=== PATIENT | male | born 1980 | race Caucasian/White ===

== ENCOUNTER 2017-11-06 06:40 | Emergency (ER) | payer BC, OTHER ==
[2017-11-06 06:50] VITALS: BP 168/101; PULSE 83; RESP 17; TEMP 97.5
[2017-11-06] MEDS ORDERED: IBUPROFEN 400 MG TAB PO STA (07:38)
[2017-11-06] MEDS ORDERED: traMADol 50 MG TAB PO STA (07:38)
--- NOTE | 2017-11-06 08:31 | ED ---
General Adult HPI - General Chief complaint: Back Pain/Injury Stated complaint: BACK PAIN Time Seen by Provider: 11/06/17 08:15 Source: patient, RN notes reviewed Mode of arrival: ambulatory Limitations: no limitations - History of Present Illness Initial comments: 37-year-old male who presents emergency room today with chief complaint of pain to the left side of his neck. He states that he has had some pain for last 3 weeks started when he woke up 3 weeks ago. He went to a chiropractor which did help some. He states he was working yesterday has had more increased irritation was unable to sleep last night. Patient states is worse with movements of the left shoulder he does have some radiation going down left arm into proximal forearm area. States pain worse with rotation of the head and neck to the left and right. He denies any other injuries or traumas. Denies any other complaints associated symptoms. Patient denies any recent fever, chills, shortness of breath, chest pain, back pain, abdominal pain, nausea or vomiting, dysuria or hematuria, constipation or diarrhea, headaches or visual changes, or any other complaints. - Related Data Home Medications Medication Instructions Recorded Confirmed Acetaminophen Tab [Tylenol Tab] 650 mg PO Q6H PRN 11/06/17 11/06/17 Ibuprofen [Motrin] 200 - 400 mg PO Q6HR PRN 11/06/17 11/06/17 Ranitidine HCl [Zantac] 150 mg PO BID 11/06/17 11/06/17 Previous Rx's Medication Instructions Recorded Cyclobenzaprine [Flexeril] 10 mg PO TID #20 tab 11/06/17 Dexamethasone 0.75 mg PO DIRECTED #12 tablet 11/06/17 Hydrocodone/Acetaminophen [Hammond 1 each PO Q6HR PRN #12 tab 11/06/17 5-325] Ibuprofen [Motrin] 800 mg PO Q6HR #30 tab 11/06/17 Allergies Allergy/AdvReac Type Severity Reaction Status Date / Time No Known Allergies Allergy Verified 11/06/17 07:56 Review of Systems ROS Statement: Those systems with pertinent positive or pertinent negative responses have been documented in the HPI. ROS Other: All systems not noted in ROS Statement are negative. Past Medical History Past Medical History: No Reported History History of Any Multi-Drug Resistant Organisms: None Reported Past Surgical History: Cholecystectomy, Orthopedic Surgery Additional Past Surgical History / Comment(s): sinus Past Psychological History: No Psychological Hx Reported Smoking Status: Never smoker Past Alcohol Use History: None Reported Past Drug Use History: None Reported General Exam - General Exam Comments Initial Comments: General: The patient is awake and alert, in no distress, and does not appear acutely ill. Eye: Pupils are equal, round and reactive to light, extra-ocular movements are intact. No nystagmus. There is normal conjunctiva bilaterally. No signs of icterus. Ears, nose, mouth and throat: There are moist mucous membranes and no oral lesions. Neck: The neck is supple, there is no tenderness or JVD. Cardiovascular: There is a regular rate and rhythm. No murmur, rub or gallop is appreciated. Respiratory: Lungs are clear to auscultation, respirations are non-labored, breath sounds are equal. No wheezes, stridor, rales, or rhonchi. Musculoskeletal: Normal appearance of cervical, thoracic, lumbar spine with no step-offs forms. No tenderness midline. Patient does have tenderness in the trapezius area on the left. Pain reproduced with certain movements and on palpation. Strength 5/5. Sensation intact. Pulses equal bilaterally 2+. Neurological: A&O x 3. CN II-XII intact, There are no obvious motor or sensory deficits. Coordination appears grossly intact. Speech is normal. Skin: Skin is warm and dry and no rashes or lesions are noted. Psychiatric: Cooperative, appropriate mood & affect, normal judgment. Limitations: no limitations Course Vital Signs 11/06/17 06:45 Temperature 97.5 F L Pulse Rate 83 Respiratory 17 Rate Blood Pressure 168/101 O2 Sat by Pulse 96 Oximetry Medical Decision Making - Medical Decision Making Patient will be treated with pain medication, anti-inflammatories, musculoskeletal and steroids. He is advised follow family doctor or orthopedics in the next 2 days to have further evaluation possible MRI. Patient must return to the emergency room symptoms increase worsen or for any other concerns. He states understanding and is in agreement. Disposition Clinical Impression: Cervical radiculopathy Disposition: HOME SELF-CARE Condition: Good Instructions: Cervical Radiculopathy (ED) Additional Instructions: Please use medication as discussed. Please follow-up with orthopedic/family doctor in the next 2 days of symptoms have not improved. Please return to emergency room if the symptoms increase or worsen or for any other concerns. Prescriptions: Cyclobenzaprine [Flexeril] 10 mg PO TID #20 tab Dexamethasone 0.75 mg PO DIRECTED #12 tablet Hydrocodone/Acetaminophen [Hammond 5-325] 1 each PO Q6HR PRN #12 tab PRN Reason: Pain Ibuprofen [Motrin] 800 mg PO Q6HR #30 tab Referrals: Camacho Brown MD [Primary Care Provider] - 1-2 days Yara Crump DO [Doctor of Osteopathic Medicine] - 1-2 days Time of Disposition: 08:28
[2017-11-06] MEDS ORDERED: CYCLOBENZAPRINE 10MG STARTER 3 TAB BTL PO STA (08:39)
== END 2017-11-06 08:45 | disposition home or self-care (01) ==
LOC: EC 06:40
DX: M54.12 Radiculopathy, cervical region (principal); Z79.899 Other long term (current) drug therapy
CPT/HCPCS: 99283

== ENCOUNTER 2019-09-18 09:03 | Emergency (ER) | payer OTHER ==
[2019-09-18 09:26] VITALS: RESP 16
--- NOTE | 2019-09-18 09:28 | ED ---
General Adult HPI - General Chief complaint: Recheck/Abnormal Lab/Rx Stated complaint: abn EKG Time Seen by Provider: 09/18/19 09:08 Source: patient Mode of arrival: ambulatory Limitations: no limitations - History of Present Illness Initial comments: Dictation was produced using [employer] dictation software. please excuse any grammatical, word or spelling errors. Chief Complaint: 39-year-old male sent in from urgent care for abnormal EKG. History of Present Illness:-year-old male U was seen at the urgent care earlier today. He was seen at the clinic for chest pain and shortness of breath. Patient has been having URI type symptoms with cough productive of green sputum. Patient also has been having runny nose. Patient was evaluated at the urgent care and EKG was performed showing abnormality. Patient was then referred to come to the emergency department for further care. Patient states he has some mild chest pain that is sharp and worse with coughing.. No radiation. No associated diaphoresis or nausea. Patient has a history of blood clots. Denies any lower extremity symptoms. The ROS documented in this emergency department record has been reviewed and confirmed by me. Those systems with pertinent positive or negative responses have been documented in the HPI. All other systems are other negative and/or noncontributory. PHYSICAL EXAM: General Impression: Alert and oriented x3, not in acute distress HEENT: Normocephalic atraumatic, extra-ocular movements intact, pupils equal and reactive to light bilaterally, mucous membranes moist. Cardiovascular: Heart regular rate and rhythm, S1&S2 audible, no murmurs, rubs or gallops Chest: Lungs clear to auscultation bilaterally, no rhonchi, no wheeze, no rales Abdomen: Bowel sounds present, abdomen soft, non-tender, non-distended, no organomegaly Musculoskeletal: Pulses present and equal in all extremities, no peripheral edema Motor: no focal deficits noted Neurological: CN II-XII grossly intact, no focal motor or sensory deficits noted Skin: Intact with no visualized rashes Psych: Normal affect and mood ED course: 39 old male presents with abnormal EKG. He reports URI symptoms. Upon arrival are within acceptable limits. EKG from clinic was reviewed showing incomplete. On a branch block with a QRS of 107. There appears to be some ST depressions in the lateral precordial leads. EKG performed at our facility showing redemonstration of incomplete right bundle branch block without any signs of ischemia or infarction. Laboratory evaluation obtained found to be unremarkable. D-dimer is negative. Troponins negative. for pulmonary embolus. patient's pain is atypical. ekg appears benign. patient told to follow up with primary care physician upon discharge. is given prescriptions for zithromax pack. Return parameters discussed. All questions answered. Patient clear for discharge. EKG interpretation: Ventricular rate 94, normal sinus rhythm, and complete right bundle branch block, VT interval 140, care is 102, QTc 455. No VT prolongation, no QTC prolongation, no ST or T-wave changes noted. No old EKG for comparison. Overall, this EKG is unremarkable - Related Data Home Medications Medication Instructions Recorded Confirmed Acetaminophen Tab [Tylenol Tab] 1,000 mg PO Q6HR PRN 09/18/19 09/18/19 Fluticasone/Vilanterol [Breo 1 puff INHALATION RT-DAILY 09/18/19 09/18/19 Ellipta 100-25 Mcg Inhaler] Ibuprofen [Motrin Ib] 800 mg PO Q6H PRN 09/18/19 09/18/19 Previous Rx's Medication Instructions Recorded Azithromycin [Zithromax Z-pack] 0 mg PO DIRECTED #6 tab 09/18/19 Allergies Allergy/AdvReac Type Severity Reaction Status Date / Time No Known Allergies Allergy Verified 09/18/19 10:14 Review of Systems ROS Statement: Those systems with pertinent positive or pertinent negative responses have been documented in the HPI. ROS Other: All systems not noted in ROS Statement are negative. Past Medical History Past Medical History: No Reported History History of Any Multi-Drug Resistant Organisms: None Reported Past Surgical History: Cholecystectomy, Orthopedic Surgery Additional Past Surgical History / Comment(s): sinus Past Psychological History: No Psychological Hx Reported Smoking Status: Never smoker Past Alcohol Use History: None Reported Past Drug Use History: None Reported General Exam Limitations: no limitations Course Vital Signs 09/18/19 09/18/19 09:04 09:25 Temperature 98.3 F Pulse Rate 90 84 Respiratory 18 16 Rate Blood Pressure 146/89 O2 Sat by Pulse 99 99 Oximetry Medical Decision Making - Lab Data Result diagrams: 09/18/19 09:22 09/18/19 09:22 Lab Results 09/18/19 09/18/19 09/18/19 Range/Units 09:22 09:22 09:22 WBC 10.2 (3.8-10.6) k/uL RBC 4.59 (4.30-5.90) m/uL Hgb 14.8 (13.0-17.5) gm/dL Hct 42.2 (39.0-53.0) % MCV 91.8 (80.0-100.0) fL MCH 32.2 (25.0-35.0) pg MCHC 35.1 (31.0-37.0) g/dL RDW 12.6 (11.5-15.5) % Plt Count 277 (150-450) k/uL Neutrophils % 72 % Lymphocytes % 19 % Monocytes % 5 % Eosinophils % 1 % Basophils % 1 % Neutrophils # 7.4 (1.3-7.7) k/uL Lymphocytes # 1.9 (1.0-4.8) k/uL Monocytes # 0.5 (0-1.0) k/uL Eosinophils # 0.1 (0-0.7) k/uL Basophils # 0.1 (0-0.2) k/uL PT 10.0 (9.0-12.0) sec INR 0.9 (<1.2) APTT 25.8 (22.0-30.0) sec D-Dimer <0.17 (<0.60) mg/L FEU Sodium 142 (137-145) mmol/L Potassium 4.1 (3.5-5.1) mmol/L Chloride 105 (98-107) mmol/L Carbon Dioxide 26 (22-30) mmol/L Anion Gap 11 mmol/L BUN 23 H (9-20) mg/dL Creatinine 0.84 (0.66-1.25) mg/dL Est GFR (CKD-EPI)AfAm >90 (>60 ml/min/1.73 sqM) Est GFR (CKD-EPI)NonAf >90 (>60 ml/min/1.73 sqM) Glucose 119 H (74-99) mg/dL Calcium 10.7 H (8.4-10.2) mg/dL Magnesium 2.0 (1.6-2.3) mg/dL Troponin I (0.000-0.034) ng/mL 09/18/19 Range/Units 09:22 WBC (3.8-10.6) k/uL RBC (4.30-5.90) m/uL Hgb (13.0-17.5) gm/dL Hct (39.0-53.0) % MCV (80.0-100.0) fL MCH (25.0-35.0) pg MCHC (31.0-37.0) g/dL RDW (11.5-15.5) % Plt Count (150-450) k/uL Neutrophils % % Lymphocytes % % Monocytes % % Eosinophils % % Basophils % % Neutrophils # (1.3-7.7) k/uL Lymphocytes # (1.0-4.8) k/uL Monocytes # (0-1.0) k/uL Eosinophils # (0-0.7) k/uL Basophils # (0-0.2) k/uL PT (9.0-12.0) sec INR (<1.2) APTT (22.0-30.0) sec D-Dimer (<0.60) mg/L FEU Sodium (137-145) mmol/L Potassium (3.5-5.1) mmol/L Chloride (98-107) mmol/L Carbon Dioxide (22-30) mmol/L Anion Gap mmol/L BUN (9-20) mg/dL Creatinine (0.66-1.25) mg/dL Est GFR (CKD-EPI)AfAm (>60 ml/min/1.73 sqM) Est GFR (CKD-EPI)NonAf (>60 ml/min/1.73 sqM) Glucose (74-99) mg/dL Calcium (8.4-10.2) mg/dL Magnesium (1.6-2.3) mg/dL Troponin I <0.012 (0.000-0.034) ng/mL Disposition Clinical Impression: Chest wall muscle strain Disposition: HOME SELF-CARE Condition: Good Instructions (If sedation given, give patient instructions): Chest Pain (ED) Prescriptions: Azithromycin [Zithromax Z-pack] 0 mg PO DIRECTED #6 tab Is patient prescribed a controlled substance at d/c from ED?: No Referrals: Papa Kitchen MD [Primary Care Provider] - 1-2 days Time of Disposition: 11:01
[2019-09-18 09:40] LABS: Basophils # (A) 0.1 k/uL (0-0.2); Basophils % (A) 1 %; Eosinophils # (A) 0.1 k/uL (0-0.7); Eosinophils % (A) 1 %; HCT 42.2 % (39.0-53.0); HGB 14.8 gm/dL (13.0-17.5); Lymphocytes # (A) 1.9 k/uL (1.0-4.8); Lymphocytes % (A) 19 %; MCH 32.2 pg (25.0-35.0); MCHC 35.1 g/dL (31.0-37.0); MCV 91.8 fL (80.0-100.0); Mean Platelet Volume 6.4; Monocytes # (A) 0.5 k/uL (0-1.0); Monocytes % (A) 5 %; Neutrophils # (A) 7.4 k/uL (1.3-7.7); Neutrophils % (A) 72 %; Platelet Count 277 k/uL (150-450); RBC 4.59 m/uL (4.30-5.90); RDW 12.6 % (11.5-15.5); WBC 10.2 k/uL (3.8-10.6)
[2019-09-18 09:45] LABS: African American GFR (CKD) >90 (>60 ml/min/1.73 sqM); Anion Gap 11 mmol/L; Blood Urea Nitrogen 23 mg/dL (9-20); Calcium 10.7 mg/dL (8.4-10.2); Carbon Dioxide 26 mmol/L (22-30); Chloride 105 mmol/L (98-107); Glucose 119 mg/dL (74-99); Non-African American GFR(CKD) >90 (>60 ml/min/1.73 sqM); Potassium 4.1 mmol/L (3.5-5.1); Sodium 142 mmol/L (137-145)
--- NOTE | 2019-09-18 09:49 | XR ---
EXAMINATION TYPE: XR chest 2V DATE OF EXAM: 09/18/2019 COMPARISON: None INDICATION: Abnormal EKG TECHNIQUE: Frontal and lateral views of the chest are obtained. FINDINGS: The heart size is normal. The pulmonary vasculature is normal. The lungs are clear. IMPRESSION: 1. No acute pulmonary process.
[2019-09-18 09:56] LABS: INR 0.9 (<1.2); Partial Thromboplastin Time 25.8 sec (22.0-30.0)
[2019-09-18 10:07] LABS: D-Dimer <0.17 mg/L FEU (<0.60)
[2019-09-18 11:14] VITALS: BP 151/97; PULSE 86; TEMP 98
== END 2019-09-18 11:13 | disposition home or self-care (01) ==
LOC: EC 09:03
DX: S29.011A Strain of muscle and tendon of front wall of thorax, initial encounter (principal); I45.10 Unspecified right bundle-branch block; Z79.51 Long term (current) use of inhaled steroids
CPT/HCPCS: 36415; 71046; 80048; 83735; 84484; 85025; 85379; 85610; 85730; 93005; 99285

== ENCOUNTER → 2021-03-24 | Outpatient (CLI) | payer OTHER ==
[2021-03-24 15:13] LABS: Basophils # (A) 0.09 X 10*3/uL (0.00-0.10); Basophils % (A) 0.7 %; Eosinophils # (A) 0.08 X 10*3/uL (0.04-0.35); Eosinophils % (A) 0.6 %; HCT 46.8 % (39.6-50.0); Lymphocytes # (A) 3.48 X 10*3/uL (0.90-5.00); Lymphocytes % (A) 27.2 %; MCH 30.5 pg (27.0-32.0); MCHC 32.1 g/dL (32.0-37.0); MCV 95.1 fL (80.0-97.0); Mean Platelet Volume 10.4 fL (9.5-12.2); Monocytes # (A) 0.84 X 10*3/uL (0.20-1.00); Monocytes % (A) 6.6 %; Neutrophils # (A) 7.97 X 10*3/uL (1.80-7.70); Neutrophils % (A) 62.2 %; Platelet Count 267 X 10*3/uL (140-440); RBC 4.92 X 10*6/uL (4.40-5.60); RDW 13.2 % (11.5-14.5)
[2021-03-24 18:21] LABS: Hemoglobin A1C 5.5 % (4.0-6.0)
[2021-03-24 19:21] LABS: Gliadin AB IgA, Deaminated NEGATIVE (NEGATIVE); Gliadin AB IgA, Unit <0.2 U/mL; Gliadin AB IgG, Deaminated NEGATIVE (NEGATIVE)
[2021-03-25 01:51] LABS: Chol/HDL Ratio 3.69; LDL Cholesterol,Calculated 108.2 mg/dL (0.0-131.0); VLDL Calculation 23.8 mg/dL (5.00-40.00)
[2021-03-25 01:52] LABS: African American GFR (CKD) 107.9 (60.0-200.0); Albumin 4.7 g/dL (3.80-4.90); Albumin/Globulin Ratio 1.88 (1.60-3.17); Globulin 2.5 g/dL (1.6-3.3); Non-African American GFR(CKD) 93.1 (60.0-200.0); Potassium 4.5 mmol/L (3.5-5.5); Prostate Specific Antigen 0.6 ng/mL (0.0-2.5); Total Bilirubin 0.8 mg/dL (0.3-1.2); Total Protein 7.2 g/dL (6.2-8.2)
[2021-03-25 15:33] LABS: Immunoglobulin E 3.61 IU/mL (0.00-114.00)
[2021-03-26 18:20] LABS: Cow's Milk IgG 52.1 mcg/mL (< 2.0)
== END | disposition home or self-care (01) ==
LOC: LABWHC1 08:07
PROVIDERS: ATTEND Family Medicine
DX: Z00.00 Encounter for general adult medical examination without abnormal findings (principal); E23.0 Hypopituitarism; T78.1XXA Other adverse food reactions, not elsewhere classified, initial encounter
CPT/HCPCS: 36415; 80053; 80061; 82672; 82785; 83036; 83516; 84153; 84402; 84403; 84443; 85025; 86001

== ENCOUNTER 2021-04-05 13:24 | Emergency (ER) | payer OTHER ==
[2021-04-05 13:44] VITALS: BP 143/96; PULSE 88; RESP 20; TEMP 97.9
[2021-04-05] MEDS ORDERED: KETOROLAC 15 MG/ML 1 ML VIAL IM STA (13:57)
[2021-04-05] MEDS ORDERED: CYCLOBENZAPRINE 10 MG TAB PO STA (13:57)
[2021-04-05] MEDS ORDERED: LIDOCAINE 5% PATCH TOPICAL STA (13:57)
--- NOTE | 2021-04-05 13:57 | ED ---
Back Pain HPI - General Chief Complaint: Back Pain/Injury Stated Complaint: back pain Time Seen by Provider: 04/05/21 13:55 Source: patient, EMS Limitations: no limitations - History of Present Illness Initial Comments: 40-year-old male presents to the emergency department with a chief complaint of back pain. He has history of chronic back pain that comes and goes. States thi s most recent bout started approximately 2 weeks ago with gradual increase in severity. States it is located on the left paraspinal lumbar region with radiation to the left lower extremity. He states he is not able to ambulate. Pain exacerbated with any weightbearing or twisting motion on his back. He denies any direct injuries to the back. Denies saddle anesthesia, urinary retention with overflow or bowel incontinence. - Related Data Home Medications Medication Instructions Recorded Confirmed Cyclobenzaprine [Flexeril] 10 mg PO Q8H PRN 04/05/21 04/05/21 Ibuprofen [Motrin] 800 mg PO Q8H PRN 04/05/21 04/05/21 Omeprazole 20 mg PO DAILY 04/05/21 04/05/21 Allergies Allergy/AdvReac Type Severity Reaction Status Date / Time No Known Allergies Allergy Verified 04/05/21 13:57 Review of Systems ROS Statement: Those systems with pertinent positive or pertinent negative responses have been documented in the HPI. ROS Other: All systems not noted in ROS Statement are negative. Past Medical History Past Medical History: No Reported History History of Any Multi-Drug Resistant Organisms: None Reported Past Surgical History: Cholecystectomy, Orthopedic Surgery Additional Past Surgical History / Comment(s): sinus Past Psychological History: No Psychological Hx Reported Past Alcohol Use History: None Reported Past Drug Use History: None Reported General Exam Limitations: no limitations General appearance: alert, in no apparent distress, obese Head exam: Present: atraumatic, normocephalic, normal inspection Eye exam: Present: normal appearance, PERRL, EOMI Pupils: Present: normal accommodation ENT exam: Present: normal exam, normal oropharynx, mucous membranes moist Neck exam: Present: normal inspection, full ROM. Absent: tenderness, lymphadenopathy Respiratory exam: Present: normal lung sounds bilaterally. Absent: respiratory distress Cardiovascular Exam: Present: regular rate, normal rhythm, normal heart sounds. Absent: systolic murmur GI/Abdominal exam: Present: soft. Absent: distended, tenderness, guarding, rigid Extremities exam: Present: normal inspection, full ROM, normal capillary refill. Absent: tenderness Back exam: Present: normal inspection, full ROM, tenderness, paraspinal tenderness (left paraspinal tenderness), other (Positive leg raise test) Neurological exam: Present: alert, oriented X3 Psychiatric exam: Present: normal affect, normal mood Skin exam: Present: warm, dry, intact, normal color Course Vital Signs 04/05/21 13:36 Temperature 97.9 F Pulse Rate 88 Respiratory 20 Rate Blood Pressure 143/96 O2 Sat by Pulse 95 Oximetry Disposition Clinical Impression: Mechanical back pain, Lumbar radiculopathy Disposition: HOME SELF-CARE Condition: Stable Instructions (If sedation given, give patient instructions): Acute Low Back Pain (ED) Additional Instructions: Please return to the Emergency Department if symptoms worsen or any other concerns. Follow-up with technical maintenance specialist. Take prescribed medication as directed. Is patient prescribed a controlled substance at d/c from ED?: No Referrals: Papa Kitchen MD [Primary Care Provider] - 1-2 days Mukesh Choi DO [Doctor of Osteopathic Medicine] - 1-2 days Time of Disposition: 15:11
--- NOTE | 2021-04-05 14:45 | XR ---
EXAMINATION TYPE: XR lumbar spine 2 or 3V DATE OF EXAM: 04/05/2021 COMPARISON: NONE HISTORY: Low back pain TECHNIQUE: 3 views lumbar spine FINDINGS: There are 4 nonrib-bearing lumbar-type vertebral bodies. Vertebral body heights are preserved. Multil evel endplate sclerosis and osteophytosis is noted predominantly at the thoracolumbar junction. IMPRESSION: 1. 4 nonrib-bearing lumbar type vertebral bodies. 2. Multilevel disc disease.
== END 2021-04-05 15:19 | disposition home or self-care (01) ==
LOC: EC 13:24
DX: M54.16 Radiculopathy, lumbar region (principal)
CPT/HCPCS: 72100; 99283; 96372; J1885

== ENCOUNTER → 2021-04-19 | Outpatient (CLI) | payer OTHER ==
--- NOTE | 2021-04-20 04:04 | MR ---
EXAMINATION TYPE: MR lumbar spine wo con DATE OF EXAM: 04/19/2021 COMPARISON: None HISTORY: LBP, LLE radiculopathy. Multiplanar multiecho imaging of the lumbar spine was performed without contrast. The vertebra have normal alignment. There is some decreased signal in the L5-S1 disc. Disc spaces ove rall are fairly normal. There is no compression fracture. There is no paraspinal mass. Sacroiliac otoniel nts are intact. The posterior elements are intact. There is a small posterior disc bulge at L5-S1. IMPRESSION: Small posterior disc bulging at L5-S1. No fracture. There is developmentally small spinal canal and t his patient is at higher risk for acquired spinal stenosis.
== END | disposition home or self-care (01) ==
LOC: RADMRIMAIN 21:57
PROVIDERS: ATTEND Family Medicine
DX: M51.17 Intervertebral disc disorders with radiculopathy, lumbosacral region (principal)
CPT/HCPCS: 72148

== ENCOUNTER 2022-06-21 06:27 | Emergency (ER) | payer OTHER ==
[2022-06-21] MEDS ORDERED: KETOROLAC 15 MG/ML 1 ML VIAL IVP STA (06:35)
[2022-06-21] MEDS ORDERED: SODIUM CHLORIDE 0.9% 1,000 ML IV STA (06:35)
[2022-06-21] MEDS ORDERED: HYDROmorphone 0.5 MG/0.5 ML SYRINGE IVP STA (06:35)
[2022-06-21] MEDS ORDERED: SODIUM CHLORIDE 0.9% 500 ML 500 ML IV STA (06:35)
--- NOTE | 2022-06-21 06:50 | ED ---
General Adult HPI - General Stated complaint: Abdominal Pain Time Seen by Provider: 06/21/22 06:35 Source: patient, EMS Mode of arrival: EMS Limitations: no limitations - History of Present Illness Initial comments: 41-year-old male presents emergency department via EMS with chief complaint of abdominal pain. Patient states that pain started yesterday worsened throughout the night. Patient states started in his upper abdomen states is not located in her lower abdomen bilaterally and rates his back. Patient states severe pain is did receive fentanyl by EMS which minimally helped. Patient has no dysuria no hematuria. Patient states that he has had a prior cholecystomy, appendectomy. Patient denies any fevers or chills slight nausea was given Zofran. No chest pain or shortness breath at this time. - Related Data Home Medications Medication Instructions Recorded Confirmed Cyclobenzaprine [Flexeril] 10 mg PO Q8H PRN 04/05/21 04/05/21 Ibuprofen [Motrin] 800 mg PO Q8H PRN 04/05/21 04/05/21 Omeprazole 20 mg PO DAILY 04/05/21 04/05/21 Previous Rx's Medication Instructions Recorded Amoxic-Pot Clav 875-125Mg 1 tab PO Q12HR #20 tab 06/21/22 [Augmentin 875-125] Ondansetron Odt [Zofran Odt] 4 mg PO Q8HR PRN #10 tab 06/21/22 Allergies Allergy/AdvReac Type Severity Reaction Status Date / Time No Known Allergies Allergy Verified 04/05/21 13:57 Review of Systems ROS Statement: Those systems with pertinent positive or pertinent negative responses have been documented in the HPI. ROS Other: All systems not noted in ROS Statement are negative. Past Medical History Past Medical History: No Reported History History of Any Multi-Drug Resistant Organisms: None Reported Past Surgical History: Cholecystectomy, Orthopedic Surgery Additional Past Surgical History / Comment(s): sinus Past Psychological History: No Psychological Hx Reported Past Alcohol Use History: None Reported Past Drug Use History: None Reported General Exam General appearance: alert, in no apparent distress Head exam: Present: atraumatic, normocephalic, normal inspection Eye exam: Present: normal appearance, PERRL, EOMI. Absent: scleral icterus, conjunctival injection, periorbital swelling ENT exam: Present: normal exam, normal oropharynx, mucous membranes moist Neck exam: Present: normal inspection, full ROM. Absent: tenderness, meningismus, lymphadenopathy Respiratory exam: Present: normal lung sounds bilaterally. Absent: respiratory distress, wheezes, rales, rhonchi, stridor Cardiovascular Exam: Present: regular rate, normal rhythm, normal heart sounds. Absent: systolic murmur, diastolic murmur, rubs, gallop, clicks GI/Abdominal exam: Present: soft, tenderness, normal bowel sounds. Absent: distended, guarding, rebound, rigid Neurological exam: Present: alert, oriented X3, CN II-XII intact Skin exam: Present: warm, dry, intact, normal color. Absent: rash Course Vital Signs 06/21/22 07:01 Temperature 99.1 F Pulse Rate 107 H Respiratory 20 Rate Blood Pressure 108/77 O2 Sat by Pulse 94 L Oximetry Medical Decision Making - Medical Decision Making 41-year-old male present emergency department with complaints of lower abdominal pain, CAT scan shows evidence of acute diverticulitis patient has mild leukocytosis. There is no abscess or perforation noted. Patient will be discharged on clear liquid diet, oral antibiotics, pain control return parameters were discussed. - Lab Data Result diagrams: 06/21/22 07:18 Lab Results 06/21/22 Range/Units 07:18 WBC 18.2 H (3.8-10.6) k/uL RBC 5.11 (4.30-5.90) m/uL Hgb 16.0 (13.0-17.5) gm/dL Hct 48.4 (39.0-53.0) % MCV 94.7 (80.0-100.0) fL MCH 31.2 (25.0-35.0) pg MCHC 33.0 (31.0-37.0) g/dL RDW 13.2 (11.5-15.5) % Plt Count 229 (150-450) k/uL MPV 9.5 Neutrophils % 90 % Lymphocytes % 5 % Monocytes % 3 % Eosinophils % 2 % Basophils % 0 % Neutrophils # 16.4 H (1.3-7.7) k/uL Lymphocytes # 1.0 (1.0-4.8) k/uL Monocytes # 0.5 (0-1.0) k/uL Eosinophils # 0.3 (0-0.7) k/uL Basophils # 0.0 (0-0.2) k/uL Disposition Clinical Impression: Diverticulitis Disposition: HOME SELF-CARE Condition: Stable Instructions (If sedation given, give patient instructions): Diverticulitis (ED), Diverticulitis Diet (ED) Additional Instructions: Please return to the Emergency Department if symptoms worsen or any other concerns. Prescriptions: Amoxic-Pot Clav 875-125Mg [Augmentin 875-125] 1 tab PO Q12HR #20 tab Ondansetron Odt [Zofran Odt] 4 mg PO Q8HR PRN #10 tab PRN Reason: Nausea Is patient prescribed a controlled substance at d/c from ED?: No Referrals: Papa Kitchen MD [Primary Care Provider] - 1-2 days Time of Disposition: 08:54
[2022-06-21] MEDS ORDERED: ONDANSETRON 4 MG/2 ML VIAL IVP STA (07:52)
[2022-06-21 08:00] LABS: Basophils % (A) 0 %; Eosinophils # (A) 0.3 k/uL (0-0.7); Eosinophils % (A) 2 %; HCT 48.4 % (39.0-53.0); Lymphocytes % (A) 5 %; MCH 31.2 pg (25.0-35.0); MCV 94.7 fL (80.0-100.0); Mean Platelet Volume 9.5; Monocytes # (A) 0.5 k/uL (0-1.0); Monocytes % (A) 3 %; Neutrophils # (A) 16.4 k/uL (1.3-7.7); Neutrophils % (A) 90 %; Platelet Count 229 k/uL (150-450); RBC 5.11 m/uL (4.30-5.90); RDW 13.2 % (11.5-15.5); WBC 18.2 k/uL (3.8-10.6)
--- NOTE | 2022-06-21 08:49 | CT ---
EXAMINATION TYPE: CT abdomen pelvis w con CT DLP: 2696.4 mGycm, Automated exposure control for dose reduction was used. DATE OF EXAM: 06/21/2022 8:34 AM COMPARISON: None CLINICAL INDICATION:Male, 41 years old with history of abdominal pain; Abdominal pain TECHNIQUE: Axial CT of the abdomen and pelvis. Sagittal and coronal reformats were created on a [employer] workstation. Contrast used:100 mL of Isovue 300 with IV Contrast, Oral contrast used: without Oral Contrast FINDINGS: LOWER CHEST: Unremarkable ABDOMEN LIVER: Diffusely hypoattenuating parenchyma. GALLBLADDER AND BILE DUCTS: The gallbladder is surgically absent. PANCREAS: Unremarkable. SPLEEN: Unremarkable. ADRENAL GLANDS: Unremarkable. KIDNEYS AND URETERS: No evidence of hydronephrosis or renal calculus. The ureters are unremarkable. Right renal cyst. PELVIS BLADDER: Unremarkable REPRODUCTIVE: Unremarkable. ABDOMEN & PELVIS STOMACH AND BOWEL: There are colonic diverticula present, one of which has adjacent fat stranding marc nges. No organizing fluid collection or evidence of pneumoperitoneum. No evidence of bowel obstructio n. PERITONEUM: No evidence of pneumoperitoneum or free fluid. VASCULATURE: No evidence of aortic aneurysm. MUSCULOSKELETAL: No acute osseous abnormalities LYMPH NODES: No gross evidence for lymphadenopathy. SOFT TISSUE/ABDOMINAL WALL: Bilateral fat filled inguinal hernias. Small fat-containing umbilical her haydee. IMPRESSION: 1. Acute uncomplicated sigmoid colon diverticulitis.
[2022-06-21] MEDS ORDERED: ACET/COD 300 MG/30 MG STARTER PACK 6 TAB BTL PO STA (08:55)
[2022-06-21 09:21] VITALS: BP 108/71; PULSE 98; RESP 18; TEMP 98.9
== END 2022-06-21 10:09 | disposition home or self-care (01) ==
LOC: EC 06:27
DX: K57.32 Diverticulitis of large intestine without perforation or abscess without bleeding (principal)
CPT/HCPCS: 99284 ×2; 96374 ×2; 96375 ×2; 36415; 85025; 74177; 96361; J2405; J1885; J1170; Q9967

== ENCOUNTER 2022-06-22 14:28 | Inpatient (IN) | payer OTHER ==
[2022-06-22] MEDS ORDERED: HYDROmorphone 0.5 MG/0.5 ML SYRINGE IVP STA (14:33)
[2022-06-22] MEDS ORDERED: SODIUM CHLORIDE 0.9% 2,000 ML IV STA (14:33)
--- NOTE | 2022-06-22 14:38 | ED ---
Abdominal Pain HPI - General Chief Complaint: Abdominal Pain Stated Complaint: abd pain Time Seen by Provider: 06/22/22 14:30 Source: patient, EMS, RN notes reviewed Mode of arrival: EMS Limitations: no limitations - History of Present Illness Initial Comments: 41-year-old male presents emergency department via EMS chief complaint abdominal pain. Patient states started about 3 days ago seen here yesterday had full workup including labs, CT patient found to have acute diverticulitis. Patient has taken 3 doses of Augmentin states that the pain is intensified, unable tolerate pain, oral intake at home. Patient had episodes of vomiting. States his upper and lower abdominal pain. She had some loose stools report hot and cold flashes no reported fever. No chest pain or shortness of breath - Related Data Home Medications Medication Instructions Recorded Confirmed Omeprazole 20 mg PO DAILY 04/05/21 06/21/22 Testosterone Cypionate 200 mg IM Q14D 06/21/22 06/21/22 [Depo-Testosterone] Previous Rx's Medication Instructions Recorded Amoxic-Pot Clav 875-125Mg 1 tab PO Q12HR #20 tab 06/21/22 [Augmentin 875-125] Ondansetron Odt [Zofran Odt] 4 mg PO Q8HR PRN #10 tab 06/21/22 Allergies Allergy/AdvReac Type Severity Reaction Status Date / Time No Known Allergies Allergy Verified 06/22/22 14:33 Review of Systems ROS Statement: Those systems with pertinent positive or pertinent negative responses have been documented in the HPI. ROS Other: All systems not noted in ROS Statement are negative. Past Medical History Past Medical History: No Reported History History of Any Multi-Drug Resistant Organisms: None Reported Past Surgical History: Cholecystectomy, Orthopedic Surgery Additional Past Surgical History / Comment(s): sinus Past Psychological History: No Psychological Hx Reported Smoking Status: Never smoker Past Alcohol Use History: None Reported Past Drug Use History: None Reported General Exam Limitations: no limitations General appearance: alert, in no apparent distress Head exam: Present: atraumatic, normocephalic, normal inspection Eye exam: Present: normal appearance, PERRL, EOMI. Absent: scleral icterus, c onjunctival injection, periorbital swelling ENT exam: Present: normal exam, normal oropharynx, mucous membranes moist Neck exam: Present: normal inspection, full ROM. Absent: tenderness, meningismus, lymphadenopathy Respiratory exam: Present: normal lung sounds bilaterally. Absent: respiratory distress, wheezes, rales, rhonchi, stridor Cardiovascular Exam: Present: regular rate, normal rhythm, normal heart sounds. Absent: systolic murmur, diastolic murmur, rubs, gallop, clicks GI/Abdominal exam: Present: soft, tenderness, normal bowel sounds. Absent: distended, guarding, rebound, rigid Back exam: Absent: CVA tenderness (R), CVA tenderness (L) Skin exam: Present: warm, dry, intact, normal color. Absent: rash Course Vital Signs 06/22/22 14:31 Temperature 100.4 F H Pulse Rate 96 Respiratory 18 Rate Blood Pressure 127/79 O2 Sat by Pulse 96 Oximetry Medical Decision Making - Medical Decision Making 41-year-old male presented for recheck of abdominal pain, diverticulitis. Patient had prior CT which showed diverticulitis without perforation or abscess. Patient's white count is elevated 18,000, increasing pain on control pain at home having multiple episodes of vomiting will be admitted for IV antibiotics, pain control. - Lab Data Result diagrams: 06/22/22 14:43 06/22/22 14:43 Lab Results 06/22/22 06/22/22 06/22/22 Range/Units 14:43 14:43 14:43 WBC 19.1 H (3.8-10.6) k/uL RBC 4.84 (4.30-5.90) m/uL Hgb 14.6 (13.0-17.5) gm/dL Hct 45.7 (39.0-53.0) % MCV 94.5 (80.0-100.0) fL MCH 30.2 (25.0-35.0) pg MCHC 31.9 (31.0-37.0) g/dL RDW 12.8 (11.5-15.5) % Plt Count 205 (150-450) k/uL MPV 8.2 Neutrophils % 89 % Lymphocytes % 5 % Monocytes % 3 % Eosinophils % 1 % Basophils % 0 % Neutrophils # 17.1 H (1.3-7.7) k/uL Lymphocytes # 0.9 L (1.0-4.8) k/uL Monocytes # 0.7 (0-1.0) k/uL Eosinophils # 0.3 (0-0.7) k/uL Basophils # 0.1 (0-0.2) k/uL Sodium 134 L (137-145) mmol/L Potassium 3.7 (3.5-5.1) mmol/L Chloride 99 (98-107) mmol/L Carbon Dioxide 22 (22-30) mmol/L Anion Gap 13 mmol/L BUN 14 (9-20) mg/dL Creatinine 0.85 (0.66-1.25) mg/dL Est GFR (CKD-EPI)AfAm >90 (>60 ml/min/1.73 sqM) Est GFR (CKD-EPI)NonAf >90 (>60 ml/min/1.73 sqM) Glucose 108 H (74-99) mg/dL Plasma Lactic Acid Balbir 1.1 (0.7-2.0) mmol/L Calcium 8.5 (8.4-10.2) mg/dL Total Bilirubin 2.6 H (0.2-1.3) mg/dL AST 79 H (17-59) U/L ALT 118 H (4-49) U/L Alkaline Phosphatase 85 (38-126) U/L Total Protein 6.8 (6.3-8.2) g/dL Albumin 4.0 (3.5-5.0) g/dL Disposition Clinical Impression: Acute diverticulitis, Failure of outpatient treatment, Abdominal pain Disposition: ADMITTED IP TO THIS HOSP Condition: Fair Referrals: Papa Kitchen MD [Primary Care Provider] - 1-2 days Time of Disposition: 15:42
[2022-06-22 14:53] LABS: Basophils # (A) 0.1 k/uL (0-0.2); Basophils % (A) 0 %; Eosinophils # (A) 0.3 k/uL (0-0.7); Eosinophils % (A) 1 %; HCT 45.7 % (39.0-53.0); HGB 14.6 gm/dL (13.0-17.5); Lymphocytes # (A) 0.9 k/uL (1.0-4.8); Lymphocytes % (A) 5 %; MCH 30.2 pg (25.0-35.0); MCHC 31.9 g/dL (31.0-37.0); MCV 94.5 fL (80.0-100.0); Mean Platelet Volume 8.2; Monocytes # (A) 0.7 k/uL (0-1.0); Monocytes % (A) 3 %; Neutrophils # (A) 17.1 k/uL (1.3-7.7); Neutrophils % (A) 89 %; Platelet Count 205 k/uL (150-450); RBC 4.84 m/uL (4.30-5.90); RDW 12.8 % (11.5-15.5); WBC 19.1 k/uL (3.8-10.6)
[2022-06-22 15:02] LABS: ALT 118 U/L (4-49); AST 79 U/L (17-59); African American GFR (CKD) >90 (>60 ml/min/1.73 sqM); Alkaline Phosphatase 85 U/L (38-126); Anion Gap 13 mmol/L; Blood Urea Nitrogen 14 mg/dL (9-20); Calcium 8.5 mg/dL (8.4-10.2); Carbon Dioxide 22 mmol/L (22-30); Chloride 99 mmol/L (98-107); Glucose 108 mg/dL (74-99); Non-African American GFR(CKD) >90 (>60 ml/min/1.73 sqM); Potassium 3.7 mmol/L (3.5-5.1); Sodium 134 mmol/L (137-145); Total Bilirubin 2.6 mg/dL (0.2-1.3); Total Protein 6.8 g/dL (6.3-8.2)
[2022-06-22] MEDS ORDERED: NALOXONE 0.4 MG/ML 1 ML VIAL IV PRN (15:42)
[2022-06-22] MEDS ORDERED: HYDROmorphone 0.5 MG/0.5 ML SYRINGE IVP PRN (15:42)
[2022-06-22] MEDS ORDERED: ONDANSETRON 4 MG/2 ML VIAL IVP PRN (15:42)
[2022-06-22] MEDS ORDERED: ACETAMINOPHEN TAB 500 MG TAB PO STA (15:44)
[2022-06-22] MEDS ORDERED: PIPERACILLIN-TAZOBACTAM 3.375 GM in SODIUM CHLORIDE 0.9% 100 ML IVPB STA (15:46)
[2022-06-22] MEDS: SODIUM CHLORIDE 0.9% 1,000 ML IV SCH (15:54)
--- NOTE | 2022-06-22 15:55 | XR ---
EXAMINATION TYPE: XR KUB DATE OF EXAM: 06/22/2022 COMPARISON: 01/04/2015 INDICATION: Abdomen pain nausea vomiting TECHNIQUE: Single view abdomen upright view FINDINGS: There are air-fluid levels within small bowel loops within the midabdomen. Some air-fluid levels or w ithin the ascending colon region. Correlate for gastroenteritis. Consider ileus. Follow-up can be per formed as clinically indicated. Psoas margins are normal. No organomegaly is present. IMPRESSION: 1. Small bowel air-fluid levels within the midabdomen with air also present within the colon and some air fluid levels in the ascending colon region. Gastroenteritis and ileus are favored within the dif ferential. Mild partial small bowel obstruction should be considered. Follow up exams can be performe d as clinically indicated
--- NOTE | 2022-06-22 16:26 | P.HPIM ---
History of Present Illness H&P Date: 06/22/22 Patient is a 41-year-old male with no significant past medical history presents the ED for abdominal pain. He was recently seen on 06/21/[address] abdomen and pelvis at that time demonstrated acute uncomplicated sigmoid colon diverticulitis and patient was discharged home on Augmentin. He presented back to the ED on 06/22/2022 for worsening abdominal pain. Patient reports abdominal pain ongoing for the past 3 days. Pain is generalized all over his abdomen. Pain is colicky in nature. Pain is 10 out of 10 in severity. Pain does not radiate. Pain is associated with nausea and vomiting along with chills. He denies any headache, lower extremity edema, cough, chest pain, shortness of breath, palpitations, changes in urination or bowel habits. Patient reports a decreased appetite. He denies any lightheadedness, numbness/weakness/tingling of the extremities. In the ER, he was tachycardic with heart rate of 96 and T-max of 100.4 Fahrenheit. Vital signs otherwise stable. CBC showed leukocytosis of 19.1 with neutrophilia. CMP showed sodium 134 glucose 108, total bilirubin of 2.6, AST of 79, ALT of 118. Patient is admitted for sepsis related to diverticulitis, failed outpatient therapy. Review of systems is performed and is negative except above. General: [non toxic], [no distress], [appears at stated age] Derm: [warm], [dry] Head: [atraumatic], [normocephalic], [symmetric] Eyes: [EOMI], [no lid lag], [anicteric sclera] Mouth: [no lip lesion], [mucus membranes moist] Cardiovascular: [Tachycardic], [no murmur] Lungs: [CTA bilateral], [no rhonchi, no rales] , [no accessory muscle use] Abdominal: [soft], [tenderness to palpation in all 4 quadrants without rebound], [no guarding], [no appreciable organomegaly] Ext: [no gross muscle atrophy], [no edema], [no contractures] Neuro: [no focal neuro deficits] Psych: [Alert], [oriented], [appropriate affect] #Sepsis #Acute diverticulitis #Transaminitis #Morbid obesity Patient currently meets sepsis criteria with tachycardia, leukocytosis and a positive source of infection. CT AP positive for acute diverticulitis. Patient was started on Zosyn and Flagyl. Blood cultures are collected. Lactic acid will be ordered. Patient be placed on telemetry monitoring. Normal saline at 130 mL per hour. Patient reports history of cholecystectomy. Review of home medication shows that the patient is on testosterone supplementation. Gallbladder ultrasound will be obtained. Patient will benefit from a structured weight loss program. DVT prophylaxis: [Heparin] Discussed with: [Patient] Anticipated discharge: [2-3 days] Anticipated discharge place: [Home] A total of [35] minutes was spent on the care of this complex patient more than 50% of the time was spent in counseling and care coordination. Patient names his decision maker if he can't make decisions for himself. Patient would like to be full code. Past Medical History Past Medical History: No Reported History History of Any Multi-Drug Resistant Organisms: None Reported Past Surgical History: Cholecystectomy, Orthopedic Surgery Additional Past Surgical History / Comment(s): sinus Past Psychological History: No Psychological Hx Reported Smoking Status: Never smoker Past Alcohol Use History: None Reported Past Drug Use History: None Reported Medications and Allergies Home Medications Medication Instructions Recorded Confirmed Type Omeprazole 20 mg PO DAILY 04/05/21 06/22/22 History Amoxic-Pot Clav 875-125Mg 1 tab PO Q12HR #20 tab 06/21/22 06/22/22 Rx [Augmentin 875-125] Ondansetron Odt [Zofran Odt] 4 mg PO Q8HR PRN #10 tab 06/21/22 06/22/22 Rx Testosterone Cypionate 200 mg IM Q14D 06/21/22 06/22/22 History [Depo-Testosterone] Allergies Allergy/AdvReac Type Severity Reaction Status Date / Time No Known Allergies Allergy Verified 06/22/22 16:06 Physical Exam Vitals: Vital Signs Temp Pulse Resp BP Pulse Ox 06/22/22 14:31 100.4 F H 96 18 127/79 96 Intake and Output 06/22/22 06/22/22 06/22/22 06:59 14:59 22:59 Other: Weight 138.346 kg Results CBC & Chem 7: 06/22/22 14:43 06/22/22 14:43 Labs: Abnormal Lab Results - Last 24 Hours (Table) 06/22/22 06/22/22 Range/Units 14:43 14:43 WBC 19.1 H (3.8-10.6) k/uL Neutrophils # 17.1 H (1.3-7.7) k/uL Lymphocytes # 0.9 L (1.0-4.8) k/uL Sodium 134 L (137-145) mmol/L Glucose 108 H (74-99) mg/dL Total Bilirubin 2.6 H (0.2-1.3) mg/dL AST 79 H (17-59) U/L ALT 118 H (4-49) U/L
[2022-06-22] MEDS ORDERED: metroNIDAZOLE-NS PMX 500 MG in SALINE 1 100ML.BAG IVPB SCH (17:00)
[2022-06-22] MEDS: HYDROmorphone 1 MG/ML 1 ML SYRINGE IVP PRN ×2 (18:04→21:50)
[2022-06-22] MEDS: HEPARIN SODIUM,PORCINE/PF 5,000 UNIT/0.5 ML SYRINGE SQ SCH (20:00)
[2022-06-22] MEDS: metroNIDAZOLE-NS PMX 500 MG in SALINE 1 100ML.BAG IVPB SCH (20:02)
[2022-06-23] MEDS ORDERED: PIPERACILLIN-TAZOBACTAM 3.375 GM in SODIUM CHLORIDE 0.9% 100 ML IVPB SCH ×2
[2022-06-23] MEDS: SODIUM CHLORIDE 0.9% 1,000 ML IV SCH ×4 (00:02→22:45)
[2022-06-23] MEDS ORDERED: MORPHINE SULFATE 4 MG/ML SYRINGE IM STA (00:26)
[2022-06-23] MEDS ORDERED: SIMETHICONE 80 MG CHEWABLE PO PRN (01:00)
[2022-06-23] MEDS ORDERED: MORPHINE SULFATE 4 MG/ML SYRINGE IVP ONE (01:00)
--- NOTE | 2022-06-23 02:16 | CT ---
EXAMINATION TYPE: CT abdomen pelvis w con DATE OF EXAM: 06/23/2022 COMPARISON: 06/23/2022 HISTORY: Abd pain CT DLP: 2362.10 mGycm Automated exposure control for dose reduction was used. CONTRAST: Performed with IV Contrast, patient injected with 100 mL of Isovue 300. Images obtained from the diaphragm to the floor the pelvis with the IV contrast. There is mild subsegmental atelectasis left lung base. Heart size is normal. No pericardial effusion. No pleural effusion. There is mild pneumoperitoneum. There are multiple air bubbles in the anterior abdomen in the periton eal space. The liver and spleen are intact. The stomach is intact. No pancreatic mass. There are clip s from cholecystectomy. The bile ducts are not dilated. There is no adrenal mass. Kidneys have normal size and contour. No hydronephrosis. There is 2 cm bhavana ical cyst posterior right kidney. Ureters are not dilated. No retroperitoneal adenopathy. The bladder distends smoothly. There is extensive fat stranding in the pelvis around the sigmoid colon. There are extraluminal air b ubbles. There are multiple sigmoid diverticula. Appendix not seen. There are bilateral fat-containing inguinal hernias. No evidence of a bowel obstruction. Delayed images show normal renal excretion. The lumbar vertebrae have normal alignment. No compression fracture. The bony pelvis is intact. The h ip joints are intact. IMPRESSION: There is pneumoperitoneum. There is sigmoid diverticulitis with fat stranding and extraluminal air bu bbles. There is significant increase in the peritoneal air compared to last exam 2 days ago. There is increased fat stranding that raises the possibility of peritonitis. Follow-up recommended.
--- NOTE | 2022-06-23 02:32 | P.EN ---
Notified by the patient's RN that patient endorsed worsening abdominal pain. The patient was subsequently seen at the bedside and reported that the as needed Dilaudid had not alleviated his pain. Reported that he was 10 out of 10 at the time of interview and that his pain had appeared to be worsening. The patient was also noted to be tachycardic with pulse 128 and BP 109/77. 4 mg of IV push morphine was administered and a CT abdomen and pelvis with contrast was ordered. Subsequently discussed the case with the findings of the computed tomography scan with radiologist on-call Dr. Alba who noted that the patient appears to have significant pneumoperitoneum without any obvious drainable collection or abscess. He suspected perforated diverticuli as a source. General: Non-toxic, in moderate distress, appears stated age, obese HEENT: NC/AT, anicteric sclerae, moist conjunctiva, no lid-lag, PERRLA Cardiovascular: S1/S2 wnl, no murmurs, rubs, or gallops Lungs: Clear to auscultation, normal respiratory effort, no accessory muscle use Abdominal: Distended, mild tenderness, no guarding or rebound Skin: Warm, dry Extremities: No edema or contractures Psychiatric: Alert and oriented to person, place and time, appropriate affect Neuro: CN II-XII grossly intact, Strength 5/5 in all 4 extremities, Speech intact, Sensation to light touch grossly intact throughout Assessment/plan Perforated diverticulitis with pneumoperitoneum -Continue with broad-spectrum antibiotics IV Zosyn and Flagyl -Stat surgery consult placed, awaiting callback -Continue IV fluids
[2022-06-23] MEDS ORDERED: SODIUM CHLORIDE 0.9% 1,000 ML IV ONE (02:35)
[2022-06-23] MEDS: PIPERACILLIN-TAZOBACTAM 3.375 GM in SODIUM CHLORIDE 0.9% 100 ML IVPB SCH ×4 (02:40→19:54)
[2022-06-23] MEDS: HYDROmorphone 1 MG/ML 1 ML SYRINGE IVP PRN ×6 (02:47→23:36)
[2022-06-23] MEDS: KETOROLAC 15 MG/ML 1 ML VIAL IVP SCH ×5 (02:47→23:37)
[2022-06-23] MEDS: ACETAMINOPHEN IV (For NPO) 1,000 MG in EMPTY BAG 1 BAG IVPB SCH ×5 (03:44→22:45)
--- NOTE | 2022-06-23 03:58 | P.GSCN ---
History of Present Illness Consult date: 06/23/22 History of present illness: REASON FOR CONSULTATION: Perforated diverticulitis HISTORY OF PRESENT ILLNESS: The patient is a 41 year old male who recently presented to the emergency room 06/21/2022 for left lower quadrant abdominal pain. At that time he was diagnosed with uncomplicated diverticulitis. He was placed on antibiotics and sent home. He did present with tachycardia including with WBC over 15,000. He then returned back to the hospital the next day r eporting increased left lower quadrant abdominal pain. He reports his pain was 10 out of 10 when he present to the hospital. Upon transfer to his room yesterday afternoon, he complained primarily of epigastric pain. He had temperatures over 100.0 Fahrenheit. He later had a repeat computed tomography scan demonstrating perforated diverticulitis. Since evaluation, patient has received Toradol, Dilaudid. He reports his pain is tolerable. He is able to move around in bed. Overall, he reports having abdominal pain intermittently for over 1 month unaware of his recent diagnosis. He reports constipation prior to this event. Denies moderate abdominal distention. He also reports earlier this evening having an abdominal cramping with a bowel movement which propagated the severity of his pain. At this time, his pain is mild. General surgery is consulted for perforated diverticulitis. PAST MEDICAL HISTORY: See list and reviewed PAST SURGICAL HISTORY: See list and reviewed MEDICATIONS: See list and reviewed ALLERGIES: See list and reviewed SOCIAL HISTORY: See list and reviewed FAMILY HISTORY: See list and reviewed REVIEW OF ORGAN SYSTEMS: CONSTITUTIONAL: No fevers or chills. Has morbid obesity, BMI 42.5 EYES: Denies any trouble with vision. No glasses. HEENT: No difficulties with hearing. No nosebleeds. No difficulty swallowing. RESPIRATORY: Denies pneumonia. Denies any troubles with breathing or dyspnea on exertion. CARDIOVASCULAR: Denies any chest pain, palpitations, or recent heart attacks. GASTROINTESTINAL: Denies fatty food intolerance. Recent constipation. GENITOURINARY: Denies any blood in urine or increased urinary frequency. NEUROLOGICAL: Denies any numbness or tingling along the distal extremities. No seizure disorders or headaches. MUSCULOSKELETAL: Has back pain, stiffness or joint arthritis. SKIN: No current skin cancer. No rash. PSYCHIATRIC: Denies current depression or suicidal thoughts. ENDOCRINE: Denies current thyroid disorders. Denies any blood sugar glucose intolerance. Reports vitamin D deficiency. HEME/LYMPHATIC: Denies any lumps and bumps around the neck. No recent deep venous thrombosis. ALLERGY/IMMUNOLOGY: No immunoglobulin therapy. No immune deficiencies. BREAST: Denies current breast lumps, pain or nipple discharge. PHYSICAL EXAM: VITALS: Reviewed CONSTITUTIONAL: Well developed and in no acute distress. EYES: Conjuctivae without sclera icterus. Extraocular movements grossly intact. HEAD, EARS, NOSE, THROAT: Moist buccal mucosa. Head is atraumatic, normocephalic. Hears conversational speech. No nasal drainage. NECK: Supple. No JV distention. No thyroidomegaly. RESPIRATORY: Non-labored respirations and equal bilateral excursions. No gross wheezes. CARDIOVASCULAR: Palpable 2+ radial pulses. ABDOMEN: Obese, protuberant, mild distention. No diffuse peritonitis. Localized tenderness epigastrium. Mild tenderness left lower quadrant to mild palpation. LYMPH: No neck lymphadenopathy. MUSCULOSKELETAL: No clubbing cyanosis or edema. SKIN: Warm and well perfused with good skin turgor. NEUROLOGIC: Cranial nerves II through XII grossly intact. No focal or lateralizing signs. PSYCH: Appropriate affect. Alert and oriented to person, place and time. Displays appropriate insight. CLINCAL LABS: Reviewed. WBC elevated at 19.1. Hemoglobin 14.4, normal. Creatinine normal 0.85. LFTs elevated including total bilirubin 2.5. IMAGING: Independently reviewed. CT of the abdomen and pelvis from 06/21/2022 demonstrates inflammation of the sigmoid colon. Repeat computed tomography scan 06/23/2022 perforated sigmoid colon with free air along the anterior abdominal wall. Punctate loculations of air of the upper abdomen noted. This is my independent interpretation. No abscesses or large fluid collection identified. RADIOLOGY: Report reviewed of CT abdomen 06/23/2022 demonstrates new pneumoperitoneum and perforated sigmoid diverticulitis. RECORDS: previous old records reviewed. August 2019 demonstrates incomplete right bundle branch block, nonspecific ST abnormality, abnormal EKG. EKG: Repeat EKG demonstrates similar changes with incomplete right bundle branch block ASSESSMENT: 1. Perforated sigmoid diverticulitis with pneumoperitoneum 2. Morbid obesity due to excess calories, BMI 42.5 3. Leukocytosis with fevers, sepsis 4. Elevated liver enzymes PLAN: 1. IV fluid hydration advised with recent elevated LFTs. Repeat lactate level pending. 2. Surgical options of exploratory laparotomy with descending colostomy was described. Patient reports improvement of his abdominal pain. Alternatively, serial abdominal exams with close management and IV antibiotics also discussed. Patient wanted conservative management with deferral of surgical intervention at this time. 3. Nothing by mouth. May have ice chips. 4. Scheduled nonnarcotic pain management reviewed and started with intravenous Tylenol and intravenous ibuprofen. 5. Continue IV antibiotics Zosyn. 6. Reviewed the patient that worsening of clinical decline, emergent surgical intervention warranted. 7. Recommend echo for abnormal EKG. 8. Recommend DVT prophylaxis with SCDs 9. All questions including care plan discussed which shared decision-making performed with patient. Patient agreeable with plan of care. Thank you for this kind consultation. Past Medical History Past Medical History: No Reported History History of Any Multi-Drug Resistant Organisms: None Reported Past Surgical History: Cholecystectomy, Orthopedic Surgery Additional Past Surgical History / Comment(s): sinus Past Anesthesia/Blood Transfusion Reactions: No Reported Reaction Additional Past Anesthesia/Blood Transfusion Reaction / Comm: Nauea Past Psychological History: No Psychological Hx Reported Smoking Status: Never smoker Past Alcohol Use History: None Reported Past Drug Use History: None Reported Medications and Allergies Home Medications Medication Instructions Recorded Confirmed Type Omeprazole 20 mg PO DAILY 04/05/21 06/22/22 History Amoxic-Pot Clav 875-125Mg 1 tab PO Q12HR #20 tab 06/21/22 06/22/22 Rx [Augmentin 875-125] Ondansetron Odt [Zofran Odt] 4 mg PO Q8HR PRN #10 tab 06/21/22 06/22/22 Rx Testosterone Cypionate 200 mg IM Q14D 06/21/22 06/22/22 History [Depo-Testosterone] Allergies Allergy/AdvReac Type Severity Reaction Status Date / Time No Known Allergies Allergy Verified 06/22/22 16:06 Surgical - Exam Vital Signs Temp Pulse Resp BP Pulse Ox 100.4 F H 96 18 127/79 96 06/22/22 14:31 06/22/22 14:31 06/22/22 14:31 06/22/22 14:31 06/22/22 14:31 Results - Labs 06/22/22 14:43 06/22/22 14:43 Abnormal Lab Results - Last 24 Hours (Table) 06/22/22 06/22/22 Range/Units 14:43 14:43 WBC 19.1 H (3.8-10.6) k/uL Neutrophils # 17.1 H (1.3-7.7) k/uL Lymphocytes # 0.9 L (1.0-4.8) k/uL Sodium 134 L (137-145) mmol/L Glucose 108 H (74-99) mg/dL Total Bilirubin 2.6 H (0.2-1.3) mg/dL AST 79 H (17-59) U/L ALT 118 H (4-49) U/L Diabetes panel 06/22/22 Range/Units 14:43 Sodium 134 L (137-145) mmol/L Potassium 3.7 (3.5-5.1) mmol/L Chloride 99 (98-107) mmol/L Carbon Dioxide 22 (22-30) mmol/L BUN 14 (9-20) mg/dL Creatinine 0.85 (0.66-1.25) mg/dL Glucose 108 H (74-99) mg/dL Calcium 8.5 (8.4-10.2) mg/dL AST 79 H (17-59) U/L ALT 118 H (4-49) U/L Alkaline Phosphatase 85 (38-126) U/L Total Protein 6.8 (6.3-8.2) g/dL Albumin 4.0 (3.5-5.0) g/dL Calcium panel 06/22/22 Range/Units 14:43 Calcium 8.5 (8.4-10.2) mg/dL Albumin 4.0 (3.5-5.0) g/dL Pituitary panel 06/22/22 Range/Units 14:43 Sodium 134 L (137-145) mmol/L Potassium 3.7 (3.5-5.1) mmol/L Chloride 99 (98-107) mmol/L Carbon Dioxide 22 (22-30) mmol/L BUN 14 (9-20) mg/dL Creatinine 0.85 (0.66-1.25) mg/dL Glucose 108 H (74-99) mg/dL Calcium 8.5 (8.4-10.2) mg/dL Adrenal panel 06/22/22 Range/Units 14:43 Sodium 134 L (137-145) mmol/L Potassium 3.7 (3.5-5.1) mmol/L Chloride 99 (98-107) mmol/L Carbon Dioxide 22 (22-30) mmol/L BUN 14 (9-20) mg/dL Creatinine 0.85 (0.66-1.25) mg/dL Glucose 108 H (74-99) mg/dL Calcium 8.5 (8.4-10.2) mg/dL Total Bilirubin 2.6 H (0.2-1.3) mg/dL AST 79 H (17-59) U/L ALT 118 H (4-49) U/L Alkaline Phosphatase 85 (38-126) U/L Total Protein 6.8 (6.3-8.2) g/dL Albumin 4.0 (3.5-5.0) g/dL
[2022-06-23] MEDS: metroNIDAZOLE-NS PMX 500 MG in SALINE 1 100ML.BAG IVPB SCH ×4 (04:35→21:46)
[2022-06-23 06:47] LABS: Basophils % (A) 0 %; Eosinophils % (A) 0 %; HCT 41.9 % (39.0-53.0); HGB 13.6 gm/dL (13.0-17.5); Lymphocytes # (A) 0.7 k/uL (1.0-4.8); Lymphocytes % (A) 4 %; MCHC 32.5 g/dL (31.0-37.0); MCV 95.2 fL (80.0-100.0); Monocytes # (A) 0.6 k/uL (0-1.0); Monocytes % (A) 3 %; Neutrophils # (A) 14.9 k/uL (1.3-7.7); Neutrophils % (A) 91 %; Platelet Count 208 k/uL (150-450); RDW 12.8 % (11.5-15.5); WBC 16.4 k/uL (3.8-10.6)
[2022-06-23 07:12] LABS: ALT 81 U/L (4-49); AST 44 U/L (17-59); African American GFR (CKD) >90 (>60 ml/min/1.73 sqM); Albumin 3.1 g/dL (3.5-5.0); Albumin/Globulin Ratio 1.3; Alkaline Phosphatase 61 U/L (38-126); Anion Gap 11 mmol/L; Blood Urea Nitrogen 14 mg/dL (9-20); Calcium 7.7 mg/dL (8.4-10.2); Carbon Dioxide 24 mmol/L (22-30); Chloride 101 mmol/L (98-107); Globulin 2.4 g/dL; Glucose 100 mg/dL (74-99); Non-African American GFR(CKD) >90 (>60 ml/min/1.73 sqM); Potassium 3.6 mmol/L (3.5-5.1); Sodium 136 mmol/L (137-145); Total Bilirubin 1.8 mg/dL (0.2-1.3); Total Protein 5.5 g/dL (6.3-8.2)
[2022-06-23] MEDS: HEPARIN SODIUM,PORCINE/PF 5,000 UNIT/0.5 ML SYRINGE SQ SCH ×2 (08:15→19:17)
[2022-06-23] MEDS: PANTOPRAZOLE 40 MG/10 ML VIAL IV SCH (08:15)
--- NOTE | 2022-06-23 09:00 | P.PN ---
Subjective Progress Note Date: 06/23/22 CHIEF COMPLAINT: Perforated diverticulitis HISTORY OF PRESENT ILLNESS: The patient is a 41 year old male who presented to the hospital acute onset lower abdominal pain after recent visit in the emergency room. This morning, patient was assessed for abnormal computed tomography scan for pneumoperitoneum. Patient was adjusted on his antibiotics including pain medication. This morning, patient reports feeling much better. He is passing flatus and had a bowel movement, no blood. He reports resolution of his abdominal distention. Denies any diffuse abdominal pain. His pain is now minimal. He just completed a bedside Echo. He reports pre-existing history of abnormal EKGs, without any further workup. REVIEW OF ORGAN SYSTEMS: CONSTITUTIONAL: Has fevers or chills. Has morbid obesity, BMI 42.5 GASTROINTESTINAL: Denies fatty food intolerance. Recent constipation. MUSCULOSKELETAL: Has back pain, stiffness or joint arthritis. PHYSICAL EXAM: VITALS: Reviewed CONSTITUTIONAL: Well developed and in no acute distress. EYES: Conjuctivae without sclera icterus. Extraocular movements grossly intact. HEAD, EARS, NOSE, THROAT: Moist buccal mucosa. Head is atraumatic, normocephalic. Hears conversational speech. No nasal drainage. NECK: Supple. No JV distention. No thyroidomegaly. RESPIRATORY: Non-labored respirations and equal bilateral excursions. CARDIOVASCULAR: Palpable 2+ radial pulses. ABDOMEN: Obese, protuberant. Decrease abdominal distention. MUSCULOSKELETAL: No clubbing cyanosis or edema. SKIN: Warm and well perfused with good skin turgor. NEUROLOGIC: Cranial nerves II through XII grossly intact. No focal or lateralizing signs. PSYCH: Appropriate affect. Alert and oriented to person, place and time. Displays appropriate insight. CLINCAL LABS: Reviewed. WBC elevated at 19.1 now 16.1. ASSESSMENT: 1. Perforated sigmoid diverticulitis with pneumoperitoneum 2. Morbid obesity due to excess calories, BMI 42.5 3. Leukocytosis with fevers, sepsis 4. Elevated liver enzymes PLAN: 1. Patient was on antibiotics and failed antibiotic management. Infectious disease consultation obtained. 2. Patient has pre-existing history of abnormal EKG without previous cardiac workup. Cardiology consultation obtained. 3. Continue ice chips and popsicles for 24 hours 4. PICC line ordered due to failed outpatient antibiotics 5. Consultation to dietitian for diverticulitis diet 6. Disposition pending resolution of leukocytosis, tolerating liquid diet, anti cipated for 48-72 hours. 7. May start liquid diet in tomorrow morning pending continued clinical im provement. 8. Shared decision making performed and patient agreeable with care plan. All questions addressed. 9. Risk for emergent colectomy also reviewed with clinical decline. 10. Maintain oxygen sats over 92% CRITICAL CARE TIME: Cumulative critical care time over 46 minutes. Objective - Vital Signs Vital signs: Vital Signs Temp 98.9 F 06/23/22 03:55 Pulse 111 H 06/23/22 05:56 Resp 18 06/23/22 03:55 BP 123/78 06/23/22 03:55 Pulse Ox 92 L 06/23/22 03:55 FiO2 Intake & Output 06/22/22 06/23/22 06/23/22 18:59 06:59 18:59 Intake Total 3000 Balance 3000 Weight 138.346 kg 138.346 kg Intake: Intake, IV Titration 2700 Amount ACETAMINOPHEN IV (For NPO 100 ) 1,000 mg In Empty Bag 1 bag @ 400 mls/hr IVPB Q6HR [facility] Rx#:[id number] Piperacillin-Tazobactam 3 100 .375 gm In Sodium Chloride 0.9% 100 ml @ 25 mls/hr IVPB Q6H [facility] Rx#: [id number] Sodium Chloride 0.9% 1, 1300 000 ml @ 130 mls/hr IV . Q7H42M [facility] Rx#:[id number] Sodium Chloride 0.9% 1, 1000 000 ml @ 999 mls/hr IV . Q1H1M [facility] Rx#:[id number] metroNIDAZOLE-NS PMX 500 200 mg In Saline 1 100ml.bag @ 100 mls/hr IVPB Q8H [facility] Rx#:[id number] Oral 300 Other: Voiding Method Toilet # Voids 6 # Bowel Movements 2 - Labs CBC & Chem 7: 06/23/22 06:21 06/23/22 06:21 Labs: Abnormal Lab Results - Last 24 Hours (Table) 06/22/22 06/22/22 06/23/22 Range/Units 14:43 14:43 06:21 WBC 19.1 H 16.4 H (3.8-10.6) k/uL Neutrophils # 17.1 H 14.9 H (1.3-7.7) k/uL Lymphocytes # 0.9 L 0.7 L (1.0-4.8) k/uL Sodium 134 L (137-145) mmol/L Glucose 108 H (74-99) mg/dL Calcium (8.4-10.2) mg/dL Total Bilirubin 2.6 H (0.2-1.3) mg/dL AST 79 H (17-59) U/L ALT 118 H (4-49) U/L Total Protein (6.3-8.2) g/dL Albumin (3.5-5.0) g/dL 06/23/22 Range/Units 06:21 WBC (3.8-10.6) k/uL Neutrophils # (1.3-7.7) k/uL Lymphocytes # (1.0-4.8) k/uL Sodium 136 L (137-145) mmol/L Glucose 100 H (74-99) mg/dL Calcium 7.7 L (8.4-10.2) mg/dL Total Bilirubin 1.8 H (0.2-1.3) mg/dL AST (17-59) U/L ALT 81 H (4-49) U/L Total Protein 5.5 L (6.3-8.2) g/dL Albumin 3.1 L (3.5-5.0) g/dL
[2022-06-23 09:29] LABS: INR 1.2 (<1.2); Prothrombin Time 12.3 sec (9.0-12.0)
[2022-06-23] MEDS ORDERED: LIDOCAINE 1% INJ 10MG/ML (30 ML VIAL-PF) SQ ONE (10:37)
--- NOTE | 2022-06-23 10:53 | CA ---
Transthoracic Echo Report Name: Jeramie Patton Age: 41 Gender: M : 1980 Exam Date: 06/23/2022 07:56 Exam Location: [place] [facility] Ht (in): 71 Wt (lb): 305 Ordering Physician: Leanna Chavez MD Attending/Referring Phys: Kathy CARVAJAL Visual Design Lead Samantha Melendez RDCS Procedure CPT: Indications: abnormal ekg Cardiac Hx: Technical Quality: Technically difficult study Contrast 1: Lumason Total Dose (mL): 1 Contrast 2: Total Dose (mL): MEASUREMENTS (Male / Female) Normal Values 2D ECHO LV Diastolic Diameter PLAX 5.4 cm 4.2 - 5.9 / 3.9 - 5.3 cm LV Systolic Diameter PLAX 4.1 cm IVS Diastolic Thickness 1.2 cm 0.6 - 1.0 / 0.6 - 0.9 cm LVPW Diastolic Thickness 1.2 cm 0.6 - 1.0 / 0.6 - 0.9 cm LV Relative Wall Thickness 0.4 RV Internal Dim ED PLAX 3.8 cm M-MODE Aortic Root Diameter MM 4.0 cm LA Systolic Diameter MM 3.0 cm LA Ao Ratio MM 0.7 MV E Point Septal Separation 0.5 cm AV Cusp Separation MM 2.4 cm DOPPLER AV Peak Velocity 134.4 cm/s AV Peak Gradient 7.2 mmHg MV Area PHT 6.0 cm??? MR Peak Velocity 117.2 cm/s MR Peak Gradient 5.5 mmHg Mitral E Point Velocity 81.6 cm/s Mitral A Point Velocity 67.1 cm/s Mitral E to A Ratio 1.2 MV Deceleration Time 125.8 ms TR Peak Velocity 137.9 cm/s TR Peak Gradient 7.6 mmHg Right Ventricular Systolic Press 12.6 mmHg PV Peak Velocity 137.9 cm/s PV Peak Gradient 7.6 mmHg PI Peak Gradient 12.5 mmHg FINDINGS Left Ventricle Mildly increased septal wall thickness. Left ventricular ejection fraction is estimated at 55-60%. No obvious regional wall motion abnormalities. Left ventricular cavity size normal. Right Ventricle The right ventricle is normal in size and function. Right Atrium The right atrium is normal in size. Left Atrium The left atrium is normal in size. Mitral Valve Structurally normal mitral valve without significant stenosis or prolapse. There is trace mitral regurgitation. Aortic Valve Structurally normal aortic valve without significant sclerosis or stenosis. There is no aortic regurgitation. Tricuspid Valve Structurally normal tricuspid valve without significant stenosis. Pulmonary artery systolic pressure is normal. Trace tricuspid regurgitation. Pulmonic Valve Structurally normal pulmonic valve without significant stenosis. There is no pulmonic regurgitation. Pericardium Normal pericardium without effusion. Aorta Aortic dilatation measuring at 3.8 cm CONCLUSIONS Mild LVH Normal left ventricular EF 55-60% Trace mitral regurgitation RVSP 12 Aortic root measuring 3.8 cm Previewed by: Dr. Eugene Saucedo DO (Electronically Signed) Final Date: 23 June 2022 10:52
--- NOTE | 2022-06-23 11:01 | IR ---
PICC LINE PLACEMENT: HISTORY: Infection requiring long-term antibiotic therapy PROCEDURE: Ultrasound and fluoroscopic guidance of PICC line placement. COMPLICATIONS: None ANESTHESIA: 1. 1% Lidocaine locally. FINDINGS/TECHNIQUE: The procedure was explained to the patient. The risks, complications, benefits and alternatives were discussed and any questions were answered. Informed consent was obtained. The patient was placed supine on the fluoroscopic table and prepped and draped in the usual sterile fash ion. Utilizing a 21 gauge needle and sonographic and fluoroscopic guidance, access in the left ceph alic vein was achieved and there is placement of a 0.018 guidewire. The vein is patent. A 4-F sheat h was placed over the guidewire. The guidewire and dilator were removed and a 4-F. PICC line was magi misty through the sheath with the tip at the level of the SVC. The sheath was removed, the catheter wa s flushed and sutured into position. The patient was stable throughout the procedure and remained st able upon discharge from the Department of Radiology. The vein puncture was patent under ultrasound. A nolan scale image was obtained to document patency of the vein punctured. All elements of the maximal barrier technique were utilized. FLUOROSCOPY TIME: 0.2 minutes and 1 images submitted IMPRESSION: Successful PICC line placement under ultrasound and fluoroscopic guidance.
[2022-06-23 11:07] VITALS: BMI 42.5
--- NOTE | 2022-06-23 13:11 | P.PN ---
Subjective Progress Note Date: 06/23/22 Patient is a 41-year-old male with no significant past medical history presents the ED for abdominal pain. He was recently seen on 06/21/[address] abdomen and pelvis at that time demonstrated acute uncomplicated sigmoid colon diverticulitis and patient was discharged home on Augmentin. He presented back to the ED on 06/22/2022 for worsening abdominal pain. Patient reports abdominal pain ongoing for the past 3 days. Pain is generalized all over his abdomen. Pain is colicky in nature. Pain is 10 out of 10 in severity. Pain does not radiate. Pain is associated with nausea and vomiting along with chills. He denies any headache, lower extremity edema, cough, chest pain, shortness of breath, palpitations, changes in urination or bowel habits. Patient reports a decreased appetite. He denies any lightheadedness, numbness/weakness/tingling of the extremities. In the ER, he was tachycardic with heart rate of 96 and T-max of 100.4 Fahrenheit. Vital signs otherwise st able. CBC showed leukocytosis of 19.1 with neutrophilia. CMP showed sodium 134 glucose 108, total bilirubin of 2.6, AST of 79, ALT of 118. Patient is admitted for sepsis related to diverticulitis, failed outpatient therapy. 06/23 Paper Bundler was called last night for worsening abdominal pain. CT abdomen and pelvis was repeated which showed pneumoperitoneum. Surgery was consulted and recommended conservative management, nothing by mouth, IV Tylenol and ibuprofen, IV antibiotics. Echocardiogram was done which showed EF of 55-60% with no regional wall motion abnormalities. CBC shows improving leukocytosis of 16.4. INR 1.2. Lactic acid negative. General: non toxic, no distress, appears at stated age Derm: warm, dry Head: atraumatic, normocephalic, symmetric Eyes: EOMI, no lid lag, anicteric sclera Mouth: no lip lesion, mucus membranes moist Cardiovascular: Tachycardic, no murmur Lungs: CTA bilateral, no rhonchi, no rales , no accessory muscle use Abdominal: soft, tenderness to palpation in all 4 quadrants with rebound tenderness, no guarding, no appreciable organomegaly Ext: no gross muscle atrophy, no edema, no contractures Neuro: no focal neuro deficits Psych: Alert, oriented, appropriate affect #Sepsis #Perforated sigmoid diverticulitis with pneumoperitoneum #Transaminitis #Morbid obesity Patient currently meets sepsis criteria with tachycardia, leukocytosis and a pos itive source of infection. CT AP positive for acute diverticulitis. Patient was started on Zosyn and Flagyl. Scheduled Tylenol and Toradol IV for pain management. Protonix 40 mg IV daily. Blood cultures are pending. Lactic acid negative. Patient be placed on telemetry monitoring. Normal saline at 130 mL per hour. Continue nothing by mouth. Surgery on board. Infectious disease consulted. Cardiology consulted for cardiac risk stratification. Patient reports history of cholecystectomy. Review of home medication shows that the patient is on testosterone supplementation. Patient will benefit from a structured weight loss program. DVT prophylaxis: Heparin Discussed with: Patient Anticipated discharge: 3-[address]: Home A total of 35 minutes was spent on the care of this complex patient more than 50% of the time was spent in counseling and care coordination. Patient names his decision maker if he can't make decisions for himself. Patient would like to be full code. PICC line to be placed today. Patient will need long-term IV antibiotics on discharge. Objective - Vital Signs Vital signs: Vital Signs Temp 98.9 F 06/23/22 03:55 Pulse 111 H 06/23/22 08:00 Resp 18 06/23/22 03:55 BP 123/78 06/23/22 03:55 Pulse Ox 92 L 06/23/22 03:55 FiO2 Intake & Output 06/22/22 06/23/22 06/23/22 18:59 06:59 18:59 Intake Total 3000 Balance 3000 Weight 138.346 kg 138.346 kg 138.346 kg Intake: Intake, IV Titration 2700 Amount ACETAMINOPHEN IV (For NPO 100 ) 1,000 mg In Empty Bag 1 bag @ 400 mls/hr IVPB Q6HR [facility] Rx#:[id number] Piperacillin-Tazobactam 3 100 .375 gm In Sodium Chloride 0.9% 100 ml @ 25 mls/hr IVPB Q6H [facility] Rx#: [id number] Sodium Chloride 0.9% 1, 1300 000 ml @ 130 mls/hr IV . Q7H42M [facility] Rx#:[id number] Sodium Chloride 0.9% 1, 1000 000 ml @ 999 mls/hr IV . Q1H1M [facility] Rx#:[id number] metroNIDAZOLE-NS PMX 500 200 mg In Saline 1 100ml.bag @ 100 mls/hr IVPB Q8H [facility] Rx#:[id number] Oral 300 Other: Voiding Method Toilet # Voids 6 # Bowel Movements 2 - Labs CBC & Chem 7: 06/23/22 06:21 06/23/22 06:21 Labs: Abnormal Lab Results - Last 24 Hours (Table) 06/22/22 06/22/22 06/23/22 Range/Units 14:43 14:43 06:21 WBC 19.1 H 16.4 H (3.8-10.6) k/uL Neutrophils # 17.1 H 14.9 H (1.3-7.7) k/uL Lymphocytes # 0.9 L 0.7 L (1.0-4.8) k/uL PT (9.0-12.0) sec INR (<1.2) Sodium 134 L (137-145) mmol/L Glucose 108 H (74-99) mg/dL Calcium (8.4-10.2) mg/dL Total Bilirubin 2.6 H (0.2-1.3) mg/dL AST 79 H (17-59) U/L ALT 118 H (4-49) U/L Total Protein (6.3-8.2) g/dL Albumin (3.5-5.0) g/dL 06/23/22 06/23/22 Range/Units 06:21 09:00 WBC (3.8-10.6) k/uL Neutrophils # (1.3-7.7) k/uL Lymphocytes # (1.0-4.8) k/uL PT 12.3 H (9.0-12.0) sec INR 1.2 H (<1.2) Sodium 136 L (137-145) mmol/L Glucose 100 H (74-99) mg/dL Calcium 7.7 L (8.4-10.2) mg/dL Total Bilirubin 1.8 H (0.2-1.3) mg/dL AST (17-59) U/L ALT 81 H (4-49) U/L Total Protein 5.5 L (6.3-8.2) g/dL Albumin 3.1 L (3.5-5.0) g/dL
--- NOTE | 2022-06-23 13:36 | P.CRDCN ---
History of Present Illness History of present illness: HISTORY OF PRESENTING ILLNESS Patient is a pleasant 41-year-old male with history of diverticulitis, abnormal EKG, and no other significant disease who presents secondary to worsening abdomi nal pain over the last 3 days. He states he has had occasional episodes of abdominal pain however this was much worse and having low-grade fevers and feeling nauseous. Patient presented and was found to have perforated diverticulitis with pneumoperitoneum. He was found to have leukocytosis with f [place] and sepsis and was placed on antibiotics. He is nothing by mouth. Cardiology was asked to evaluate for preoperative evaluation. He states he has had abnormal EKGs in the past in 2019 EKG did show normal sinus rhythm, incomplete right bundle branch block, nonspecific 0.[address] depressions V3 through V6. His EKG this admission appears similar however tachycardic. He denies any actual chest pain or pressure. He does have mild dyspnea on exertion however is easily able to walk up a flight of stairs without any difficulty. Echocardiogram performed this morning showed EF 55-60%, mild LVH, trace mitral regurgitation and aortic root measuring 3.8 cm. REVIEW OF SYSTEMS At the time of my exam: CONSTITUTIONAL: Denies fever or chills. CARDIOVASCULAR: Denies chest pain, +mild shortness of breath, no orthopnea, PND or palpitations. RESPIRATORY: Denies cough. GASTROINTESTINAL: Denies abdominal pain, diarrhea, constipation, nausea or vomiting. MUSCULOSKELETAL: Denies myalgias. NEUROLOGIC: Denies numbness, tingling or weakness. ENDOCRINE: Denies fatigue, weight change, polydipsia or polyurina. GENITOURINARY: Denies burning, hematuria or urgency with micturation. HEMATOLOGIC: Denies history of anemia or bleeding. PHYSICAL EXAMINATION Vital signs reviewed. CONSTITUTIONAL: No apparent distress, mildly ill appearing HEENT: Head is normocephalic. Pupils are equal, round. Sclerae anicteric. Mucous membranes of the mouth are moist. No JVD. No carotid bruit. CHEST EXAMINATION: Lungs are clear to auscultation. No chest wall tenderness is noted on palpation or with deep breathing. HEART EXAMINATION: Regular rate and rhythm. S1, S2 heard. No murmurs, gallops or rub. ABDOMEN: Soft, nontender. Positive bowel sounds. EXTREMITIES: 2+ peripheral pulses, no lower extremity edema and no calf tenderness. NEUROLOGIC EXAMINATION: Patient is awake, alert and oriented x3. ASSESSMENT 1. Preoperative cardiovascular exam 2. Acute diverticulitis with pneumoperitoneum 3. Sepsis 4. Abnormal EKG 5. Mild aortic root dilation 3.8 cm 6. Mild LVH PLAN Patient does have abnormal EKG however appears similar to previous. Sinus tachycardia reactive secondary to sepsis and pain. Echocardiogram reviewed and without any significant valvular disease and with preserved EF. Patient not [place] ving any unstable angina-type symptoms or heart failure type symptoms and patient is low risk for proposed exploratory laparotomy. Past Medical History Past Medical History: No Reported History History of Any Multi-Drug Resistant Organisms: None Reported Past Surgical History: Cholecystectomy, Orthopedic Surgery Additional Past Surgical History / Comment(s): sinus Past Anesthesia/Blood Transfusion Reactions: No Reported Reaction Additional Past Anesthesia/Blood Transfusion Reaction / Comment(s): [place] Past Psychological History: No Psychological Hx Reported Smoking Status: Never smoker Past Alcohol Use History: None Reported Past Drug Use History: None Reported Medications and Allergies Home Medications Medication Instructions Recorded Confirmed Type Omeprazole 20 mg PO DAILY 04/05/21 06/22/22 History Amoxic-Pot Clav 875-125Mg 1 tab PO Q12HR #20 tab 06/21/22 06/22/22 Rx [Augmentin 875-125] Ondansetron Odt [Zofran Odt] 4 mg PO Q8HR PRN #10 tab 06/21/22 06/22/22 Rx Testosterone Cypionate 200 mg IM Q14D 06/21/22 06/22/22 History [Depo-Testosterone] Allergies Allergy/AdvReac Type Severity Reaction Status Date / Time No Known Allergies Allergy Verified 06/22/22 16:06 Physical Exam Vitals: Vital Signs Temp Pulse Pulse Resp BP BP Pulse Ox 06/23/22 11:22 97.5 F L 104 H 16 132/91 95 06/23/22 08:00 111 H 06/23/22 05:56 111 H 06/23/22 05:24 111 H 06/23/22 03:55 98.9 F 124 H 18 123/78 92 L 06/23/22 02:30 99.4 F 128 H 18 113/75 94 L 06/23/22 00:19 98.3 F 128 H 18 109/77 95 06/22/22 20:00 97 20 06/22/22 19:34 98.6 F 97 20 149/93 95 06/22/22 18:30 100.4 F H 70 18 120/68 98 06/22/22 14:31 100.4 F H 96 18 127/79 96 Intake and Output 06/22/22 06/23/22 06/23/22 22:59 06:59 14:59 Intake Total 3000 Balance 3000 Intake: Intake, IV Titration 2700 Amount ACETAMINOPHEN IV (For NPO 100 ) 1,000 mg In Empty Bag 1 bag @ 400 mls/hr IVPB Q6HR [facility] Rx#:[id number] Piperacillin-Tazobactam 3 100 .375 gm In Sodium Chloride 0.9% 100 ml @ 25 mls/hr IVPB Q6H [facility] Rx#: [id number] Sodium Chloride 0.9% 1, 1300 000 ml @ 130 mls/hr IV . Q7H42M [facility] Rx#:[id number] Sodium Chloride 0.9% 1, 1000 000 ml @ 999 mls/hr IV . Q1H1M [facility] Rx#:[id number] metroNIDAZOLE-NS PMX 500 200 mg In Saline 1 100ml.bag @ 100 mls/hr IVPB Q8H [facility] Rx#:[id number] Oral 300 Other: Voiding Method Toilet # Voids 6 # Bowel Movements 2 Weight 138.346 kg 138.346 kg Results 06/23/22 06:21 06/23/22 06:21 Cardiac Enzymes 06/22/22 06/23/22 Range/Units 14:43 06:21 AST 79 H 44 (17-59) U/L Coagulation 06/23/22 Range/Units 09:00 PT 12.3 H (9.0-12.0) sec CBC 06/22/22 06/23/22 Range/Units 14:43 06:21 WBC 19.1 H 16.4 H (3.8-10.6) k/uL RBC 4.84 4.40 (4.30-5.90) m/uL Hgb 14.6 13.6 (13.0-17.5) gm/dL Hct 45.7 41.9 (39.0-53.0) % Plt Count 205 208 (150-450) k/uL Comprehensive Metabolic Panel 06/22/22 06/23/22 Range/Units 14:43 06:21 Sodium 134 L 136 L (137-145) mmol/L Potassium 3.7 3.6 (3.5-5.1) mmol/L Chloride 99 101 (98-107) mmol/L Carbon Dioxide 22 24 (22-30) mmol/L BUN 14 14 (9-20) mg/dL Creatinine 0.85 0.95 (0.66-1.25) mg/dL Glucose 108 H 100 H (74-99) mg/dL Calcium 8.5 7.7 L (8.4-10.2) mg/dL AST 79 H 44 (17-59) U/L ALT 118 H 81 H (4-49) U/L Alkaline Phosphatase 85 61 (38-126) U/L Total Protein 6.8 5.5 L (6.3-8.2) g/dL Albumin 4.0 3.1 L (3.5-5.0) g/dL Current Medications Generic Name Dose Route Start Last Admin Trade Name Freq PRN Reason Stop Dose Admin Heparin Sodium (Porcine) 5,000 unit 06/22/22 21:00 06/23/22 08:15 Heparin Sodium,Porcine/Pf 5,000 Unit/0.5 Ml Syringe SQ Not Given Q12HR [facility] Hydromorphone HCl 1 mg 06/23/22 02:37 06/23/22 09:23 Hydromorphone 1 Mg/Ml 1 Ml Syringe IVP 1 mg Q1H PRN Administration Moderate Pain (Scale 4 to 6) Hydromorphone HCl 2 mg 06/23/22 02:37 Hydromorphone 1 Mg/Ml 1 Ml Syringe IVP Q4HR PRN Severe Pain (Scale 7 to 10) Sodium Chloride 1,000 mls @ 130 mls/hr 06/22/22 15:45 06/23/22 09:43 Saline 0.9% IV Not Given .Q7H42M [facility] Piperacillin Sod/Tazobactam 100 mls @ 25 mls/hr 06/23/22 02:30 06/23/22 08:14 Sod 3.375 gm/ Sodium Chloride IVPB 25 mls/hr Q6H [facility] Administration Protocol Acetaminophen 1,000 mg/ IV 100 mls @ 400 mls/hr 06/23/22 03:00 06/23/22 12:41 Solution IVPB 06/23/22 18:14 400 mls/hr Q6HR [facility] Administration Metronidazole 500 mg/ IV 100 mls @ 100 mls/hr 06/23/22 10:00 06/23/22 11:26 Solution IVPB 100 mls/hr Q6H [facility] Administration Protocol Ketorolac Tromethamine 15 mg 06/23/22 02:45 06/23/22 12:42 Ketorolac 15 Mg/Ml 1 Ml Vial IVP 06/26/22 02:37 15 mg Q6HR [facility] Administration Naloxone HCl 0.2 mg 06/22/22 15:42 Naloxone 0.4 Mg/Ml 1 Ml Vial IV Q2M PRN Opioid Reversal Ondansetron HCl 4 mg 06/23/22 03:13 Ondansetron 4 Mg/2 Ml Vial IVP Q6HR PRN Nausea And Vomiting Pantoprazole Sodium 40 mg 06/23/22 09:00 06/23/22 08:15 Pantoprazole 40 Mg/10 Ml Vial IV 40 mg DAILY [facility] Administration Simethicone 40 mg 06/23/22 01:00 06/23/22 01:46 Simethicone 80 Mg Chewable PO 40 mg QID PRN Administration Dyspepsia Intake and Output 06/22/22 06/23/22 06/23/22 22:59 06:59 14:59 Intake Total 3000 Balance 3000 Intake: Intake, IV Titration 2700 Amount ACETAMINOPHEN IV (For NPO 100 ) 1,000 mg In Empty Bag 1 bag @ 400 mls/hr IVPB Q6HR [facility] Rx#:[id number] Piperacillin-Tazobactam 3 100 .375 gm In Sodium Chloride 0.9% 100 ml @ 25 mls/hr IVPB Q6H [facility] Rx#: [id number] Sodium Chloride 0.9% 1, 1300 000 ml @ 130 mls/hr IV . Q7H42M [facility] Rx#:[id number] Sodium Chloride 0.9% 1, 1000 000 ml @ 999 mls/hr IV . Q1H1M [facility] Rx#:[id number] metroNIDAZOLE-NS PMX 500 200 mg In Saline 1 100ml.bag @ 100 mls/hr IVPB Q8H [facility] Rx#:[id number] Oral 300 Other: Voiding Method Toilet # Voids 6 # Bowel Movements 2 Weight 138.346 kg 138.346 kg Patient Weight 06/24/22 06:59 Weight 138.346 kg 06/23/22 06:21 06/23/22 06:21
[2022-06-23] MEDS: ONDANSETRON 4 MG/2 ML VIAL IVP PRN ×2 (17:49→23:36)
--- NOTE | 2022-06-23 21:16 | P.PN ---
Progress Note - Text Progress Note Date: 06/23/22 Patient reevaluated this evening. at bedside. Patient reports multiple bowel movements. He is passing moderate flatus. Abdominal pain controlled. He reports moderate improvement of abdominal pain since admission. Tolerating ice chips. Patient seen by multiple consultants including infectious disease, cardiology, he had placement of his PICC line for home IV antibiotics. No further fevers. EXAM: Nontoxic in appearance. Abdomen without peritonitis. Mild epigastrium pain and left lower quadrant. No rebound. Abdomen protuberant. Mild distention. ASSESSMENT: Overall, patient clinically stable and improving from perforated diverticulitis PLAN: Repeat labs in the morning. With clinical improvement, may start clear liquid diet in the morning. Otherwise, in presence of decline, diverting colostomy also described to patient and at the bedside.
[2022-06-23] MEDS: SIMETHICONE 40 MG/0.6 ML DROPS 2,000 MG/30 ML BOTTLE PO SCH (22:45)
--- NOTE | 2022-06-23 23:23 | P.CONS ---
History of Present Illness - Reason for Consult Consult date: 06/23/22 Diverticulitis failed outpatient antibiotics Requesting physician: Leanna Chavez - Chief Complaint Abdominal pain x few days - History of Present Illness Patient is a 41-year-old male started having a pain in the lower abdominal area about 3 days ago patient was describing the pain to be more sharp and involving the left lower abdominal area with intensity almost 10 out of 10 no radiation associated nausea but no vomiting and did have some constipation p atient was evaluated at [facility] ER on 06/21/2022 patient did have a CT suggestive of acute diverticulitis patient was sent home on oral Augmentin apparently the patient has taken about 3 doses however patient did have worsening of abdominal pain for the patient presented back to the hospital yesterday on arrival to the ER the patient did have fever 100.4 F at patient was tachycardic did have white count of 19.1 levels observed mildly elevated patient did have blood cultures drawn which are currently pending patient did have a CT of abdominal pelvis completed which shows pneumoperitoneum similar diverticulitis with fat stranding and extraluminal air bubbles significant increase in the peritoneal air compared to 2 days ago patient has been evaluated by surgery and initial pain was 4/2 this morning however the patient mention some improvement with antibiotic surgery was put on hold and infectious disease was consulted for further management of antibiotic therapy Review of Systems Positive point has been mentioned in the HPI rest of the systems are negative Past Medical History Past Medical History: No Reported History History of Any Multi-Drug Resistant Organisms: None Reported Past Surgical History: Cholecystectomy, Orthopedic Surgery Additional Past Surgical History / Comment(s): sinus Past Anesthesia/Blood Transfusion Reactions: No Reported Reaction Additional Past Anesthesia/Blood Transfusion Reaction / Comm: Nauea Past Psychological History: No Psychological Hx Reported Smoking Status: Never smoker Past Alcohol Use History: None Reported Past Drug Use History: None Reported Medications and Allergies Home Medications Medication Instructions Recorded Confirmed Type Omeprazole 20 mg PO DAILY 04/05/21 06/22/22 History Amoxic-Pot Clav 875-125Mg 1 tab PO Q12HR #20 tab 06/21/22 06/22/22 Rx [Augmentin 875-125] Ondansetron Odt [Zofran Odt] 4 mg PO Q8HR PRN #10 tab 06/21/22 06/22/22 Rx Testosterone Cypionate 200 mg IM Q14D 06/21/22 06/22/22 History [Depo-Testosterone] Allergies Allergy/AdvReac Type Severity Reaction Status Date / Time No Known Allergies Allergy Verified 06/22/22 16:06 Physical Exam Vitals: Vital Signs Temp Pulse Pulse Resp BP BP Pulse Ox 06/23/22 08:00 111 H 06/23/22 05:56 111 H 06/23/22 05:24 111 H 06/23/22 03:55 98.9 F 124 H 18 123/78 92 L 06/23/22 02:30 99.4 F 128 H 18 113/75 94 L 06/23/22 00:19 98.3 F 128 H 18 109/77 95 06/22/22 20:00 97 20 06/22/22 19:34 98.6 F 97 20 149/93 95 06/22/22 18:30 100.4 F H 70 18 120/68 98 06/22/22 14:31 100.4 F H 96 18 127/79 96 Intake and Output 06/22/22 06/23/22 06/23/22 22:59 06:59 14:59 Intake Total 3000 Balance 3000 Intake: Intake, IV Titration 2700 Amount ACETAMINOPHEN IV (For NPO 100 ) 1,000 mg In Empty Bag 1 bag @ 400 mls/hr IVPB Q6HR [facility] Rx#:[id number] Piperacillin-Tazobactam 3 100 .375 gm In Sodium Chloride 0.9% 100 ml @ 25 mls/hr IVPB Q6H [facility] Rx#: [id number] Sodium Chloride 0.9% 1, 1300 000 ml @ 130 mls/hr IV . Q7H42M [facility] Rx#:[id number] Sodium Chloride 0.9% 1, 1000 000 ml @ 999 mls/hr IV . Q1H1M [facility] Rx#:[id number] metroNIDAZOLE-NS PMX 500 200 mg In Saline 1 100ml.bag @ 100 mls/hr IVPB Q8H [facility] Rx#:[id number] Oral 300 Other: Voiding Method Toilet # Voids 6 # Bowel Movements 2 Weight 138.346 kg GENERAL DESCRIPTION: Middle-aged male lying in bed, no distress. No tachypnea or accessory muscle of respiration use. HEENT: Shows Pallor , no scleral icterus. Oral mucous membrane is dry. No pha ryngeal erythema or thrush NECK: Trachea central, no thyromegaly. LUNGS: Unlabored breathing. Clear to auscultation anteriorly. No wheeze or crackle. HEART: S1, S2, regular rate and rhythm. No loud murmur ABDOMEN: Soft, left lower quadrant tenderness EXTREMITIES: No edema of feet. SKIN: No rash, no masses palpable. NEUROLOGICAL: The patient is awake, alert, oriented x3, mood and affect normal. Results CBC & Chem 7: 06/24/22 06:48 06/24/22 06:48 Labs: Abnormal Lab Results - Last 24 Hours (Table) 06/22/22 06/22/22 06/23/22 Range/Units 14:43 14:43 06:21 WBC 19.1 H 16.4 H (3.8-10.6) k/uL Neutrophils # 17.1 H 14.9 H (1.3-7.7) k/uL Lymphocytes # 0.9 L 0.7 L (1.0-4.8) k/uL PT (9.0-12.0) sec INR (<1.2) Sodium 134 L (137-145) mmol/L Glucose 108 H (74-99) mg/dL Calcium (8.4-10.2) mg/dL Total Bilirubin 2.6 H (0.2-1.3) mg/dL AST 79 H (17-59) U/L ALT 118 H (4-49) U/L Total Protein (6.3-8.2) g/dL Albumin (3.5-5.0) g/dL 06/23/22 06/23/22 Range/Units 06:21 09:00 WBC (3.8-10.6) k/uL Neutrophils # (1.3-7.7) k/uL Lymphocytes # (1.0-4.8) k/uL PT 12.3 H (9.0-12.0) sec INR 1.2 H (<1.2) Sodium 136 L (137-145) mmol/L Glucose 100 H (74-99) mg/dL Calcium 7.7 L (8.4-10.2) mg/dL Total Bilirubin 1.8 H (0.2-1.3) mg/dL AST (17-59) U/L ALT 81 H (4-49) U/L Total Protein 5.5 L (6.3-8.2) g/dL Albumin 3.1 L (3.5-5.0) g/dL Assessment and Plan (1) Acute diverticulitis Current Visit: Yes Status: Acute Code(s): K57.92 - DVTRCLI OF INTEST, PART UNSP, W/O PERF OR ABSCESS W/O BLEED SNOMED Code(s): 688614441 (2) Failure of outpatient treatment Current Visit: Yes Status: Acute Code(s): Z78.9 - OTHER SPECIFIED HEALTH STATUS SNOMED Code(s): 022353702 Plan: 1patient presented to hospital with sepsis in this patient did have a fever tachycardia elevated white count source is acute complicated diverticulitis with perforation and will need to cover for the enteric gram-negative both aerobes and anaerobes. 2Zosyn 3.375 g every 8 hours should provide adequate antibiotic coverage. 3bowel rest and pain control. We will follow on clinical condition and cultures to further adjust medication if needed Thank you for this consultation will follow this patient along with you Time with Patient: Greater than 30
[2022-06-24] MEDS: PIPERACILLIN-TAZOBACTAM 3.375 GM in SODIUM CHLORIDE 0.9% 100 ML IVPB SCH ×4 (02:20→19:50)
[2022-06-24] MEDS: metroNIDAZOLE-NS PMX 500 MG in SALINE 1 100ML.BAG IVPB SCH ×4 (03:00→21:41)
[2022-06-24] MEDS: HYDROmorphone 1 MG/ML 1 ML SYRINGE IVP PRN ×8 (03:03→22:28)
[2022-06-24] MEDS: ACETAMINOPHEN IV (For NPO) 1,000 MG in EMPTY BAG 1 BAG IVPB SCH ×4 (04:09→23:13)
[2022-06-24] MEDS: KETOROLAC 15 MG/ML 1 ML VIAL IVP SCH ×4 (05:13→23:57)
[2022-06-24] MEDS: SODIUM CHLORIDE 0.9% 1,000 ML IV SCH ×3 (05:59→16:36)
[2022-06-24 07:36] LABS: Basophils % (A) 0 %; Eosinophils # (A) 0.1 k/uL (0-0.7); Eosinophils % (A) 0 %; HCT 40.8 % (39.0-53.0); HGB 13.2 gm/dL (13.0-17.5); Lymphocytes # (A) 0.5 k/uL (1.0-4.8); Lymphocytes % (A) 4 %; MCH 31.4 pg (25.0-35.0); MCHC 32.4 g/dL (31.0-37.0); MCV 96.9 fL (80.0-100.0); Mean Platelet Volume 8.3; Monocytes # (A) 0.6 k/uL (0-1.0); Monocytes % (A) 4 %; Neutrophils # (A) 13.5 k/uL (1.3-7.7); Neutrophils % (A) 91 %; Platelet Count 224 k/uL (150-450); RBC 4.21 m/uL (4.30-5.90); RDW 13.3 % (11.5-15.5); WBC 14.9 k/uL (3.8-10.6)
[2022-06-24 07:37] LABS: ALT 56 U/L (4-49); AST 29 U/L (17-59); African American GFR (CKD) >90 (>60 ml/min/1.73 sqM); Albumin 2.9 g/dL (3.5-5.0); Albumin/Globulin Ratio 1.3; Alkaline Phosphatase 63 U/L (38-126); Anion Gap 11 mmol/L; Blood Urea Nitrogen 15 mg/dL (9-20); Calcium 7.7 mg/dL (8.4-10.2); Carbon Dioxide 25 mmol/L (22-30); Chloride 104 mmol/L (98-107); Globulin 2.3 g/dL; Glucose 96 mg/dL (74-99); Non-African American GFR(CKD) >90 (>60 ml/min/1.73 sqM); Potassium 3.4 mmol/L (3.5-5.1); Sodium 140 mmol/L (137-145); Total Bilirubin 1.1 mg/dL (0.2-1.3); Total Protein 5.2 g/dL (6.3-8.2)
[2022-06-24] MEDS: PANTOPRAZOLE 40 MG/10 ML VIAL IV SCH (08:04)
[2022-06-24] MEDS: HEPARIN SODIUM,PORCINE/PF 5,000 UNIT/0.5 ML SYRINGE SQ SCH ×2 (08:04→19:48)
[2022-06-24] MEDS: SIMETHICONE 40 MG/0.6 ML DROPS 2,000 MG/30 ML BOTTLE PO SCH ×4 (08:05→21:43)
[2022-06-24] MEDS: ONDANSETRON 4 MG/2 ML VIAL IVP PRN ×3 (08:21→20:03)
--- NOTE | 2022-06-24 10:34 | P.PN ---
Subjective Progress Note Date: 06/24/22 Patient is a 41-year-old male with no significant past medical history presents the ED for abdominal pain. He was recently seen on 06/21/[address] abdomen and pelvis at that time demonstrated acute uncomplicated sigmoid colon diverticulitis and patient was discharged home on Augmentin. He presented back to the ED on 06/22/2022 for worsening abdominal pain. Patient reports abdominal pain ongoing for the past 3 days. Pain is generalized all over his abdomen. Pain is colicky in nature. Pain is 10 out of 10 in severity. Pain does not radiate. Pain is associated with nausea and vomiting along with chills. He denies any headache, lower extremity edema, cough, chest pain, shortness of breath, palpitations, changes in urination or bowel habits. Patient reports a decreased appetite. He denies any lightheadedness, numbness/weakness/tingling of the extremities. In the ER, he was tachycardic with heart rate of 96 and T-max of 100.4 Fahrenheit. Vital signs otherwise st able. CBC showed leukocytosis of 19.1 with neutrophilia. CMP showed sodium 134 glucose 108, total bilirubin of 2.6, AST of 79, ALT of 118. Patient is admitted for sepsis related to diverticulitis, failed outpatient therapy. 06/23 [employer] was called last night for worsening abdominal pain. CT abdomen and pelvis was repeated which showed pneumoperitoneum. Surgery was consulted and recommended conservative management, nothing by mouth, IV Tylenol and ibuprofen, IV antibiotics. Echocardiogram was done which showed EF of 55-60% with no regional wall motion abnormalities. CBC shows improving leukocytosis of 16.4. INR 1.2. Lactic acid negative. 06/24 Patient reports improvement in his abdominal pain. Had 2 bowel movements and is passing gas. Leukocytosis improved to 14.9. CMP shows K 3.4, Ca 7.7 and ALT 56. General: non toxic, no distress, appears at stated age Derm: warm, dry Head: atraumatic, normocephalic, symmetric Eyes: EOMI, no lid lag, anicteric sclera Mouth: no lip lesion, mucus membranes moist Cardiovascular: Tachycardic, no murmur Lungs: CTA bilateral, no rhonchi, no rales , no accessory muscle use Abdominal: soft, tenderness to palpation in all 4 quadrants without rebound tenderness, no guarding, no appreciable organomegaly Ext: no gross muscle atrophy, no edema, no contractures Neuro: no focal neuro deficits Psych: Alert, oriented, appropriate affect #Sepsis #Perforated sigmoid diverticulitis with pneumoperitoneum #Transaminitis #Morbid obesity Patient currently meets sepsis criteria with tachycardia, leukocytosis and a positive source of infection. CT AP positive for acute diverticulitis. Patient was started on Zosyn and Flagyl. Scheduled Tylenol and Toradol IV for pain management. Protonix 40 mg IV daily. Blood cultures are negative so far. La ctic acid negative. Patient be placed on telemetry monitoring. Normal saline at 130 mL per hour. Clear liquid diet and advance as tolerated. Surgery on board. Infectious disease consulted. Cardiology consulted for cardiac risk stratification. Patient reports history of cholecystectomy. Review of home medication shows that the patient is on testosterone supplementation. Patient will benefit from a structured weight loss program. DVT prophylaxis: Heparin Discussed with: Patient Anticipated discharge: 2-[address]: Home Patient names his decision maker if he can't make decisions for himself. Patient would like to be full code. Patient will need long-term IV antibiotics on discharge. Objective - Vital Signs Vital signs: Vital Signs Temp 98.9 F 06/24/22 05:00 Pulse 90 06/24/22 09:07 Resp 15 06/24/22 05:00 BP 142/67 06/24/22 09:07 Pulse Ox 93 L 06/24/22 05:00 FiO2 Intake & Output 06/23/22 06/24/22 06/24/22 18:59 06:59 18:59 Intake Total 2059 1999 Balance 2059 1999 Weight 138.346 kg Intake: Intake, IV Titration 2059 1999 Amount ACETAMINOPHEN IV (For NPO 200 ) 1,000 mg In Empty Bag 1 bag @ 400 mls/hr IVPB Q6H [facility] Rx#:[id number] ACETAMINOPHEN IV (For NPO 100 ) 1,000 mg In Empty Bag 1 bag @ 400 mls/hr IVPB Q6HR [facility] Rx#:[id number] Piperacillin-Tazobactam 3 200 200 .375 gm In Sodium Chloride 0.9% 100 ml @ 25 mls/hr IVPB Q6H [facility] Rx#: [id number] Sodium Chloride 0.9% 1, 1560 1400 000 ml @ 130 mls/hr IV . Q7H42M [facility] Rx#:[id number] metroNIDAZOLE-NS PMX 500 200 200 mg In Saline 1 100ml.bag @ 100 mls/hr IVPB Q6H [facility] Rx#:[id number] Other: Voiding Method Toilet # Voids 4 2 # Bowel Movements 4 2 - Labs CBC & Chem 7: 06/24/22 06:48 06/24/22 06:48 Labs: Abnormal Lab Results - Last 24 Hours (Table) 06/24/22 06/24/22 Range/Units 06:48 06:48 WBC 14.9 H (3.8-10.6) k/uL RBC 4.21 L (4.30-5.90) m/uL Neutrophils # 13.5 H (1.3-7.7) k/uL Lymphocytes # 0.5 L (1.0-4.8) k/uL Potassium 3.4 L (3.5-5.1) mmol/L Calcium 7.7 L (8.4-10.2) mg/dL ALT 56 H (4-49) U/L Total Protein 5.2 L (6.3-8.2) g/dL Albumin 2.9 L (3.5-5.0) g/dL Microbiology - Last 24 Hours (Table) 06/22/22 14:43 Blood Culture - Preliminary Blood No Growth after 24 hours 06/22/22 14:43 Blood Culture - Preliminary Blood No Growth after 24 hours
--- NOTE | 2022-06-24 15:50 | P.PN ---
Subjective Progress Note Date: 06/24/22 Principal diagnosis: Acute complicated diverticulitis Patient is a 41-year-old male presented to the hospital with abdominal pain with a recent diagnosis of diverticulitis failing outpatient oral Augmentin therapy with repeat CAT scan shows perforation. on today's evaluation that is 06/24/2022, the patient denies having any fever or any chills, the patient abdominal pain has slightly decreased in intensity the patient denies any nausea and vomiting he did have some loose stool denies any chest pain shortness of breath or cough Objective - Vital Signs Vital signs: Vital Signs Temp 98.3 F 06/24/22 12:41 Pulse 103 H 06/24/22 12:41 Resp 16 06/24/22 12:41 BP 132/86 06/24/22 12:41 Pulse Ox 93 L 06/24/22 12:41 FiO2 Intake & Output 06/23/22 06/24/22 06/24/22 18:59 06:59 18:59 Intake Total 2059 1999 Balance 2059 1999 Weight 138.346 kg Intake: Intake, IV Titration 2059 1999 Amount ACETAMINOPHEN IV (For NPO 200 ) 1,000 mg In Empty Bag 1 bag @ 400 mls/hr IVPB Q6H [facility] Rx#:[id number] ACETAMINOPHEN IV (For NPO 100 ) 1,000 mg In Empty Bag 1 bag @ 400 mls/hr IVPB Q6HR [facility] Rx#:[id number] Piperacillin-Tazobactam 3 200 200 .375 gm In Sodium Chloride 0.9% 100 ml @ 25 mls/hr IVPB Q6H [facility] Rx#: [id number] Sodium Chloride 0.9% 1, 1560 1400 000 ml @ 130 mls/hr IV . Q7H42M [facility] Rx#:[id number] metroNIDAZOLE-NS PMX 500 200 200 mg In Saline 1 100ml.bag @ 100 mls/hr IVPB Q6H [facility] Rx#:[id number] Other: Voiding Method Toilet Toilet # Voids 4 2 # Bowel Movements 4 2 - Exam GENERAL DESCRIPTION: Middle-aged male lying in bed in no distress RESPIRATORY SYSTEM: Unlabored breathing , decreased breath sounds at bases HEART: S1 S2 regular rate and rhythm , ABDOMEN: Soft , mild distention and tenderness EXTREMITIES: No edema feet - Labs CBC & Chem 7: 06/24/22 06:48 06/24/22 06:48 Labs: Abnormal Lab Results - Last 24 Hours (Table) 06/24/22 06/24/22 Range/Units 06:48 06:48 WBC 14.9 H (3.8-10.6) k/uL RBC 4.21 L (4.30-5.90) m/uL Neutrophils # 13.5 H (1.3-7.7) k/uL Lymphocytes # 0.5 L (1.0-4.8) k/uL Potassium 3.4 L (3.5-5.1) mmol/L Calcium 7.7 L (8.4-10.2) mg/dL ALT 56 H (4-49) U/L Total Protein 5.2 L (6.3-8.2) g/dL Albumin 2.9 L (3.5-5.0) g/dL Microbiology - Last 24 Hours (Table) 06/22/22 14:43 Blood Culture - Preliminary Blood No Growth after 24 hours 06/22/22 14:43 Blood Culture - Preliminary Blood No Growth after 24 hours Assessment and Plan (1) Acute diverticulitis Current Visit: Yes Status: Acute Code(s): K57.92 - DVTRCLI OF INTEST, PART UNSP, W/O PERF OR ABSCESS W/O BLEED SNOMED Code(s): 848249417 (2) Perforated diverticulum Current Visit: Yes Status: Acute Code(s): K57.80 - DVTRCLI OF INTEST, PART UNSP, W PERF AND ABSCESS W/O BLEED SNOMED Code(s): 48167295 Plan: 1patient presented to hospital with sepsis in this patient did have a fever tachycardia elevated white count source is acute complicated diverticulitis with perforation and will need to cover for the enteric gram-negative both aerobes and anaerobes. 2patient seemed to have shown some improvement and will continue Zosyn 3.375 g every 8 hours along with bowel rest and pain control. Time with Patient: Less than 30
--- NOTE | 2022-06-24 16:58 | P.PN ---
Subjective Progress Note Date: 06/24/22 CHIEF COMPLAINT: Perforated diverticulitis HISTORY OF PRESENT ILLNESS: The patient is a 41 year old male who presented to the hospital with perforated diverticulitis. Patient reports improved abdominal pain today compared to yesterday. He has been started on a liquid diet per hospitalist. No reports of fevers. No chills. He is passing flatus and having bowel movements. REVIEW OF ORGAN SYSTEMS: CONSTITUTIONAL: No current fevers or chills. Has morbid obesity, BMI 42.5 GASTROINTESTINAL: Denies fatty food intolerance. As above, having flatus and bowel movements. MUSCULOSKELETAL: Has back pain, stiffness or joint arthritis. PHYSICAL EXAM: VITALS: Reviewed CONSTITUTIONAL: Well developed and in no acute distress. EYES: Conjuctivae without sclera icterus. Extraocular movements grossly i ntact. HEAD, EARS, NOSE, THROAT: Moist buccal mucosa. Head is atraumatic, normocephalic. Hears conversational speech. No nasal drainage. RESPIRATORY: Non-labored respirations and equal bilateral excursions. Oxygen saturation less than 95%. CARDIOVASCULAR: Palpable 2+ radial pulses. ABDOMEN: Obese, protuberant. No rebound or guarding or rigidity or peritonitis. Tenderness left lower quadrant moderately improved. MUSCULOSKELETAL: No clubbing cyanosis or edema. SKIN: Warm and well perfused with good skin turgor. NEUROLOGIC: Cranial nerves II through XII grossly intact. No focal or lat eralizing signs. PSYCH: Appropriate affect. Alert and oriented to person, place and time. Displays appropriate insight. CLINCAL LABS: Reviewed. WBC elevated at 19.1 now 16.1, down to 14.9. LFTs trending downward. ASSESSMENT: 1. Perforated sigmoid diverticulitis with pneumoperitoneum 2. Morbid obesity due to excess calories, BMI 42.5 3. Leukocytosis with fevers, sepsis 4. Elevated liver enzymes PLAN: 1. I reviewed with the patient his clinical course. He reports improvement of his symptoms and wishes to defer surgical intervention. 2. Continue IV antibiotics. Antibiotic management per infectious disease. 3. Cautious advancement of diet pending clinical improvement. 4. Recommend Raul for nutritional supplement and recovery 5. Patient notified that I will be out of town for [address] Diogo membreno. 6. Pulmonary toilet with incentive spirometer advised and reviewed with his nurse. Objective - Vital Signs Vital signs: Vital Signs Temp 98.3 F 06/24/22 12:41 Pulse 103 H 06/24/22 12:41 Resp 16 06/24/22 12:41 BP 132/86 06/24/22 12:41 Pulse Ox 93 L 06/24/22 12:41 FiO2 Intake & Output 06/23/22 06/24/22 06/24/22 18:59 06:59 18:59 Intake Total 2059 1999 Balance 2059 1999 Weight 138.346 kg Intake: Intake, IV Titration 2059 1999 Amount ACETAMINOPHEN IV (For NPO 200 ) 1,000 mg In Empty Bag 1 bag @ 400 mls/hr IVPB Q6H [facility] Rx#:[id number] ACETAMINOPHEN IV (For NPO 100 ) 1,000 mg In Empty Bag 1 bag @ 400 mls/hr IVPB Q6HR [facility] Rx#:[id number] Piperacillin-Tazobactam 3 200 200 .375 gm In Sodium Chloride 0.9% 100 ml @ 25 mls/hr IVPB Q6H [facility] Rx#: [id number] Sodium Chloride 0.9% 1, 1560 1400 000 ml @ 130 mls/hr IV . Q7H42M [facility] Rx#:[id number] metroNIDAZOLE-NS PMX 500 200 200 mg In Saline 1 100ml.bag @ 100 mls/hr IVPB Q6H [facility] Rx#:[id number] Other: Voiding Method Toilet Toilet # Voids 4 2 # Bowel Movements 4 2 - Labs CBC & Chem 7: 06/24/22 06:48 06/24/22 06:48 Labs: Abnormal Lab Results - Last 24 Hours (Table) 06/24/22 06/24/22 Range/Units 06:48 06:48 WBC 14.9 H (3.8-10.6) k/uL RBC 4.21 L (4.30-5.90) m/uL Neutrophils # 13.5 H (1.3-7.7) k/uL Lymphocytes # 0.5 L (1.0-4.8) k/uL Potassium 3.4 L (3.5-5.1) mmol/L Calcium 7.7 L (8.4-10.2) mg/dL ALT 56 H (4-49) U/L Total Protein 5.2 L (6.3-8.2) g/dL Albumin 2.9 L (3.5-5.0) g/dL Microbiology - Last 24 Hours (Table) 06/22/22 14:43 Blood Culture - Preliminary Blood No Growth after 24 hours 06/22/22 14:43 Blood Culture - Preliminary Blood No Growth after 24 hours
[2022-06-25] MEDS: HYDROmorphone 1 MG/ML 1 ML SYRINGE IVP PRN ×10 (00:14→23:44)
[2022-06-25] MEDS: PIPERACILLIN-TAZOBACTAM 3.375 GM in SODIUM CHLORIDE 0.9% 100 ML IVPB SCH ×4 (03:05→21:13)
[2022-06-25] MEDS: metroNIDAZOLE-NS PMX 500 MG in SALINE 1 100ML.BAG IVPB SCH ×4 (03:06→21:14)
[2022-06-25] MEDS: ACETAMINOPHEN IV (For NPO) 1,000 MG in EMPTY BAG 1 BAG IVPB SCH ×3 (05:00→17:39)
[2022-06-25] MEDS: SODIUM CHLORIDE 0.9% 1,000 ML IV SCH ×2 (05:05→13:20)
[2022-06-25] MEDS: KETOROLAC 15 MG/ML 1 ML VIAL IVP SCH ×4 (05:50→23:36)
[2022-06-25] MEDS: HEPARIN SODIUM,PORCINE/PF 5,000 UNIT/0.5 ML SYRINGE SQ SCH ×2 (08:21→21:14)
[2022-06-25] MEDS: PANTOPRAZOLE 40 MG/10 ML VIAL IV SCH (08:22)
[2022-06-25] MEDS: SIMETHICONE 40 MG/0.6 ML DROPS 2,000 MG/30 ML BOTTLE PO SCH ×4 (08:23→21:17)
[2022-06-25] MEDS: ONDANSETRON 4 MG/2 ML VIAL IVP PRN ×3 (08:29→21:09)
--- NOTE | 2022-06-25 10:37 | P.PN ---
Subjective Progress Note Date: 06/25/22 Patient is a 41-year-old male with no significant past medical history presents the ED for abdominal pain. He was recently seen on 06/21/[address] abdomen and pelvis at that time demonstrated acute uncomplicated sigmoid colon diverticulitis and patient was discharged home on Augmentin. He presented back to the ED on 06/22/2022 for worsening abdominal pain. Patient reports abdominal pain ongoing for the past 3 days. Pain is generalized all over his abdomen. Pain is colicky in nature. Pain is 10 out of 10 in severity. Pain does not radiate. Pain is associated with nausea and vomiting along with chills. He denies any headache, lower extremity edema, cough, chest pain, shortness of breath, palpitations, changes in urination or bowel habits. Patient reports a decreased appetite. He denies any lightheadedness, numbness/weakness/tingling of the extremities. In the ER, he was tachycardic with heart rate of 96 and T-max of 100.4 Fahrenheit. Vital signs otherwise st able. CBC showed leukocytosis of 19.1 with neutrophilia. CMP showed sodium 134 glucose 108, total bilirubin of 2.6, AST of 79, ALT of 118. Patient is admitted for sepsis related to diverticulitis, failed outpatient therapy. 06/23 Table Tender was called last night for worsening abdominal pain. CT abdomen and pelvis was repeated which showed pneumoperitoneum. Surgery was consulted and recommended conservative management, nothing by mouth, IV Tylenol and ibuprofen, IV antibiotics. Echocardiogram was done which showed EF of 55-60% with no regional wall motion abnormalities. CBC shows improving leukocytosis of 16.4. INR 1.2. Lactic acid negative. 06/24 Patient reports improvement in his abdominal pain. Had 2 bowel movements and is passing gas. Leukocytosis improved to 14.9. CMP shows K 3.4, Ca 7.7 and ALT 56. 06/25 Patient reports continued improvement in his abdominal pain. One episode of nausea and vomiting. Continuing to have bowel movements. CBC and BMP pending at the time of this note. General: non toxic, no distress, appears at stated age Derm: warm, dry Head: atraumatic, normocephalic, symmetric Eyes: EOMI, no lid lag, anicteric sclera Mouth: no lip lesion, mucus membranes moist Cardiovascular: Tachycardic, no murmur Lungs: CTA bilateral, no rhonchi, no rales , no accessory muscle use Abdominal: soft, tenderness to palpation in all 4 quadrants without rebound tenderness, no guarding, no appreciable organomegaly Ext: no gross muscle atrophy, no edema, no contractures Neuro: no focal neuro deficits Psych: Alert, oriented, appropriate affect #Sepsis #Perforated sigmoid diverticulitis with pneumoperitoneum #Transaminitis #Morbid obesity Patient currently meets sepsis criteria with tachycardia, leukocytosis and a positive source of infection. CT AP positive for acute diverticulitis. Patient was started on Zosyn and Flagyl. Scheduled Tylenol and Toradol IV for pain management. Protonix 40 mg IV daily. Blood cultures are negative so far. Lactic acid negative. Patient be placed on telemetry monitoring. Normal saline at 130 mL per hour. Clear liquid diet and advance as tolerated. Surgery on board. Infectious disease consulted. Cardiology consulted for cardiac risk stratification. Patient reports history of cholecystectomy. Review of home medication shows that the patient is on testosterone supplementation. Patient will benefit from a structured weight loss program. DVT prophylaxis: Heparin Discussed with: Patient Anticipated discharge: 2-[address]: Home Patient names his decision maker if he can't make decisions for himself. Patient would like to be full code. Patient will need long-term IV antibiotics on discharge. Objective - Vital Signs Vital signs: Vital Signs Temp 98.7 F 06/25/22 05:00 Pulse 90 06/25/22 08:37 Resp 18 06/25/22 08:00 BP 141/69 06/25/22 08:37 Pulse Ox 95 06/25/22 05:00 FiO2 Intake & Output 06/24/22 06/25/22 06/25/22 18:59 06:59 18:59 Intake Total 2140 Balance 2140 Intake: Intake, IV Titration 1900 Amount ACETAMINOPHEN IV (For NPO 200 ) 1,000 mg In Empty Bag 1 bag @ 400 mls/hr IVPB Q6H [facility] Rx#:[id number] Piperacillin-Tazobactam 3 200 .375 gm In Sodium Chloride 0.9% 100 ml @ 25 mls/hr IVPB Q6H [facility] Rx#: [id number] Sodium Chloride 0.9% 1, 1400 000 ml @ 130 mls/hr IV . Q7H42M [facility] Rx#:[id number] metroNIDAZOLE-NS PMX 500 100 mg In Saline 1 100ml.bag @ 100 mls/hr IVPB Q6H [facility] Rx#:[id number] Oral 240 Other: Voiding Method Toilet Toilet Toilet # Voids 5 # Bowel Movements 1 - Labs CBC & Chem 7: 06/24/22 06:48 06/24/22 06:48 Labs: Microbiology - Last 24 Hours (Table) 06/22/22 14:43 Blood Culture - Preliminary Blood No Growth after 48 hours 06/22/22 14:43 Blood Culture - Preliminary Blood No Growth after 48 hours
--- NOTE | 2022-06-25 11:33 | P.PN ---
Subjective Progress Note Date: 06/25/22 Principal diagnosis: Diverticulitis 41-year-old male with perforated diverticulitis. Patient says he is gradually improving daily. Still having some abdominal pain and bloating but is better. He is tolerating clear liquids. No nausea or vomiting. No labs From today. He is afebrile with no tachycardia currently. He is passing small volume of stool at times. Objective - Vital Signs Vital signs: Vital Signs Temp 98.7 F 06/25/22 05:00 Pulse 90 06/25/22 08:37 Resp 18 06/25/22 08:00 BP 141/69 06/25/22 08:37 Pulse Ox 95 06/25/22 05:00 FiO2 Intake & Output 06/24/22 06/25/22 06/25/22 18:59 06:59 18:59 Intake Total 2140 Balance 2140 Intake: Intake, IV Titration 1900 Amount ACETAMINOPHEN IV (For NPO 200 ) 1,000 mg In Empty Bag 1 bag @ 400 mls/hr IVPB Q6H [facility] Rx#:[id number] Piperacillin-Tazobactam 3 200 .375 gm In Sodium Chloride 0.9% 100 ml @ 25 mls/hr IVPB Q6H [facility] Rx#: [id number] Sodium Chloride 0.9% 1, 1400 000 ml @ 130 mls/hr IV . Q7H42M [facility] Rx#:[id number] metroNIDAZOLE-NS PMX 500 100 mg In Saline 1 100ml.bag @ 100 mls/hr IVPB Q6H [facility] Rx#:[id number] Oral 240 Other: Voiding Method Toilet Toilet Toilet # Voids 5 # Bowel Movements 1 - Exam Abdomen: Soft, mild distention, mild diffuse tenderness, no rebound or guarding - Labs CBC & Chem 7: 06/24/22 06:48 06/24/22 06:48 Labs: Microbiology - Last 24 Hours (Table) 06/22/22 14:43 Blood Culture - Preliminary Blood No Growth after 48 hours 06/22/22 14:43 Blood Culture - Preliminary Blood No Growth after 48 hours Assessment and Plan (1) Acute diverticulitis Narrative/Plan: 41-year-old male with acute diverticulitis. So far patient continues to improve with conservative management. Patient high risk for failure however. Continue clear liquids. Recheck labs tomorrow. Ambulate. We'll follow closely. Current Visit: Yes Status: Acute Code(s): K57.92 - DVTRCLI OF INTEST, PART UNSP, W/O PERF OR ABSCESS W/O BLEED SNOMED Code(s): 833601581
[2022-06-25 11:44] LABS: Basophils # (A) 0.04 X 10*3/uL (0.00-0.10); Basophils % (A) 0.3 %; Eosinophils # (A) 0.19 X 10*3/uL (0.04-0.35); Eosinophils % (A) 1.3 %; HCT 36.1 % (39.6-50.0); HGB 11.9 g/dL (13.0-17.0); Immature Grans, Automated 0.4 %; Lymphocytes # (A) 0.65 X 10*3/uL (0.90-5.00); Lymphocytes % (A) 4.5 %; MCH 30.4 pg (27.0-32.0); MCV 92.3 fL (80.0-97.0); Mean Platelet Volume 10.4 fL (9.5-12.2); Monocytes # (A) 0.96 X 10*3/uL (0.20-1.00); Monocytes % (A) 6.6 %; NRBC Per 100 WBC 0 /100 WBCS (0.0-0.0); Neutrophils % (A) 86.9 %; Platelet Count 239 X 10*3/uL (140-440); RBC 3.91 X 10*6/uL (4.40-5.60); RDW 13.3 % (11.5-14.5)
[2022-06-25 11:49] LABS: African American GFR (CKD) 121.7 (60.0-200.0); Albumin 3.1 g/dL (3.8-4.9); Albumin/Globulin Ratio 1.48 (1.60-3.17); BUN/Creat Ratio 15.67 Ratio (12.00-20.00); Blood Urea Nitrogen 14.1 mg/dL (9.0-27.0); Calcium 8.2 mg/dL (8.7-10.3); Globulin 2.1 g/dL (1.6-3.3); Potassium 3.3 mmol/L (3.5-5.5); Total Bilirubin 0.7 mg/dL (0.30-1.20); Total Protein 5.2 g/dL (6.2-8.2)
[2022-06-25] MEDS ORDERED: POTASSIUM CHLORIDE 20 MEQ in WATER FOR INJECTION 1 100ML.BAG IVPB STA (12:24)
[2022-06-26] MEDS: HYDROmorphone 1 MG/ML 1 ML SYRINGE IVP PRN ×9 (02:27→23:45)
[2022-06-26] MEDS: PIPERACILLIN-TAZOBACTAM 3.375 GM in SODIUM CHLORIDE 0.9% 100 ML IVPB SCH ×4 (02:28→20:07)
[2022-06-26] MEDS: SODIUM CHLORIDE 0.9% 1,000 ML IV SCH ×2 (03:32→19:21)
[2022-06-26] MEDS: ONDANSETRON 4 MG/2 ML VIAL IVP PRN ×2 (03:52→10:37)
[2022-06-26] MEDS: metroNIDAZOLE-NS PMX 500 MG in SALINE 1 100ML.BAG IVPB SCH ×4 (03:54→22:14)
[2022-06-26] MEDS: SIMETHICONE 40 MG/0.6 ML DROPS 2,000 MG/30 ML BOTTLE PO SCH ×4 (06:14→22:14)
[2022-06-26 08:05] LABS: African American GFR (CKD) >90 (>60 ml/min/1.73 sqM); Anion Gap 9 mmol/L; Blood Urea Nitrogen 14 mg/dL (9-20); Carbon Dioxide 29 mmol/L (22-30); Chloride 99 mmol/L (98-107); Glucose 106 mg/dL (74-99); Non-African American GFR(CKD) >90 (>60 ml/min/1.73 sqM); Potassium 3.2 mmol/L (3.5-5.1); Sodium 137 mmol/L (137-145)
[2022-06-26] MEDS: PANTOPRAZOLE 40 MG/10 ML VIAL IV SCH (08:12)
[2022-06-26] MEDS: HEPARIN SODIUM,PORCINE/PF 5,000 UNIT/0.5 ML SYRINGE SQ SCH ×2 (08:20→20:08)
[2022-06-26] MEDS ORDERED: Potassium Replacement Protocol 1 EACH MISC MISCELLANE PRN (08:53)
[2022-06-26 09:13] LABS: Basophils # (A) 0.05 X 10*3/uL (0.00-0.10); Basophils % (A) 0.4 %; Eosinophils # (A) 0.34 X 10*3/uL (0.04-0.35); Eosinophils % (A) 2.7 %; HCT 36.1 % (39.6-50.0); HGB 12.1 g/dL (13.0-17.0); Lymphocytes # (A) 0.99 X 10*3/uL (0.90-5.00); Lymphocytes % (A) 7.8 %; MCH 30.8 pg (27.0-32.0); MCHC 33.5 g/dL (32.0-37.0); MCV 91.9 fL (80.0-97.0); Mean Platelet Volume 10.3 fL (9.5-12.2); Monocytes # (A) 0.88 X 10*3/uL (0.20-1.00); Monocytes % (A) 6.9 %; NRBC Per 100 WBC 0 /100 WBCS (0.0-0.0); Neutrophils % (A) 81.2 %; Platelet Count 255 X 10*3/uL (140-440); RBC 3.93 X 10*6/uL (4.40-5.60); RDW 13.2 % (11.5-14.5); WBC 12.69 X 10*3/uL (4.50-10.00)
--- NOTE | 2022-06-26 09:48 | P.PN ---
Subjective Progress Note Date: 06/26/22 Patient is a 41-year-old male with no significant past medical history presents the ED for abdominal pain. He was recently seen on 06/21/[address] abdomen and pelvis at that time demonstrated acute uncomplicated sigmoid colon diverticulitis and patient was discharged home on Augmentin. He presented back to the ED on 06/22/2022 for worsening abdominal pain. Patient reports abdominal pain ongoing for the past 3 days. Pain is generalized all over his abdomen. Pain is colicky in nature. Pain is 10 out of 10 in severity. Pain does not radiate. Pain is associated with nausea and vomiting along with chills. He denies any headache, lower extremity edema, cough, chest pain, shortness of breath, palpitations, changes in urination or bowel habits. Patient reports a decreased appetite. He denies any lightheadedness, numbness/weakness/tingling of the extremities. In the ER, he was tachycardic with heart rate of 96 and T-max of 100.4 Fahrenheit. Vital signs otherwise st able. CBC showed leukocytosis of 19.1 with neutrophilia. CMP showed sodium 134 glucose 108, total bilirubin of 2.6, AST of 79, ALT of 118. Patient is admitted for sepsis related to diverticulitis, failed outpatient therapy. 06/23 [facility] was called last night for worsening abdominal pain. CT abdomen and pelvis was repeated which showed pneumoperitoneum. Surgery was consulted and recommended conservative management, nothing by mouth, IV Tylenol and ibuprofen, IV antibiotics. Echocardiogram was done which showed EF of 55-60% with no regional wall motion abnormalities. CBC shows improving leukocytosis of 16.4. INR 1.2. Lactic acid negative. 06/24 Patient reports improvement in his abdominal pain. Had 2 bowel movements and is passing gas. Leukocytosis improved to 14.9. CMP shows K 3.4, Ca 7.7 and ALT 56. 06/25 Patient reports continued improvement in his abdominal pain. One episode of nausea and vomiting. Continuing to have bowel movements. CBC and BMP pending at the time of this note. 06/26 Patient reports no changes in his abdominal pain. States that Toradol worked better than Dilaudid. No nausea and vomiting today. Leukocytosis improved to 12.69. Hemoglobin 12.1. BMP shows potassium of 3.2 and calcium of 8. General: non toxic, no distress, appears at stated age Derm: warm, dry Head: atraumatic, normocephalic, symmetric Eyes: EOMI, no lid lag, anicteric sclera Mouth: no lip lesion, mucus membranes moist Cardiovascular: Tachycardic, no murmur Lungs: CTA bilateral, no rhonchi, no rales , no accessory muscle use Abdominal: soft, tenderness to palpation in all 4 quadrants without rebound tenderness, no guarding, no appreciable organomegaly Ext: no gross muscle atrophy, no edema, no contractures Neuro: no focal neuro deficits Psych: Alert, oriented, appropriate affect #Sepsis #Perforated sigmoid diverticulitis with pneumoperitoneum #Hypokalemia #Transaminitis #Morbid obesity Patient currently meets sepsis criteria with tachycardia, leukocytosis and a po sitive source of infection. CT AP positive for acute diverticulitis. Patient is continued on Zosyn and Flagyl. Scheduled Tylenol and Toradol IV, Dilaudid IV as needed for pain management. Protonix 40 mg IV daily. Blood cultures are negative so far. Lactic acid negative. Patient be placed on telemetry monitoring. IVF decreased to normal saline at 75 mL per hour. Clear liquid diet and advance as tolerated. Surgery on board. Infectious disease consulted. Cardiology consulted for cardiac risk stratification. Replace potassium via protocol. Repeat BMP tomorrow morning. Patient reports history of cholecystectomy. Review of home medication shows that the patient is on testosterone supplementation. Patient will benefit from a structured weight loss program. DVT prophylaxis: Heparin Discussed with: Patient Anticipated discharge: 2-[address]: Home Patient names his decision maker if he can't make decisions for himself. Patient would like to be full code. Patient will need long-term IV antibiotics on discharge. Objective - Vital Signs Vital signs: Vital Signs Temp 99.1 F 06/26/22 04:04 Pulse 91 06/26/22 04:04 Resp 20 06/26/22 04:04 BP 176/77 06/26/22 04:04 Pulse Ox 95 06/26/22 04:04 FiO2 Intake & Output 06/25/22 06/26/22 06/26/22 18:59 06:59 18:59 Intake Total 660 500 Output Total 4 Balance 656 500 Intake: Intake, IV Titration 300 Amount Piperacillin-Tazobactam 3 100 .375 gm In Sodium Chloride 0.9% 100 ml @ 25 mls/hr IVPB Q6H [facility] Rx#: [id number] Potassium Chloride 20 meq 100 In Water For Injection 1 100ml.bag @ 50 mls/hr IVPB [facility] Rx#: [id number] metroNIDAZOLE-NS PMX 500 100 mg In Saline 1 100ml.bag @ 100 mls/hr IVPB Q6H [facility] Rx#:[id number] Oral 360 500 Output: Urine 4 Other: Voiding Method Toilet Toilet # Voids 2 # Bowel Movements 2 - Labs CBC & Chem 7: 06/26/22 05:16 06/26/22 05:16 Labs: Abnormal Lab Results - Last 24 Hours (Table) 06/25/22 06/25/22 06/26/22 Range/Units 06:54 06:54 05:16 WBC 14.50 H 12.69 H (4.50-10.00) X 10*3/uL RBC 3.91 L 3.93 L (4.40-5.60) X 10*6/uL Hgb 11.9 L 12.1 L (13.0-17.0) g/dL Hct 36.1 L 36.1 L (39.6-50.0) % Immature Gran # 0.06 H 0.13 H (0.00-0.04) X 10*3/uL Neutrophils # 12.60 H 10.30 H (1.80-7.70) X 10*3/uL Lymphocytes # 0.65 L (0.90-5.00) X 10*3/uL Potassium 3.3 L (3.5-5.5) mmol/L Glucose (74-99) mg/dL Calcium 8.2 L (8.7-10.3) mg/dL Total Protein 5.2 L (6.2-8.2) g/dL Albumin 3.1 L (3.8-4.9) g/dL Albumin/Globulin Ratio 1.48 L (1.60-3.17) g/dL 06/26/22 Range/Units 05:16 WBC (4.50-10.00) X 10*3/uL RBC (4.40-5.60) X 10*6/uL Hgb (13.0-17.0) g/dL Hct (39.6-50.0) % Immature Gran # (0.00-0.04) X 10*3/uL Neutrophils # (1.80-7.70) X 10*3/uL Lymphocytes # (0.90-5.00) X 10*3/uL Potassium 3.2 L (3.5-5.5) mmol/L Glucose 106 H (74-99) mg/dL Calcium 8.0 L (8.7-10.3) mg/dL Total Protein (6.2-8.2) g/dL Albumin (3.8-4.9) g/dL Albumin/Globulin Ratio (1.60-3.17) g/dL Microbiology - Last 24 Hours (Table) 06/22/22 14:43 Blood Culture - Preliminary Blood No Growth after 72 hours 06/22/22 14:43 Blood Culture - Preliminary Blood No Growth after 72 hours
--- NOTE | 2022-06-26 09:53 | P.PN ---
Subjective Progress Note Date: 06/26/22 Principal diagnosis: Diverticulitis Patient says he feels better today. He did have slight increased discomfort when the Toradol was discontinued but that has been restarted. T-max 99.1. White blood cell count down to 12.6. His passing flatus. Small stools. Tolerating clear liquids. Objective - Vital Signs Vital signs: Vital Signs Temp 99.1 F 06/26/22 04:04 Pulse 91 06/26/22 04:04 Resp 20 06/26/22 04:04 BP 176/77 06/26/22 04:04 Pulse Ox 95 06/26/22 04:04 FiO2 Intake & Output 06/25/22 06/26/22 06/26/22 18:59 06:59 18:59 Intake Total 660 500 Output Total 4 Balance 656 500 Intake: Intake, IV Titration 300 Amount Piperacillin-Tazobactam 3 100 .375 gm In Sodium Chloride 0.9% 100 ml @ 25 mls/hr IVPB Q6H [facility] Rx#: [id number] Potassium Chloride 20 meq 100 In Water For Injection 1 100ml.bag @ 50 mls/hr IVPB [facility] Rx#: [id number] metroNIDAZOLE-NS PMX 500 100 mg In Saline 1 100ml.bag @ 100 mls/hr IVPB Q6H [facility] Rx#:[id number] Oral 360 500 Output: Urine 4 Other: Voiding Method Toilet Toilet # Voids 2 # Bowel Movements 2 - Exam Abdomen: Soft, mild distention, mild diffuse tenderness increased lower quadrants, no rebound or guarding - Labs CBC & Chem 7: 06/26/22 05:16 06/26/22 05:16 Labs: Abnormal Lab Results - Last 24 Hours (Table) 06/25/22 06/25/22 06/26/22 Range/Units 06:54 06:54 05:16 WBC 14.50 H 12.69 H (4.50-10.00) X 10*3/uL RBC 3.91 L 3.93 L (4.40-5.60) X 10*6/uL Hgb 11.9 L 12.1 L (13.0-17.0) g/dL Hct 36.1 L 36.1 L (39.6-50.0) % Immature Gran # 0.06 H 0.13 H (0.00-0.04) X 10*3/uL Neutrophils # 12.60 H 10.30 H (1.80-7.70) X 10*3/uL Lymphocytes # 0.65 L (0.90-5.00) X 10*3/uL Potassium 3.3 L (3.5-5.5) mmol/L Glucose (74-99) mg/dL Calcium 8.2 L (8.7-10.3) mg/dL Total Protein 5.2 L (6.2-8.2) g/dL Albumin 3.1 L (3.8-4.9) g/dL Albumin/Globulin Ratio 1.48 L (1.60-3.17) g/dL 06/26/22 Range/Units 05:16 WBC (4.50-10.00) X 10*3/uL RBC (4.40-5.60) X 10*6/uL Hgb (13.0-17.0) g/dL Hct (39.6-50.0) % Immature Gran # (0.00-0.04) X 10*3/uL Neutrophils # (1.80-7.70) X 10*3/uL Lymphocytes # (0.90-5.00) X 10*3/uL Potassium 3.2 L (3.5-5.5) mmol/L Glucose 106 H (74-99) mg/dL Calcium 8.0 L (8.7-10.3) mg/dL Total Protein (6.2-8.2) g/dL Albumin (3.8-4.9) g/dL Albumin/Globulin Ratio (1.60-3.17) g/dL Microbiology - Last 24 Hours (Table) 06/22/22 14:43 Blood Culture - Preliminary Blood No Growth after 72 hours 06/22/22 14:43 Blood Culture - Preliminary Blood No Growth after 72 hours Assessment and Plan (1) Acute diverticulitis Narrative/Plan: Overall patient continues to slowly improve. Continue broad-spectrum antibiotic coverage. Continue clear liquids for now. Repeat labs tomorrow. Ambulate. Current Visit: Yes Status: Acute Code(s): K57.92 - DVTRCLI OF INTEST, PART UNSP, W/O PERF OR ABSCESS W/O BLEED SNOMED Code(s): 835032289
[2022-06-26] MEDS: KETOROLAC 15 MG/ML 1 ML VIAL IVP PRN ×3 (10:41→23:43)
--- NOTE | 2022-06-26 20:57 | P.PN ---
Subjective Progress Note Date: 06/25/22 Principal diagnosis: Acute complicated diverticulitis Patient is a 41-year-old male presented to the hospital with abdominal pain with a recent diagnosis of diverticulitis failing outpatient oral Augmentin therapy with repeat CAT scan shows perforation. on today's evaluation that is 06/25/2022, the patient remains to be afebrile, the patient abdominal pain has decreased in intensity the patient denies any nausea and vomiting, the patient did have some loose stool, the patient denies any chest pain shortness of breath or cough Objective - Vital Signs Vital signs: Vital Signs Temp 98.7 F 06/25/22 05:00 Pulse 94 06/25/22 11:04 Resp 18 06/25/22 11:04 BP 151/94 06/25/22 11:04 Pulse Ox 93 L 06/25/22 11:04 FiO2 Intake & Output 06/24/22 06/25/22 06/25/22 18:59 06:59 18:59 Intake Total 2140 Balance 2140 Intake: Intake, IV Titration 1900 Amount ACETAMINOPHEN IV (For NPO 200 ) 1,000 mg In Empty Bag 1 bag @ 400 mls/hr IVPB Q6H [facility] Rx#:[id number] Piperacillin-Tazobactam 3 200 .375 gm In Sodium Chloride 0.9% 100 ml @ 25 mls/hr IVPB Q6H [facility] Rx#: [id number] Sodium Chloride 0.9% 1, 1400 000 ml @ 130 mls/hr IV . Q7H42M [facility] Rx#:[id number] metroNIDAZOLE-NS PMX 500 100 mg In Saline 1 100ml.bag @ 100 mls/hr IVPB Q6H [facility] Rx#:[id number] Oral 240 Other: Voiding Method Toilet Toilet Toilet # Voids 5 # Bowel Movements 1 - Exam GENERAL DESCRIPTION: Middle-aged male lying in bed in no distress RESPIRATORY SYSTEM: Unlabored breathing , decreased breath sounds at bases HEART: S1 S2 regular rate and rhythm , ABDOMEN: Soft , mild distention and tenderness EXTREMITIES: No edema feet - Labs CBC & Chem 7: 06/26/22 05:16 06/26/22 05:16 Labs: Abnormal Lab Results - Last 24 Hours (Table) 06/25/22 06/25/22 Range/Units 06:54 06:54 WBC 14.50 H (4.50-10.00) X 10*3/uL RBC 3.91 L (4.40-5.60) X 10*6/uL Hgb 11.9 L (13.0-17.0) g/dL Hct 36.1 L (39.6-50.0) % Immature Gran # 0.06 H (0.00-0.04) X 10*3/uL Neutrophils # 12.60 H (1.80-7.70) X 10*3/uL Lymphocytes # 0.65 L (0.90-5.00) X 10*3/uL Potassium 3.3 L (3.5-5.5) mmol/L Calcium 8.2 L (8.7-10.3) mg/dL Total Protein 5.2 L (6.2-8.2) g/dL Albumin 3.1 L (3.8-4.9) g/dL Albumin/Globulin Ratio 1.48 L (1.60-3.17) g/dL Microbiology - Last 24 Hours (Table) 06/22/22 14:43 Blood Culture - Preliminary Blood No Growth after 48 hours 06/22/22 14:43 Blood Culture - Preliminary Blood No Growth after 48 hours Assessment and Plan (1) Acute diverticulitis Current Visit: Yes Status: Acute Code(s): K57.92 - DVTRCLI OF INTEST, PART UNSP, W/O PERF OR ABSCESS W/O BLEED SNOMED Code(s): 678932872 (2) Failure of outpatient treatment Current Visit: Yes Status: Acute Code(s): Z78.9 - OTHER SPECIFIED HEALTH STATUS SNOMED Code(s): 816926517 Plan: 1patient presented to hospital with sepsis in this patient did have a fever tachycardia elevated white count source is acute complicated diverticulitis with perforation and will need to cover for the enteric gram-negative both aerobes and anaerobes. 2patient to continue with Zosyn 3.375 g every 8 hours along with bowel rest white count is trending down Time with Patient: Less than 30
--- NOTE | 2022-06-26 20:58 | P.PN ---
Subjective Progress Note Date: 06/26/22 Principal diagnosis: Acute complicated diverticulitis Patient is a 41-year-old male presented to the hospital with abdominal pain with a recent diagnosis of diverticulitis failing outpatient oral Augmentin therapy with repeat CAT scan shows perforation. on today's evaluation that is 06/26/2022, the patient continues to be afebrile, the patient abdominal pain has decreased in intensity the patient denies any nausea and vomiting and has been tolerating a clear liquid diet which the patient had been started on, the patient did have some loose stool, the patient denies any chest pain shortness of breath or cough Objective - Vital Signs Vital signs: Vital Signs Temp 98.7 F 06/26/22 11:10 Pulse 87 06/26/22 11:10 Resp 18 06/26/22 11:10 BP 144/88 06/26/22 11:10 Pulse Ox 94 L 06/26/22 11:10 FiO2 Intake & Output 06/25/22 06/26/22 06/26/22 18:59 06:59 18:59 Intake Total 660 500 Output Total 4 Balance 656 500 Intake: Intake, IV Titration 300 Amount Piperacillin-Tazobactam 3 100 .375 gm In Sodium Chloride 0.9% 100 ml @ 25 mls/hr IVPB Q6H [facility] Rx#: [id number] Potassium Chloride 20 meq 100 In Water For Injection 1 100ml.bag @ 50 mls/hr IVPB [facility] Rx#: [id number] metroNIDAZOLE-NS PMX 500 100 mg In Saline 1 100ml.bag @ 100 mls/hr IVPB Q6H [facility] Rx#:[id number] Oral 360 500 Output: Urine 4 Other: Voiding Method Toilet Toilet # Voids 2 # Bowel Movements 2 - Exam GENERAL DESCRIPTION: Middle-aged male lying in bed in no distress RESPIRATORY SYSTEM: Unlabored breathing , decreased breath sounds at bases HEART: S1 S2 regular rate and rhythm , ABDOMEN: Soft , mild distention and tenderness EXTREMITIES: No edema feet - Labs CBC & Chem 7: 06/26/22 05:16 06/26/22 05:16 Labs: Abnormal Lab Results - Last 24 Hours (Table) 06/26/22 06/26/22 Range/Units 05:16 05:16 WBC 12.69 H (4.50-10.00) X 10*3/uL RBC 3.93 L (4.40-5.60) X 10*6/uL Hgb 12.1 L (13.0-17.0) g/dL Hct 36.1 L (39.6-50.0) % Immature Gran # 0.13 H (0.00-0.04) X 10*3/uL Neutrophils # 10.30 H (1.80-7.70) X 10*3/uL Potassium 3.2 L (3.5-5.1) mmol/L Glucose 106 H (74-99) mg/dL Calcium 8.0 L (8.4-10.2) mg/dL Microbiology - Last 24 Hours (Table) 06/22/22 14:43 Blood Culture - Preliminary Blood No Growth after 96 hours 06/22/22 14:43 Blood Culture - Preliminary Blood No Growth after 96 hours Assessment and Plan (1) Acute diverticulitis Current Visit: Yes Status: Acute Code(s): K57.92 - DVTRCLI OF INTEST, PART UNSP, W/O PERF OR ABSCESS W/O BLEED SNOMED Code(s): 380435119 (2) Failure of outpatient treatment Current Visit: Yes Status: Acute Code(s): Z78.9 - OTHER SPECIFIED HEALTH STATUS SNOMED Code(s): 513800869 Plan: 1patient presented to hospital with sepsis in this patient did have a fever tachycardia elevated white count source is acute complicated diverticulitis with perforation and will need to cover for the enteric gram-negative both aerobes and anaerobes. 2patient has shown clinically improvement and will continue with Zosyn 3.375 g every 8 hours and monitor clinical course closely Time with Patient: Less than 30
[2022-06-27] MEDS: HYDROmorphone 1 MG/ML 1 ML SYRINGE IVP PRN ×7 (01:36→22:49)
[2022-06-27] MEDS: PIPERACILLIN-TAZOBACTAM 3.375 GM in SODIUM CHLORIDE 0.9% 100 ML IVPB SCH ×4 (01:37→21:08)
[2022-06-27] MEDS: metroNIDAZOLE-NS PMX 500 MG in SALINE 1 100ML.BAG IVPB SCH ×4 (04:20→22:50)
[2022-06-27] MEDS: ONDANSETRON 4 MG/2 ML VIAL IVP PRN (05:20)
[2022-06-27] MEDS: SIMETHICONE 40 MG/0.6 ML DROPS 2,000 MG/30 ML BOTTLE PO SCH ×4 (05:21→22:50)
[2022-06-27] MEDS: KETOROLAC 15 MG/ML 1 ML VIAL IVP PRN ×3 (05:25→17:57)
[2022-06-27] MEDS: HEPARIN SODIUM,PORCINE/PF 5,000 UNIT/0.5 ML SYRINGE SQ SCH ×2 (08:18→21:08)
[2022-06-27] MEDS: PANTOPRAZOLE 40 MG/10 ML VIAL IV SCH (08:18)
[2022-06-27 09:12] LABS: HCT 38.4 % (39.6-50.0); HGB 12.7 g/dL (13.0-17.0); MCH 30.5 pg (27.0-32.0); MCHC 33.1 g/dL (32.0-37.0); MCV 92.3 fL (80.0-97.0); Mean Platelet Volume 10.3 fL (9.5-12.2); NRBC Per 100 WBC 0 /100 WBCS (0.0-0.0); Platelet Count 299 X 10*3/uL (140-440); RBC 4.16 X 10*6/uL (4.40-5.60); RDW 13.1 % (11.5-14.5); WBC 13.94 X 10*3/uL (4.50-10.00)
[2022-06-27] MEDS: SODIUM CHLORIDE 0.9% 1,000 ML IV SCH ×2 (09:49→19:02)
--- NOTE | 2022-06-27 10:13 | P.PN ---
Subjective Progress Note Date: 06/27/22 Principal diagnosis: Diverticulitis Patient says he feels better today than yesterday. T-max 99. White blood cell count did increase somewhat. He is tolerating clear liquids. Continues to have flatus and small bowel movements. Objective - Vital Signs Vital signs: Vital Signs Temp 99.0 F 06/27/22 04:11 Pulse 79 06/27/22 04:11 Resp 20 06/27/22 04:11 BP 145/89 06/27/22 04:11 Pulse Ox 95 06/27/22 04:11 FiO2 Intake & Output 06/26/22 06/27/22 06/27/22 18:59 06:59 18:59 Intake Total 1200 1600 Balance 1200 1600 Intake: IV 1200 1000 Piperacillin-Tazobactam 3 100 200 .375 gm In Sodium Chloride 0.9% 100 ml @ 25 mls/hr IVPB Q6H [facility] Rx#: [id number] Sodium Chloride 0.9% 1, 900 600 000 ml @ 75 mls/hr IV . [id number] [facility] Rx#:[id number] metroNIDAZOLE-NS PMX 500 200 200 mg In Saline 1 100ml.bag @ 100 mls/hr IVPB Q6H [facility] Rx#:[id number] Oral 600 Other: Voiding Method Toilet # Voids 3 # Bowel Movements 1 - Exam Abdomen: Soft, nondistended, mild diffuse tenderness - Labs CBC & Chem 7: 06/27/22 05:18 06/26/22 05:16 Labs: Abnormal Lab Results - Last 24 Hours (Table) 06/27/22 Range/Units 05:18 WBC 13.94 H (4.50-10.00) X 10*3/uL RBC 4.16 L (4.40-5.60) X 10*6/uL Hgb 12.7 L (13.0-17.0) g/dL Hct 38.4 L (39.6-50.0) % Microbiology - Last 24 Hours (Table) 06/22/22 14:43 Blood Culture - Preliminary Blood No Growth after 96 hours 06/22/22 14:43 Blood Culture - Preliminary Blood No Growth after 96 hours Assessment and Plan (1) Acute diverticulitis Narrative/Plan: Patient continues to improve clinically. White blood cell count did increase slightly. We'll repeat CBC tomorrow. Advance diet to full liquids. Continue antibiotics. Current Visit: Yes Status: Acute Code(s): K57.92 - DVTRCLI OF INTEST, PART UNSP, W/O PERF OR ABSCESS W/O BLEED SNOMED Code(s): 409206305
[2022-06-27 10:26] LABS: Basophils # (A) 0.09 X 10*3/uL (0.00-0.10); Basophils % (A) 0.6 %; Eosinophils # (A) 0.35 X 10*3/uL (0.04-0.35); Eosinophils % (A) 2.5 %; Immature Grans, Automated 2.4 %; Lymphocytes # (A) 1.89 X 10*3/uL (0.90-5.00); Lymphocytes % (A) 13.6 %; Monocytes # (A) 1.07 X 10*3/uL (0.20-1.00); Monocytes % (A) 7.7 %; Neutrophils % (A) 73.2 %
[2022-06-27 10:27] LABS: RBC Morphology NORMAL
--- NOTE | 2022-06-27 10:50 | P.PN ---
Subjective Progress Note Date: 06/27/22 Patient is a 41-year-old male with no significant past medical history presents the ED for abdominal pain. He was recently seen on 06/21/[address] abdomen and pelvis at that time demonstrated acute uncomplicated sigmoid colon diverticulitis and patient was discharged home on Augmentin. He presented back to the ED on 06/22/2022 for worsening abdominal pain. Patient reports abdominal pain ongoing for the past 3 days. Pain is generalized all over his abdomen. Pain is colicky in nature. Pain is 10 out of 10 in severity. Pain does not radiate. Pain is associated with nausea and vomiting along with chills. He denies any headache, lower extremity edema, cough, chest pain, shortness of breath, palpitations, changes in urination or bowel habits. Patient reports a decreased appetite. He denies any lightheadedness, numbness/weakness/tingling of the extremities. In the ER, he was tachycardic with heart rate of 96 and T-max of 100.4 Fahrenheit. Vital signs otherwise st able. CBC showed leukocytosis of 19.1 with neutrophilia. CMP showed sodium 134 glucose 108, total bilirubin of 2.6, AST of 79, ALT of 118. Patient is admitted for sepsis related to diverticulitis, failed outpatient therapy. 06/23 Glucose And Syrup Weigher was called last night for worsening abdominal pain. CT abdomen and pelvis was repeated which showed pneumoperitoneum. Surgery was consulted and recommended conservative management, nothing by mouth, IV Tylenol and ibuprofen, IV antibiotics. Echocardiogram was done which showed EF of 55-60% with no regional wall motion abnormalities. CBC shows improving leukocytosis of 16.4. INR 1.2. Lactic acid negative. 06/24 Patient reports improvement in his abdominal pain. Had 2 bowel movements and is passing gas. Leukocytosis improved to 14.9. CMP shows K 3.4, Ca 7.7 and ALT 56. 3 Patient reports continued improvement in his abdominal pain. One episode of nausea and vomiting. Continuing to have bowel movements. CBC and BMP pending at the time of this note. 06/26 Patient reports no changes in his abdominal pain. States that Toradol worked better than Dilaudid. No nausea and vomiting today. Leukocytosis improved to 12.69. Hemoglobin 12.1. BMP shows potassium of 3.2 and calcium of 8. 9/5 Patient reports no changes in his clinical condition. Pain well-controlled with current pain regimen. He reported having a bowel movement today. No nausea and vomiting. CBC shows leukocytosis of 13.94 and hemoglobin of 12.7. BMP and magnesium is pending this morning. General: non toxic, no distress, appears at stated age Derm: warm, dry Head: atraumatic, normocephalic, symmetric Eyes: EOMI, no lid lag, anicteric sclera Mouth: no lip lesion, mucus membranes moist Cardiovascular: Tachycardic, no murmur Lungs: CTA bilateral, no rhonchi, no rales , no accessory muscle use Abdominal: soft, tenderness to palpation in all 4 quadrants without rebound tenderness, no guarding, no appreciable organomegaly Ext: no gross muscle atrophy, no edema, no contractures Neuro: no focal neuro deficits Psych: Alert, oriented, appropriate affect #Sepsis #Perforated sigmoid diverticulitis with pneumoperitoneum #Hypokalemia #Transaminitis #Morbid obesity Patient currently meets sepsis criteria with tachycardia, leukocytosis and a positive source of infection. CT AP positive for acute diverticulitis. Patient is continued on Zosyn and Flagyl. Scheduled Tylenol and Toradol IV, Dilaudid IV as needed for pain management. Protonix 40 mg IV daily. Blood cultures are negative so far. Lactic acid negative. Patient be placed on telemetry monitoring. IVF decreased to normal saline at 75 mL per hour. Full liquid diet and advance as tolerated. Surgery on board. Infectious disease consulted. Cardiology consulted for cardiac risk stratification. Replace potassium via protocol. Repeat BMP tomorrow morning. Patient reports history of cholecystectomy. Review of home medication shows that the patient is on testosterone supplementation. Patient will benefit from a structured weight loss program. DVT prophylaxis: Heparin Discussed with: Patient Anticipated discharge: 1-[address]: Home Patient names his decision maker if he can't make decisions for himself. Patient would like to be full code. Patient will need long-term IV antibiotics on discharge. Objective - Vital Signs Vital signs: Vital Signs Temp 99.0 F 06/27/22 04:11 Pulse 79 06/27/22 04:11 Resp 20 06/27/22 04:11 BP 145/89 06/27/22 04:11 Pulse Ox 95 06/27/22 04:11 FiO2 Intake & Output 06/26/22 06/27/22 06/27/22 18:59 06:59 18:59 Intake Total 1200 1600 Balance 1200 1600 Intake: IV 1200 1000 Piperacillin-Tazobactam 3 100 200 .375 gm In Sodium Chloride 0.9% 100 ml @ 25 mls/hr IVPB Q6H [facility] Rx#: [id number] Sodium Chloride 0.9% 1, 900 600 000 ml @ 75 mls/hr IV . [id number] [facility] Rx#:[id number] metroNIDAZOLE-NS PMX 500 200 200 mg In Saline 1 100ml.bag @ 100 mls/hr IVPB Q6H [facility] Rx#:[id number] Oral 600 Other: Voiding Method Toilet # Voids 3 # Bowel Movements 1 - Labs CBC & Chem 7: 06/27/22 05:18 06/26/22 05:16 Labs: Abnormal Lab Results - Last 24 Hours (Table) 06/27/22 Range/Units 05:18 WBC 13.94 H (4.50-10.00) X 10*3/uL RBC 4.16 L (4.40-5.60) X 10*6/uL Hgb 12.7 L (13.0-17.0) g/dL Hct 38.4 L (39.6-50.0) % Immature Gran # 0.34 H (0.00-0.04) X 10*3/uL Neutrophils # 10.20 H (1.80-7.70) X 10*3/uL Monocytes # 1.07 H (0.20-1.00) X 10*3/uL Microbiology - Last 24 Hours (Table) 06/22/22 14:43 Blood Culture - Preliminary Blood No Growth after 96 hours 06/22/22 14:43 Blood Culture - Preliminary Blood No Growth after 96 hours
[2022-06-27 11:28] LABS: African American GFR (CKD) >90 (>60 ml/min/1.73 sqM); Anion Gap 10 mmol/L; Blood Urea Nitrogen 12 mg/dL (9-20); Carbon Dioxide 30 mmol/L (22-30); Chloride 95 mmol/L (98-107); Glucose 90 mg/dL (74-99); Non-African American GFR(CKD) >90 (>60 ml/min/1.73 sqM); Potassium 3.3 mmol/L (3.5-5.1); Sodium 135 mmol/L (137-145)
[2022-06-28] MEDS: KETOROLAC 15 MG/ML 1 ML VIAL IVP PRN ×4 (00:10→19:59)
[2022-06-28] MEDS: PIPERACILLIN-TAZOBACTAM 3.375 GM in SODIUM CHLORIDE 0.9% 100 ML IVPB SCH ×4 (02:19→22:32)
[2022-06-28] MEDS: HYDROmorphone 1 MG/ML 1 ML SYRINGE IVP PRN ×7 (02:35→23:48)
[2022-06-28] MEDS: metroNIDAZOLE-NS PMX 500 MG in SALINE 1 100ML.BAG IVPB SCH ×4 (04:11→22:31)
[2022-06-28] MEDS: PANTOPRAZOLE 40 MG/10 ML VIAL IV SCH (07:57)
[2022-06-28] MEDS: HEPARIN SODIUM,PORCINE/PF 5,000 UNIT/0.5 ML SYRINGE SQ SCH ×2 (07:57→22:33)
[2022-06-28] MEDS: SODIUM CHLORIDE 0.9% 1,000 ML IV SCH ×2 (08:00→22:33)
--- NOTE | 2022-06-28 08:47 | P.PN ---
Subjective Progress Note Date: 06/27/22 Principal diagnosis: Acute complicated diverticulitis Patient is a 41-year-old male presented to the hospital with abdominal pain with a recent diagnosis of diverticulitis failing outpatient oral Augmentin therapy with repeat CAT scan shows perforation. on today's evaluation that is 06/27/2022, the patient remains to be afebrile, the patient abdominal pain has decreased in intensity the patient denies any nausea and vomiting and has been tolerating a clear liquid diet , the patient denies any chest pain shortness of breath or cough Objective - Vital Signs Vital signs: Vital Signs Temp 98.6 F 06/27/22 17:32 Pulse 76 06/27/22 17:32 Resp 16 06/27/22 17:32 BP 148/91 06/27/22 17:32 Pulse Ox 96 06/27/22 17:32 FiO2 Intake & Output 06/27/22 06/27/22 06/28/22 06:59 18:59 06:59 Intake Total 1600 312 Balance 1600 312 Intake: IV 1000 312 Piperacillin-Tazobactam 3 200 100 .375 gm In Sodium Chloride 0.9% 100 ml @ 25 mls/hr IVPB Q6H [facility] Rx#: [id number] Sodium Chloride 0.9% 1, 600 12 000 ml @ 75 mls/hr IV . [id number] [facility] Rx#:[id number] metroNIDAZOLE-NS PMX 500 200 200 mg In Saline 1 100ml.bag @ 100 mls/hr IVPB Q6H [facility] Rx#:[id number] Oral 600 Other: Voiding Method Toilet # Voids 3 # Bowel Movements 1 - Exam GENERAL DESCRIPTION: Middle-aged male lying in bed in no distress RESPIRATORY SYSTEM: Unlabored breathing , decreased breath sounds at bases HEART: S1 S2 regular rate and rhythm , ABDOMEN: Soft , mild distention and tenderness EXTREMITIES: No edema feet - Labs CBC & Chem 7: 06/27/22 05:18 06/27/22 05:18 Labs: Abnormal Lab Results - Last 24 Hours (Table) 06/27/22 06/27/22 Range/Units 05:18 05:18 WBC 13.94 H (4.50-10.00) X 10*3/uL RBC 4.16 L (4.40-5.60) X 10*6/uL Hgb 12.7 L (13.0-17.0) g/dL Hct 38.4 L (39.6-50.0) % Immature Gran # 0.34 H (0.00-0.04) X 10*3/uL Neutrophils # 10.20 H (1.80-7.70) X 10*3/uL Monocytes # 1.07 H (0.20-1.00) X 10*3/uL Sodium 135 L (137-145) mmol/L Potassium 3.3 L (3.5-5.1) mmol/L Chloride 95 L (98-107) mmol/L Calcium 8.0 L (8.4-10.2) mg/dL Microbiology - Last 24 Hours (Table) 06/22/22 14:43 Blood Culture - Preliminary Blood No Growth after 120 hours 06/22/22 14:43 Blood Culture - Preliminary Blood No Growth after 120 hours Assessment and Plan (1) Acute diverticulitis Current Visit: Yes Status: Acute Code(s): K57.92 - DVTRCLI OF INTEST, PART UNSP, W/O PERF OR ABSCESS W/O BLEED SNOMED Code(s): 799714274 (2) Failure of outpatient treatment Current Visit: Yes Status: Acute Code(s): Z78.9 - OTHER SPECIFIED HEALTH STA TUS SNOMED Code(s): 411321144 Plan: 1patient presented to hospital with sepsis in this patient did have a fever tachycardia elevated white count source is acute complicated diverticulitis with perforation and will need to cover for the enteric gram-negative both aerobes and anaerobes. 2patient has shown clinically improvement however did has slight worsening of the white count which need to monitor closely if any further worsening of the white count patient benefit from a repeat CT, patient to continue with Zosyn 3.375 g every 8 hours and monitor clinical course closely Time with Patient: Less than 30
[2022-06-28] MEDS: SIMETHICONE 40 MG/0.6 ML DROPS 2,000 MG/30 ML BOTTLE PO SCH ×4 (08:59→22:38)
[2022-06-28 10:56] LABS: HCT 38.1 % (39.6-50.0); HGB 12.8 g/dL (13.0-17.0); MCH 30.5 pg (27.0-32.0); MCHC 33.6 g/dL (32.0-37.0); MCV 90.7 fL (80.0-97.0); Mean Platelet Volume 10.2 fL (9.5-12.2); NRBC Per 100 WBC 0.2 /100 WBCS (0.0-0.0); Platelet Count 323 X 10*3/uL (140-440); RDW 13.1 % (11.5-14.5); WBC 12.74 X 10*3/uL (4.50-10.00)
[2022-06-28 11:53] LABS: Basophils # (M) 0.13 X 10*3/uL (0.00-0.10); Eosinophils # (M) 0.38 X 10*3/uL (0.04-0.35); Lymphocytes # (M) 1.27 X 10*3/uL (0.90-5.00); Monocytes # (M) 0 X 10*3/uL (0.20-1.00); Neutrophils # (M) 10.96 X 10*3/uL (2.00-8.90); Neutrophils % (M) 86 %; RBC Morphology NORMAL
[2022-06-28] MEDS: ONDANSETRON 4 MG/2 ML VIAL IVP PRN (19:58)
--- NOTE | 2022-06-28 21:20 | P.PN ---
Subjective Progress Note Date: 06/28/22 Principal diagnosis: Diverticulitis patient says his pain is about the same or may be slightly improved today. He seemed to have some trouble with some dairy products given to him. He is passing gas and having bowel movements. White blood cell count Improved slightly today. Objective - Vital Signs Vital signs: Vital Signs Temp 98.7 F 06/28/22 11:12 Pulse 75 06/28/22 11:12 Resp 18 06/28/22 11:12 BP 158/98 06/28/22 11:12 Pulse Ox 95 06/28/22 11:12 FiO2 Intake & Output 06/28/22 06/28/22 06/29/22 06:59 18:59 06:59 Intake Total 740 Balance 740 Intake: IV 200 Piperacillin-Tazobactam 3 100 .375 gm In Sodium Chloride 0.9% 100 ml @ 25 mls/hr IVPB Q6H [facility] Rx#: [id number] metroNIDAZOLE-NS PMX 500 100 mg In Saline 1 100ml.bag @ 100 mls/hr IVPB Q6H [facility] Rx#:[id number] Oral 540 Other: Voiding Method Toilet Toilet # Voids 2 # Bowel Movements 1 - Exam Abdomen: Soft, nondistended, mild diffuse tenderness - Labs CBC & Chem 7: 06/28/22 06:45 06/27/22 05:18 Labs: Abnormal Lab Results - Last 24 Hours (Table) 06/28/22 Range/Units 06:45 WBC 12.74 H (4.50-10.00) X 10*3/uL RBC 4.20 L (4.40-5.60) X 10*6/uL Hgb 12.8 L (13.0-17.0) g/dL Hct 38.1 L (39.6-50.0) % Absolute Nucleated RBC 0.02 H (0.00-0.00) X 10*3/uL Neutrophils # (Manual) 10.96 H (2.00-8.90) X 10*3/uL Monocytes # (Manual) 0 L (0.20-1.00) X 10*3/uL Eosinophils # (Manual) 0.38 H (0.04-0.35) X 10*3/uL Basophils # (Manual) 0.13 H (0.00-0.10) X 10*3/uL NRBC/100 WBC Diff 0.2 H (0.0-0.0) /100 WBCS Microbiology - Last 24 Hours (Table) 06/22/22 14:43 Blood Culture - Final Blood No Growth after 144 hours 06/22/22 14:43 Blood Culture - Final Blood No Growth after 144 hours Assessment and Plan (1) Acute diverticulitis Narrative/Plan: 41-year-old male with complicated diverticulitis. Patient slowly improving. Anticipate discharge 24 to 48 hours if patient continues to do well. Current Visit: Yes Status: Acute Code(s): K57.92 - DVTRCLI OF INTEST, PART UNSP, W/O PERF OR ABSCESS W/O BLEED SNOMED Code(s): 629876566
[2022-06-29] MEDS: HYDROmorphone 1 MG/ML 1 ML SYRINGE IVP PRN ×9 (01:33→23:42)
[2022-06-29] MEDS: PIPERACILLIN-TAZOBACTAM 3.375 GM in SODIUM CHLORIDE 0.9% 100 ML IVPB SCH ×4 (02:30→23:09)
[2022-06-29] MEDS: DOCUSATE 100 MG CAP PO SCH ×3 (02:31→23:13)
[2022-06-29] MEDS: KETOROLAC 15 MG/ML 1 ML VIAL IVP PRN ×2 (02:40→09:56)
[2022-06-29] MEDS: ONDANSETRON 4 MG/2 ML VIAL IVP PRN ×4 (03:03→18:10)
[2022-06-29] MEDS: metroNIDAZOLE-NS PMX 500 MG in SALINE 1 100ML.BAG IVPB SCH ×2 (04:58→07:51)
[2022-06-29] MEDS: HEPARIN SODIUM,PORCINE/PF 5,000 UNIT/0.5 ML SYRINGE SQ SCH ×3 (07:49→23:47)
[2022-06-29] MEDS: PANTOPRAZOLE 40 MG/10 ML VIAL IV SCH (07:49)
[2022-06-29] MEDS: SIMETHICONE 40 MG/0.6 ML DROPS 2,000 MG/30 ML BOTTLE PO SCH ×4 (07:49→23:14)
[2022-06-29 09:14] LABS: African American GFR (CKD) >90 (>60 ml/min/1.73 sqM); Anion Gap 10 mmol/L; Blood Urea Nitrogen 8 mg/dL (9-20); Calcium 8.3 mg/dL (8.4-10.2); Carbon Dioxide 33 mmol/L (22-30); Chloride 93 mmol/L (98-107); Glucose 106 mg/dL (74-99); Non-African American GFR(CKD) >90 (>60 ml/min/1.73 sqM); Potassium 3.3 mmol/L (3.5-5.1); Sodium 136 mmol/L (137-145)
[2022-06-29 09:15] LABS: Basophils # (A) 0.09 X 10*3/uL (0.00-0.10); Basophils % (A) 0.5 %; Eosinophils # (A) 0.22 X 10*3/uL (0.04-0.35); Eosinophils % (A) 1.3 %; HCT 38.8 % (39.6-50.0); HGB 13.3 g/dL (13.0-17.0); Immature Grans, Automated 4.2 %; Lymphocytes # (A) 1.92 X 10*3/uL (0.90-5.00); Lymphocytes % (A) 11.3 %; MCH 30.8 pg (27.0-32.0); MCHC 34.3 g/dL (32.0-37.0); MCV 89.8 fL (80.0-97.0); Mean Platelet Volume 10.1 fL (9.5-12.2); Monocytes # (A) 1.14 X 10*3/uL (0.20-1.00); Monocytes % (A) 6.7 %; NRBC Per 100 WBC 0.2 /100 WBCS (0.0-0.0); Neutrophils # (A) 12.86 X 10*3/uL (1.80-7.70); Platelet Count 395 X 10*3/uL (140-440); RBC 4.32 X 10*6/uL (4.40-5.60); RDW 13.1 % (11.5-14.5); WBC 16.94 X 10*3/uL (4.50-10.00)
[2022-06-29] MEDS: SODIUM CHLORIDE 0.9% 1,000 ML IV SCH ×2 (12:07→23:12)
[2022-06-29] MEDS ORDERED: POTASSIUM CHLORIDE ER 20 MEQ TAB.ER PO STA (12:22)
--- NOTE | 2022-06-29 12:53 | P.PN ---
Subjective Progress Note Date: 06/29/22 CHIEF COMPLAINT: Perforated Diverticulitis HISTORY OF PRESENT ILLNESS: Patient is complaining of more right lower quadrant abdominal pain. He did have episode of vomiting yesterday. He does rate his pain 5 out of 10. He reports his pain was about 6 out of 10 yesterday. His only passing a small amount of flatus during the night. Has had no bowel movement in 24 hours. He does report increased discomfort on that right side of the abdomen. Afebrile. WBC is up from 12.74-16.94. Potassium 3.3 and being replaced PHYSICAL EXAM: VITAL SIGNS: Reviewed. GENERAL: Well-developed in no acute distress. HEENT: No sclera icterus. Extraocular movements grossly intact. Moist buccal mucosa. Head is atraumatic, normocephalic. ABDOMEN: Soft. Nondistended. Tenderness to palpation of the right lower abdomen NEUROLOGIC: Alert and oriented. Cranial nerves II through XII grossly intact. ASSESSMENT: 1. Perforated diverticulitis 2. Leukocytosis PLAN: -Due to patient's increase in white count and abdominal pain computed tomography scan of the abdomen and pelvis with oral and IV contrast ordered for further evaluation -Continue antibiotics -Continue full liquid diet. Discussed with patient to eat only a small amount. If symptoms worsen then to stop eating -Continue pain medication as needed -Continue IV fluids -Potassium being replaced Physician Aircraft Restorer note has been reviewed by physician. Signing provider agrees with the documented findings, assessment, and plan of care. Objective - Vital Signs Vital signs: Vital Signs Temp 98.1 F 06/29/22 11:03 Pulse 71 06/29/22 11:03 Resp 18 06/29/22 11:03 BP 147/95 06/29/22 11:03 Pulse Ox 98 06/29/22 11:03 FiO2 Intake & Output 06/28/22 06/29/22 06/29/22 18:59 06:59 18:59 Other: Voiding Method Toilet Toilet # Bowel Movements 0 - Labs CBC & Chem 7: 06/29/22 05:27 06/29/22 05:27 Labs: Abnormal Lab Results - Last 24 Hours (Table) 06/29/22 06/29/22 Range/Units 05:27 05:27 WBC 16.94 H (4.50-10.00) X 10*3/uL RBC 4.32 L (4.40-5.60) X 10*6/uL Hct 38.8 L (39.6-50.0) % Absolute Nucleated RBC 0.03 H (0.00-0.00) X 10*3/uL Immature Gran # 0.71 H (0.00-0.04) X 10*3/uL Neutrophils # 12.86 H (1.80-7.70) X 10*3/uL Monocytes # 1.14 H (0.20-1.00) X 10*3/uL NRBC/100 WBC Diff 0.2 H (0.0-0.0) /100 WBCS Sodium 136 L (137-145) mmol/L Potassium 3.3 L (3.5-5.1) mmol/L Chloride 93 L (98-107) mmol/L Carbon Dioxide 33 H (22-30) mmol/L BUN 8 L (9-20) mg/dL Glucose 106 H (74-99) mg/dL Calcium 8.3 L (8.4-10.2) mg/dL Microbiology - Last 24 Hours (Table) 06/22/22 14:43 Blood Culture - Final Blood No Growth after 144 hours 06/22/22 14:43 Blood Culture - Final Blood No Growth after 144 hours
[2022-06-29] MEDS ORDERED: POTASSIUM CHLORIDE 10 MEQ in WATER FOR INJECTION 1 100ML.BAG IVPB ONE ×2 (13:30→14:30)
[2022-06-29] MEDS: IOPAMIDOL CONTRAST (ORAL USE) VIAL PO PRN ×2 (13:38→15:06)
[2022-06-29] MEDS ORDERED: ROPIVACAINE 5 MG/ML 30 ML VIAL MISCELLANE ONE ×2 (17:26)
--- NOTE | 2022-06-29 17:29 | P.PN ---
Progress Note - Text Progress Note Date: 06/29/22 Patient's white blood cell count was elevated this morning he was also having increased abdominal discomfort. He and I discussed the options and ordered a CAT scan. The CAT scan films were reviewed and unfortunately do demonstrate worsening abscess in the sigmoid colon region. There is some tracking of air in the retroperitoneum. Overall the degree of extraluminal pneumoperitoneum elsewhere in the abdomen is improved. I suspect the patient reperforate in the last 24-36 hours. Patient I discussed the options. We'll proceed with exploratory laparotomy with partial colectomy and end colostomy at this time. Risks of bleeding, infection, abscess, hernia, dehiscence, ostomy-related com plications, ureteral and bowel injury, need for further surgery reviewed. He understands and wishes to proceed.
[2022-06-29] MEDS: fentaNYL (PF) 50 MCG/ML 2 ML AMP IVP ONE ×2 (18:11→18:28)
[2022-06-29] MEDS ORDERED: DEXAMETHASONE SOD PHOSPHATE 10 MG/ML 1 ML VIAL ONE (18:54)
[2022-06-29] MEDS ORDERED: fentaNYL (PF) 50 MCG/ML 2 ML AMP ONE (18:54)
[2022-06-29] MEDS ORDERED: SUCCINYLCHOLINE CHLORIDE 200 MG/10 ML VIAL IV ONE (18:54)
[2022-06-29] MEDS ORDERED: LIDOCAINE 2% INJ 20 MG/ML (2 ML VIAL) ONE (18:54)
[2022-06-29] MEDS ORDERED: NEOSTIGMINE 1 MG/ML 10 ML VIAL ONE (18:54)
[2022-06-29] MEDS ORDERED: GLYCOPYRROLATE 0.2 MG/ML 2 ML VIAL ONE (18:54)
[2022-06-29] MEDS ORDERED: MIDAZOLAM 2 MG/2 ML VIAL ONE (18:54)
[2022-06-29] MEDS ORDERED: ROCURONIUM 10 MG/ML (5 ML VIAL) IV ONE (18:54)
[2022-06-29] MEDS ORDERED: PROPOFOL 10 MG/ML 20 ML VIAL IV ONE (18:54)
[2022-06-29] MEDS ORDERED: SCOPOLAMINE 1 MG/72 HR PATCH TRANSDERM ONE (18:55)
[2022-06-29] MEDS ORDERED: SODIUM CHLORIDE 0.9% 1,000 ML IV ONE ×2 (18:56)
[2022-06-29] MEDS ORDERED: ceFAZolin 1,000 MG VIAL IVPB ONE (19:13)
[2022-06-29] MEDS ORDERED: metroNIDAZOLE-NS PMX 500 MG in SALINE 1 100ML.BAG IVPB ONE (19:15)
[2022-06-29] MEDS ORDERED: LACTATED RINGERS 1,000 ML IV ONE (19:48)
[2022-06-29] MEDS ORDERED: METOCLOPRAMIDE 5 MG/ML 2 ML VIAL IVP PRN (21:34)
[2022-06-29] MEDS ORDERED: DEXTROSE IV SCH ×2 (21:45)
[2022-06-29] MEDS ORDERED: [UNRECOGNIZED DRUG - OTHER] IV SCH ×2 (21:45)
--- NOTE | 2022-06-29 21:46 | P.OP ---
Date of Procedure: 06/29/22 Procedure(s) Performed: PREOPERATIVE DIAGNOSIS: Perforated sigmoid diverticulitis POSTOPERATIVE DIAGNOSIS: Same PROCEDURE: Sigmoid colectomy with end colostomy SURGEON: Diogo EBL: 250 mL ANESTHESIA: General COMPLICATIONS: None OPERATIVE PROCEDURE: Patient was placed on the operative table in the supine position. The patient was then elevated anteriorly with the placed under general anesthesia. The abdomen was prepped and draped in usual sterile fashion. A vertical incision was made encompassing extending from the suprapubic region above the umbilicus. This was later lengthened superiorly. The fascia was divided as well. The patient had some loose adhesions to the right lower abdominal wall. Once that was freed up we were able to use the Bookwalter retractor. The patient had extensive adhesions between the small bowel loops with small bowel loops also adherent to the sigmoid colon and mes enteric abscess that was present. Blunt dissection took place to free up all of the small bowel loops. Any purulent fluid was evacuated. There were a few portions of the small bowel that almost had a partial obstruction appearance. The patient's sigmoid colon was able to be mobilized. The abscess was present on the mesenteric side of the mid sigmoid colon extending to the right. Once I had the sigmoid colon defined the bowel was divided proximally and distally using a linear 75 stapler. The mesentery was then divided using the LigaSure device and silk ties. The specimen was passed off. As I inspected the distal sigmoid colon there was noted to be a one-inch segment or so that was somewhat ischemic appearing because of the dissection on the mesentery. I removed another 1 inch or so of the distal aspect of the sigmoid colon. This was also performed using a linear stapler. The sigmoid colon was then mobilized by incising the white line of Toldt. Once I had enough length on the colon the abdomen was copiously irrigated with 3 L of saline. No further purulence was encountered at that time. A circular incision was made in the left midabdomen. Dissection through the subcutaneous fat and fascia took place using electrocautery. I bluntly entered the peritoneal cavity and this was further bluntly opened. The bowel was brought out through this defect in the left midabdomen. A drain was placed into the pelvis through a right lower quadrant stab incision. This was sutured in place using a 3-0 silk stitch. The midline fascia was then reapproximated using 3 separate double-stranded #1 PDS sutures. The subcutaneous tissues were irrigated. The subcutaneous tissues were closed using 3-0 Vicryl sutures. The skin was then closed using rosaura. 3 separate sites were left open along the midline incision for Telfa wick placement. The ostomy was then addressed. A portion of the pericolonic fat was removed using the LigaSure device. The staple line was then removed using electrocautery. The ostomy was then matured in a inaja fashion using interrupted 3-0 Vicryl sutures. An ostomy appliance was then applied. Sterile dressings were then applied to the midline incision. DISPOSITION: Stable to recovery room
[2022-06-29] MEDS ORDERED: HYDROmorphone 0.5 MG/0.5 ML SYRINGE IVP ONE (21:50)
[2022-06-29] MEDS: D5-0.45% NACL WITH KCL 20MEQ/L 1,000 ML IV SCH (23:13)
[2022-06-30] MEDS: HYDROmorphone 1 MG/ML 1 ML SYRINGE IVP PRN ×9 (00:38→23:00)
[2022-06-30] MEDS: ACETAMINOPHEN IV (For NPO) 1,000 MG in EMPTY BAG 1 BAG IVPB SCH ×4 (00:51→18:03)
[2022-06-30] MEDS: PIPERACILLIN-TAZOBACTAM 3.375 GM in SODIUM CHLORIDE 0.9% 100 ML IVPB SCH ×3 (02:57→20:15)
[2022-06-30] MEDS: D5-0.45% NACL WITH KCL 20MEQ/L 1,000 ML IV SCH ×3 (04:48→20:16)
[2022-06-30] MEDS: DOCUSATE 100 MG CAP PO SCH ×2 (08:52→20:16)
[2022-06-30] MEDS: HEPARIN SODIUM,PORCINE/PF 5,000 UNIT/0.5 ML SYRINGE SQ SCH ×2 (08:52→16:01)
[2022-06-30] MEDS: PANTOPRAZOLE 40 MG/10 ML VIAL IV SCH (08:52)
[2022-06-30] MEDS: SIMETHICONE 40 MG/0.6 ML DROPS 2,000 MG/30 ML BOTTLE PO SCH ×4 (10:36→20:50)
[2022-06-30 10:42] LABS: Basophils # (A) 0.06 X 10*3/uL (0.00-0.10); Basophils % (A) 0.3 %; Eosinophils # (A) 0 X 10*3/uL (0.04-0.35); Eosinophils % (A) 0 %; HCT 38.9 % (39.6-50.0); HGB 13.1 g/dL (13.0-17.0); Immature Grans, Automated 2.3 %; Lymphocytes # (A) 0.87 X 10*3/uL (0.90-5.00); Lymphocytes % (A) 3.9 %; MCH 30.4 pg (27.0-32.0); MCHC 33.7 g/dL (32.0-37.0); MCV 90.3 fL (80.0-97.0); Mean Platelet Volume 9.9 fL (9.5-12.2); Monocytes # (A) 0.99 X 10*3/uL (0.20-1.00); Monocytes % (A) 4.4 %; NRBC Per 100 WBC 0 /100 WBCS (0.0-0.0); Neutrophils # (A) 19.83 X 10*3/uL (1.80-7.70); Neutrophils % (A) 89.1 %; Platelet Count 442 X 10*3/uL (140-440); RBC 4.31 X 10*6/uL (4.40-5.60); RDW 13.2 % (11.5-14.5); WBC 22.26 X 10*3/uL (4.50-10.00)
[2022-06-30 10:47] LABS: African American GFR (CKD) 107.1 (60.0-200.0); Anion Gap 8.6 mmol/L (10.00-18.00); BUN/Creat Ratio 9.4 Ratio (12.00-20.00); Blood Urea Nitrogen 9.4 mg/dL (9.0-27.0); Calcium 8.3 mg/dL (8.7-10.3); Carbon Dioxide 29.4 mmol/L (20.0-27.5); Non-African American GFR(CKD) 92.4 (60.0-200.0); Potassium 4.1 mmol/L (3.5-5.5)
--- NOTE | 2022-06-30 13:18 | P.PN ---
Subjective Progress Note Date: 06/30/22 CHIEF COMPLAINT: Perforated Diverticulitis HISTORY OF PRESENT ILLNESS: Patient is postop day #1 status post sigmoid colectomy with end colostomy for perforated sigmoid diverticulitis. Patient reports that his abdominal pain is controlled in different from yesterday. Reports more of an incisional pain. He denies any nausea or vomiting. NG tube in place with the 100 mL bilious output. TAMMY drain with 40 mL of serosanguineous output. Afebrile. WBC is up from 16.94-22.26 hemoglobin 13.1 sodium 136 p otassium 4.1 creatinine 1.0 PHYSICAL EXAM: VITAL SIGNS: Reviewed. GENERAL: Well-developed in no acute distress. HEENT: No sclera icterus. Extraocular movements grossly intact. Moist buccal mucosa. Head is atraumatic, normocephalic. ABDOMEN: Soft. Nondistended. Incisional dressing small amount of blood saturation noted at the distal aspect. Colostomy on the left side of the abdomen. Stoma beefy red. Serosanguineous drainage noted in colostomy bag NEUROLOGIC: Alert and oriented. Cranial nerves II through XII grossly intact. ASSESSMENT: 1. Perforated sigmoid diverticulitis status post sigmoid colectomy with end colostomy 2. Leukocytosis PLAN: -Continue NG tube for decompression -Keep patient nothing by mouth -Continue IV fluids -Continue IV antibiotics -Continue pain medication as needed -GI prophylaxis Protonix and DVT prophylaxis subcu heparin Physician Spring Former note has been reviewed by physician. Signing provider agrees with the documented findings, assessment, and plan of care. I have personally seen and examined the patient, reviewed the ACADEMIC SUCCESS COORDINATOR /PAs history, exam and MDM and agree with the assessment and plan as written. Based on total visit time, I have performed more than 50% of the visit. As above: Patient says the pain he was having preoperatively is improved. Now he is having incisional pain. Colostomy is pink without function thus far. TAMMY draining serosanguineous. Labs noted. Continue antibiotics. Gradually increase activity. Add Toradol for pain control. Objective - Vital Signs Vital signs: Vital Signs Temp 97.7 F 06/30/22 06:13 Pulse 87 06/30/22 06:13 Resp 16 06/30/22 06:13 BP 124/82 06/30/22 06:13 Pulse Ox 92 L 06/30/22 06:13 FiO2 Intake & Output 06/29/22 06/30/22 06/30/22 18:59 06:59 18:59 Intake Total 1120 600 Output Total 2130 Balance 1120 -1530 Weight 138.346 kg Intake: IV 900 600 Piperacillin-Tazobactam 3 100 .375 gm In Sodium Chloride 0.9% 100 ml @ 25 mls/hr IVPB Q6H [facility] Rx#: [id number] metroNIDAZOLE-NS PMX 500 100 mg In Saline 1 100ml.bag @ 100 mls/hr IVPB Q6H [facility] Rx#:[id number] Intake, IV Titration 100 Amount Potassium Chloride 10 meq 100 In Water For Injection 1 100ml.bag @ 100 mls/hr IVPB ONCE ONE Rx#: [id number] Oral 120 Output: Gastric Drainage 90 Drainage 80 Right Abdomen 80 Urine 1650 Uretheral (Juárez) 900 Estimated Blood Loss 310 Other: Voiding Method Toilet # Voids 4 # Bowel Movements 0 - Labs CBC & Chem 7: 06/30/22 08:08 06/30/22 08:08 Labs: Abnormal Lab Results - Last 24 Hours (Table) 06/30/22 06/30/22 Range/Units 08:08 08:08 WBC 22.26 H (4.50-10.00) X 10*3/uL RBC 4.31 L (4.40-5.60) X 10*6/uL Hct 38.9 L (39.6-50.0) % Plt Count 442 H (140-440) X 10*3/uL Immature Gran # 0.51 H (0.00-0.04) X 10*3/uL Neutrophils # 19.83 H (1.80-7.70) X 10*3/uL Lymphocytes # 0.87 L (0.90-5.00) X 10*3/uL Eosinophils # 0 L (0.04-0.35) X 10*3/uL Carbon Dioxide 29.4 H (20.0-27.5) mmol/L Anion Gap 8.60 L (10.00-18.00) mmol/L BUN/Creatinine Ratio 9.40 L (12.00-20.00) Ratio Glucose 174 H (70-110) mg/dL Calcium 8.3 L (8.7-10.3) mg/dL
--- NOTE | 2022-06-30 15:33 | P.GSCN ---
History of Present Illness Consult date: 06/30/22 Reason for Consult: Right renal abnormality Requesting physician: Torsten Lind History of present illness: The patient is a 41-year-old white male admitted 06/22/2022 with perforated diverticulitis, for which he ultimately underwent a sigmoid colectomy and end colostomy yesterday evening. He has had several CT scans done during this hospitalization. The first was performed at the time of admission, revealing normal renal perfusion. An incidental right simple renal cyst was seen. A repeat CT scan performed yesterday suggested impaired perfusion to the right upper pole. He is concerned about renal function because his grandfather had renal failure, but the patient has no history of renal disease. Review of Systems - Gastrointestinal Reports as per HPI - Genitourinary Denies dysuria, Denies flank pain, Denies hematuria Past Medical History Past Medical History: No Reported History History of Any Multi-Drug Resistant Organisms: None Reported Past Surgical History: Cholecystectomy, Orthopedic Surgery Additional Past Surgical History / Comment(s): sinus Past Anesthesia/Blood Transfusion Reactions: No Reported Reaction Additional Past Anesthesia/Blood Transfusion Reaction / Comm: Nauea Past Psychological History: No Psychological Hx Reported Smoking Status: Never smoker Past Alcohol Use History: None Reported Past Drug Use History: None Reported Medications and Allergies Home Medications Medication Instructions Recorded Confirmed Type Omeprazole 20 mg PO DAILY 04/05/21 06/22/22 History Amoxic-Pot Clav 875-125Mg 1 tab PO Q12HR #20 tab 06/21/22 06/22/22 Rx [Augmentin 875-125] Ondansetron Odt [Zofran Odt] 4 mg PO Q8HR PRN #10 tab 06/21/22 06/22/22 Rx Testosterone Cypionate 200 mg IM Q14D 06/21/22 06/22/22 History [Depo-Testosterone] Allergies Allergy/AdvReac Type Severity Reaction Status Date / Time No Known Allergies Allergy Verified 06/22/22 16:06 Surgical - Exam Vital Signs Temp Pulse Resp BP Pulse Ox 100.4 F H 96 18 127/79 96 06/22/22 14:31 06/22/22 14:31 06/22/22 14:31 06/22/22 14:31 06/22/22 14:31 - General well developed, well nourished, no distress - Respiratory normal respiratory effort - Genitourinary normal penis with no external lesions, testicles non-tender - Psychiatric oriented to time, oriented to person, oriented to place, speech is normal, memory intact Results - Labs 06/30/22 08:08 06/30/22 08:08 Abnormal Lab Results - Last 24 Hours (Table) 06/30/22 06/30/22 Range/Units 08:08 08:08 WBC 22.26 H (4.50-10.00) X 10*3/uL RBC 4.31 L (4.40-5.60) X 10*6/uL Hct 38.9 L (39.6-50.0) % Plt Count 442 H (140-440) X 10*3/uL Immature Gran # 0.51 H (0.00-0.04) X 10*3/uL Neutrophils # 19.83 H (1.80-7.70) X 10*3/uL Lymphocytes # 0.87 L (0.90-5.00) X 10*3/uL Eosinophils # 0 L (0.04-0.35) X 10*3/uL Carbon Dioxide 29.4 H (20.0-27.5) mmol/L Anion Gap 8.60 L (10.00-18.00) mmol/L BUN/Creatinine Ratio 9.40 L (12.00-20.00) Ratio Glucose 174 H (70-110) mg/dL Calcium 8.3 L (8.7-10.3) mg/dL Diabetes panel 06/30/22 Range/Units 08:08 Sodium 136 (135-145) mmol/L Potassium 4.1 (3.5-5.5) mmol/L Chloride 98 (96-109) mmol/L Carbon Dioxide 29.4 H (20.0-27.5) mmol/L BUN 9.4 (9.0-27.0) mg/dL Creatinine 1.0 (0.6-1.5) mg/dL Glucose 174 H (70-110) mg/dL Calcium 8.3 L (8.7-10.3) mg/dL Calcium panel 06/30/22 Range/Units 08:08 Calcium 8.3 L (8.7-10.3) mg/dL Pituitary panel 06/30/22 Range/Units 08:08 Sodium 136 (135-145) mmol/L Potassium 4.1 (3.5-5.5) mmol/L Chloride 98 (96-109) mmol/L Carbon Dioxide 29.4 H (20.0-27.5) mmol/L BUN 9.4 (9.0-27.0) mg/dL Creatinine 1.0 (0.6-1.5) mg/dL Glucose 174 H (70-110) mg/dL Calcium 8.3 L (8.7-10.3) mg/dL Adrenal panel 06/30/22 Range/Units 08:08 Sodium 136 (135-145) mmol/L Potassium 4.1 (3.5-5.5) mmol/L Chloride 98 (96-109) mmol/L Carbon Dioxide 29.4 H (20.0-27.5) mmol/L BUN 9.4 (9.0-27.0) mg/dL Creatinine 1.0 (0.6-1.5) mg/dL Glucose 174 H (70-110) mg/dL Calcium 8.3 L (8.7-10.3) mg/dL - Imaging CT scan - abdomen: report reviewed, image reviewed Assessment and Plan (1) Genitourinary x-ray or scan abnormality Current Visit: Yes Status: Acute Code(s): R93.89 - ABNORMAL FINDINGS ON DX IMAGING OF OTH BODY STRUCTURES SNOMED Code(s): 602743931 Plan: Renal perfusion appeared normal on the CT scan performed June 23, but the CT scan done yesterday suggested impaired perfusion to the right upper pole. His serum creatinine level remains normal. I suspect this is a transient finding related to infection extending into the retroperitoneum. I do not feel that any intervention is warranted at this time. Repeat imaging could be considered, though I would avoid administration of IV contrast in the short-term unless it is required for evaluation of the intra-abdominal process. I would suggest continued monitoring of renal function.
[2022-06-30] MEDS: ONDANSETRON 4 MG/2 ML VIAL IVP PRN ×2 (15:48→23:01)
[2022-06-30] MEDS: KETOROLAC 15 MG/ML 1 ML VIAL IVP SCH (18:02)
[2022-06-30] MEDS: SODIUM CHLORIDE 0.9% 1,000 ML IV SCH (20:02)
--- NOTE | 2022-06-30 20:15 | CT ---
EXAMINATION TYPE: CT abdomen pelvis w con DATE OF EXAM: 06/29/2022 COMPARISON: CT 06/23/2022 HISTORY: Diverticulitis CT DLP: The 3313.9 mGycm Automated exposure control for dose reduction was used. TECHNIQUE: Helical acquisition of images from the lung bases through the pelvis have been completed. CONTRAST: Performed with Oral Contrast and with IV Contrast, patient injected with 100 mL of Isovue 370. FINDINGS: Bilateral inguinal hernias contain fat LUNG BASES: No significant abnormality is appreciated. AORTA: No significant abnormality is appreciated. LIVER/GB: Patient is post cholecystectomy. Low-attenuation within the liver may be due to hepatic lila atosis. PANCREAS: No significant abnormality is seen. SPLEEN: No significant abnormality is seen. ADRENALS: No significant abnormality is seen. KIDNEYS: Low-attenuation, loss of cortical medullary differentiation present at the upper pole the ri ght kidney which is developed in the interval. Retroaortic left renal vein is noted REPRODUCTIVE ORGANS: Prostate shows some calcification and is somewhat enlarged. BOWEL: There is diverticular change seen in the sigmoid colon with pericolonic inflammatory change, there is fluid attenuation adjacent to the colon towards the midline and right lower quadrant, air-fl uid levels also present at this level. FREE AIR: No Free Air visible. ASCITES: None visible. PELVIC ADENOPATHY: None visualized. RETROPERITONEAL ADENOPATHY: No Retroperitoneal Adenopathy visible. URINARY BLADDER: No significant abnormality is seen. OSSEOUS STRUCTURES: No significant abnormality is seen. IMPRESSION: DIVERTICULAR ABSCESS AND LIKELY PERFORATION IS NOTED WITH INFLAMMATORY CHANGE. PROBABLE RIGHT RENAL I NFARCT AT THE UPPER POLE. POSTOP CHANGES. CASE DISCUSSED WITH THE REFERRING CLINICIAN.
[2022-07-01] MEDS: ACETAMINOPHEN IV (For NPO) 1,000 MG in EMPTY BAG 1 BAG IVPB SCH ×4 (00:17→18:05)
[2022-07-01] MEDS: HEPARIN SODIUM,PORCINE/PF 5,000 UNIT/0.5 ML SYRINGE SQ SCH ×3 (00:24→15:33)
[2022-07-01] MEDS: KETOROLAC 15 MG/ML 1 ML VIAL IVP SCH ×4 (00:24→18:05)
[2022-07-01] MEDS: HYDROmorphone 1 MG/ML 1 ML SYRINGE IVP PRN ×8 (02:07→21:34)
[2022-07-01] MEDS: PIPERACILLIN-TAZOBACTAM 3.375 GM in SODIUM CHLORIDE 0.9% 100 ML IVPB SCH ×3 (04:10→19:40)
[2022-07-01] MEDS: D5-0.45% NACL WITH KCL 20MEQ/L 1,000 ML IV SCH ×4 (06:01→21:56)
[2022-07-01] MEDS: ONDANSETRON 4 MG/2 ML VIAL IVP PRN ×2 (07:36→15:33)
--- NOTE | 2022-07-01 08:42 | P.PN ---
Subjective Progress Note Date: 06/28/22 Principal diagnosis: Acute complicated diverticulitis Patient is a 41-year-old male presented to the hospital with abdominal pain with a recent diagnosis of diverticulitis failing outpatient oral Augmentin therapy with repeat CAT scan shows perforation. on today's evaluation that is 06/28/2022, the patient continues to be afebrile, the patient abdominal pain has slightly decreased in intensity the patient denies any nausea and vomiting, the patient has been tolerating a clear liquid diet , the patient denies any chest pain shortness of breath or cough Objective - Vital Signs Vital signs: Vital Signs Temp 98.7 F 06/28/22 11:12 Pulse 75 06/28/22 11:12 Resp 18 06/28/22 11:12 BP 158/98 06/28/22 11:12 Pulse Ox 95 06/28/22 11:12 FiO2 Intake & Output 06/27/22 06/28/22 06/28/22 18:59 06:59 18:59 Intake Total 312 740 Balance 312 740 Intake: IV 312 200 Piperacillin-Tazobactam 3 100 100 .375 gm In Sodium Chloride 0.9% 100 ml @ 25 mls/hr IVPB Q6H [facility] Rx#: [id number] Sodium Chloride 0.9% 1, 12 000 ml @ 75 mls/hr IV . S80H35M [facility] Rx#:[id number] metroNIDAZOLE-NS PMX 500 200 100 mg In Saline 1 100ml.bag @ 100 mls/hr IVPB Q6H [facility] Rx#:[id number] Oral 540 Other: Voiding Method Toilet Toilet Toilet # Voids 2 # Bowel Movements 1 - Exam GENERAL DESCRIPTION: Middle-aged male lying in bed in no distress RESPIRATORY SYSTEM: Unlabored breathing , decreased breath sounds at bases HEART: S1 S2 regular rate and rhythm , ABDOMEN: Soft , mild distention and tenderness EXTREMITIES: No edema feet - Labs CBC & Chem 7: 06/30/22 08:08 06/30/22 08:08 Labs: Abnormal Lab Results - Last 24 Hours (Table) 06/28/22 Range/Units 06:45 WBC 12.74 H (4.50-10.00) X 10*3/uL RBC 4.20 L (4.40-5.60) X 10*6/uL Hgb 12.8 L (13.0-17.0) g/dL Hct 38.1 L (39.6-50.0) % Absolute Nucleated RBC 0.02 H (0.00-0.00) X 10*3/uL NRBC/100 WBC Diff 0.2 H (0.0-0.0) /100 WBCS Microbiology - Last 24 Hours (Table) 06/22/22 14:43 Blood Culture - Preliminary Blood No Growth after 120 hours 06/22/22 14:43 Blood Culture - Preliminary Blood No Growth after 120 hours Assessment and Plan (1) Acute diverticulitis Current Visit: Yes Status: Acute Code(s): K57.92 - DVTRCLI OF INTEST, PART UNSP, W/O PERF OR ABSCESS W/O BLEED SNOMED Code(s): 008153087 (2) Failure of outpatient treatment Current Visit: Yes Status: Acute Code(s): Z78.9 - OTHER SPECIFIED HEALTH STATUS SNOMED Code(s): 813230742 Plan: 1patient presented to hospital with sepsis in this patient did have a fever tachycardia elevated white count source is acute complicated diverticulitis with perforation and will need to cover for the enteric gram-negative both aerobes and anaerobes. 2patient has shown clinically improvement and will continue with Zosyn 3.375 g every 8 hours and monitor clinical course closely Time with Patient: Less than 30
--- NOTE | 2022-07-01 08:44 | P.PN ---
Subjective Progress Note Date: 06/29/22 Principal diagnosis: Acute complicated diverticulitis Patient is a 41-year-old male presented to the hospital with abdominal pain with a recent diagnosis of diverticulitis failing outpatient oral Augmentin therapy with repeat CAT scan shows perforation. on today's evaluation that is 06/29/2022, the patient remains to be afebrile, the patient is still complaining of left lower abdominal pain did have some nausea but no vomiting, the patient has been tolerating a clear liquid diet , the patient denies any chest pain shortness of breath or cough Objective - Vital Signs Vital signs: Vital Signs Temp 98.1 F 06/29/22 11:03 Pulse 71 06/29/22 11:03 Resp 18 06/29/22 11:03 BP 147/95 06/29/22 11:03 Pulse Ox 98 06/29/22 11:03 FiO2 Intake & Output 06/28/22 06/29/22 06/29/22 18:59 06:59 18:59 Other: Voiding Method Toilet Toilet # Bowel Movements 0 - Exam GENERAL DESCRIPTION: Middle-aged male lying in bed in no distress RESPIRATORY SYSTEM: Unlabored breathing , decreased breath sounds at bases HEART: S1 S2 regular rate and rhythm , ABDOMEN: Soft , mild distention and tenderness EXTREMITIES: No edema feet - Labs CBC & Chem 7: 06/30/22 08:08 06/30/22 08:08 Labs: Abnormal Lab Results - Last 24 Hours (Table) 06/29/22 06/29/22 Range/Units 05:27 05:27 WBC 16.94 H (4.50-10.00) X 10*3/uL RBC 4.32 L (4.40-5.60) X 10*6/uL Hct 38.8 L (39.6-50.0) % Absolute Nucleated RBC 0.03 H (0.00-0.00) X 10*3/uL Immature Gran # 0.71 H (0.00-0.04) X 10*3/uL Neutrophils # 12.86 H (1.80-7.70) X 10*3/uL Monocytes # 1.14 H (0.20-1.00) X 10*3/uL NRBC/100 WBC Diff 0.2 H (0.0-0.0) /100 WBCS Sodium 136 L (137-145) mmol/L Potassium 3.3 L (3.5-5.1) mmol/L Chloride 93 L (98-107) mmol/L Carbon Dioxide 33 H (22-30) mmol/L BUN 8 L (9-20) mg/dL Glucose 106 H (74-99) mg/dL Calcium 8.3 L (8.4-10.2) mg/dL Microbiology - Last 24 Hours (Table) 06/22/22 14:43 Blood Culture - Final Blood No Growth after 144 hours 06/22/22 14:43 Blood Culture - Final Blood No Growth after 144 hours Assessment and Plan (1) Acute diverticulitis Current Visit: Yes Status: Acute Code(s): K57.92 - DVTRCLI OF INTEST, PART UNSP, W/O PERF OR ABSCESS W/O BLEED SNOMED Code(s): 695158413 (2) Failure of outpatient treatment Current Visit: Yes Status: Acute Code(s): Z78.9 - OTHER SPECIFIED HEALTH STATUS SNOMED Code(s): 677577843 Plan: 1patient presented to hospital with sepsis in this patient did have a fever tachycardia elevated white count source is acute complicated diverticulitis with perforation and will need to cover for the enteric gram-negative both aerobes and anaerobes. 2patient did have slight worsening of his white count repeat CT has been ordered report is currently pending continue with the Zolathan and monitor clinical course closely Time with Patient: Less than 30
--- NOTE | 2022-07-01 08:45 | P.PN ---
Subjective Progress Note Date: 06/30/22 Principal diagnosis: Acute complicated diverticulitis Patient is a 41-year-old male presented to the hospital with abdominal pain with a recent diagnosis of diverticulitis failing outpatient oral Augmentin therapy with repeat CAT scan shows perforation. Patient was taken to the OR 06/29/2022 status post laparotomy and diverting colostomy on today's evaluation that is 06/30/2022, the patient denies any fever or any chills, the patient abdominal pain is currently controlled, complaining of some nausea but no vomiting no chest pain shortness of breath or cough Objective - Vital Signs Vital signs: Vital Signs Temp 97.7 F 06/30/22 06:13 Pulse 87 06/30/22 06:13 Resp 16 06/30/22 06:13 BP 124/82 06/30/22 06:13 Pulse Ox 92 L 06/30/22 06:13 FiO2 Intake & Output 06/29/22 06/30/22 06/30/22 18:59 06:59 18:59 Intake Total 1120 600 Output Total 2130 Balance 1120 -1530 Weight 138.346 kg Intake: IV 900 600 Piperacillin-Tazobactam 3 100 .375 gm In Sodium Chloride 0.9% 100 ml @ 25 mls/hr IVPB Q6H [facility] Rx#: [id number] metroNIDAZOLE-NS PMX 500 100 mg In Saline 1 100ml.bag @ 100 mls/hr IVPB Q6H [facility] Rx#:[id number] Intake, IV Titration 100 Amount Potassium Chloride 10 meq 100 In Water For Injection 1 100ml.bag @ 100 mls/hr IVPB ONCE ONE Rx#: [id number] Oral 120 Output: Gastric Drainage 90 Drainage 80 Right Abdomen 80 Urine 1650 Uretheral (Juárez) 900 Estimated Blood Loss 310 Other: Voiding Method Toilet # Voids 4 # Bowel Movements 0 - Exam GENERAL DESCRIPTION: Middle-aged male lying in bed in no distress RESPIRATORY SYSTEM: Unlabored breathing , decreased breath sounds at bases HEART: S1 S2 regular rate and rhythm , ABDOMEN: Soft , mild tenderness EXTREMITIES: No edema feet - Labs CBC & Chem 7: 06/30/22 08:08 06/30/22 08:08 Assessment and Plan (1) Acute diverticulitis Current Visit: Yes Status: Acute Code(s): K57.92 - DVTRCLI OF INTEST, PART UNSP, W/O PERF OR ABSCESS W/O BLEED SNOMED Code(s): 479210798 (2) Failure of outpatient treatment Current Visit: Yes Status: Acute Code(s): Z78.9 - OTHER SPECIFIED HEALTH STATUS SNOMED Code(s): 602763896 Plan: 1patient presented to hospital with sepsis in this patient did have a fever tachycardia elevated white count source is acute complicated diverticulitis with perforation and will need to cover for the enteric gram-negative both aerobes and anaerobes. 2patient seemed to have failed medical therapy in this patient who is status post laparotomy and diverting colostomy, no OR culture were done 3-patient will continue with the Zosyn and will monitor clinical course closely Time with Patient: Less than 30
[2022-07-01] MEDS: DOCUSATE 100 MG CAP PO SCH ×2 (08:50→19:29)
[2022-07-01] MEDS: SIMETHICONE 40 MG/0.6 ML DROPS 2,000 MG/30 ML BOTTLE PO SCH ×4 (08:50→19:29)
[2022-07-01] MEDS: PANTOPRAZOLE 40 MG/10 ML VIAL IV SCH (08:53)
[2022-07-01 09:03] LABS: Basophils % (A) 0.6 %; Eosinophils # (A) 0.12 X 10*3/uL (0.04-0.35); Eosinophils % (A) 0.7 %; HCT 38.5 % (39.6-50.0); HGB 12.7 g/dL (13.0-17.0); Immature Grans, Automated 2.8 %; Lymphocytes # (A) 1.94 X 10*3/uL (0.90-5.00); Lymphocytes % (A) 10.9 %; MCH 30.9 pg (27.0-32.0); MCV 93.7 fL (80.0-97.0); Mean Platelet Volume 10.2 fL (9.5-12.2); Monocytes # (A) 1.07 X 10*3/uL (0.20-1.00); NRBC Per 100 WBC 0 /100 WBCS (0.0-0.0); Neutrophils # (A) 14.14 X 10*3/uL (1.80-7.70); Platelet Count 477 X 10*3/uL (140-440); RBC 4.11 X 10*6/uL (4.40-5.60); RDW 13.4 % (11.5-14.5); WBC 17.87 X 10*3/uL (4.50-10.00)
--- NOTE | 2022-07-01 09:09 | P.ANPRN ---
Procedure Note - Anesthesia - Nerve Block Performed Bilateral Rectus Abdominis Single Time Out Performed: Yes (1845) Date of Procedure: 07/01/22 Procedure Start Time: 18:46 Procedure Stop Time: 18:51 Location of Patient: Phase I Indication: Acute Post-Operative Pain, Requested by Surgeon Specifically requested for management of pain by DrKevyn: Torsten Lind Sedation Type: Sedate with meaningful contact maintained Preparation: Sterile Prep Position: Supine Catheter: None Needle Types: Pajunk Needle Gauge: 21 Ultrasound used to visualize needle placement: Yes Ultrasound used to observe medication spread: Yes Injectate: 0.5% Ropivacaine (see comment for volume) (20cc each side) Blood Aspirated: No Pain Paresthesia on Injection Noted: No Resistance on Injection: Normal Image Stored and Saved: Yes Events: Uneventful and Well Tolerated
[2022-07-01 09:21] LABS: African American GFR (CKD) 127.7 (60.0-200.0); BUN/Creat Ratio 11.5 Ratio (12.00-20.00); Blood Urea Nitrogen 9.2 mg/dL (9.0-27.0); Calcium 8.1 mg/dL (8.7-10.3); Non-African American GFR(CKD) 110.2 (60.0-200.0); Potassium 3.9 mmol/L (3.5-5.5)
--- NOTE | 2022-07-01 12:23 | P.PN ---
Subjective Progress Note Date: 07/01/22 CHIEF COMPLAINT: Perforated Diverticulitis HISTORY OF PRESENT ILLNESS: Patient is postop day #2 status post sigmoid colectomy with end colostomy for perforated sigmoid diverticulitis. Patient reports that his abdominal pain is less today. Ostomy functioning yet. Denies any nausea. NG tube with 450 mL bilious output. TAMMY drain with 80 ML serosanguineous output. Afebrile. WBC coming down from 22.26-17.87 hemoglobin 12.7 platelet 477 sodium 139 potassium 3.9 creatinine 0.8. Patient was seen by urology due to abnormal right kidney on CAT scan. Patient had some issues with his Juárez catheter this morning. It has been removed. PHYSICAL EXAM: VITAL SIGNS: Reviewed. GENERAL: Well-developed in no acute distress. HEENT: No sclera icterus. Extraocular movements grossly intact. Moist buccal mucosa. Head is atraumatic, normocephalic. ABDOMEN: Soft. Nondistended. Incisional dressing small amount of blood saturation noted on 3 spots. Colostomy on the left side of the abdomen. Stoma pink. Serosanguineous drainage noted in colostomy bag NEUROLOGIC: Alert and oriented. Cranial nerves II through XII grossly intact. ASSESSMENT: 1. Perforated sigmoid diverticulitis status post sigmoid colectomy with end colostomy 2. Leukocytosis PLAN: -Change surgical dressing to ABDs -Continue NG tube for decompression -Keep patient nothing by mouth -Continue IV fluids -Continue IV antibiotics -Continue pain medication as needed -Encouraged patient to increase activity level -Encouraged patient to use incentive spirometer -GI prophylaxis Protonix and DVT prophylaxis subcu heparin Physician Tissue Specialist note has been reviewed by physician. Signing provider agrees with the documented findings, assessment, and plan of care. I have personally seen and examined the patient, reviewed the SOCIAL SERVICES ASSISTANT /PAs history, exam and MDM and agree with the assessment and plan as written. Based on total visit time, I have performed more than 50% of the visit. As above: Patient doing well today. Abdominal pain is about the same may be slightly better. No flatus. Nasogastric tube remains in place. On exam the patient has mild appropriate surgical tenderness. He is distended and may be slightly more than yesterday although patient states that same. Keep nasogastric tube to suction for now. Will discuss with dietary starting TPN. Objective - Vital Signs Vital signs: Vital Signs Temp 98.1 F 07/01/22 11:18 Pulse 81 07/01/22 11:18 Resp 16 07/01/22 11:18 BP 130/89 07/01/22 11:18 Pulse Ox 94 L 07/01/22 11:18 FiO2 Intake & Output 06/30/22 07/01/22 07/01/22 18:59 06:59 18:59 Intake Total 2000 Output Total 1350 1300 1770 Balance -1350 700 -1770 Intake: Intake, IV Titration 2000 Amount ACETAMINOPHEN IV (For NPO 200 ) 1,000 mg In Empty Bag 1 bag @ 400 mls/hr IVPB Q6HR [facility] Rx#:[id number] D5-0.45% NaCl with KCl 1700 20Meq/l 1,000 ml @ 150 mls/hr IV .Q6H40M [facility] Rx# :[id number] Piperacillin-Tazobactam 3 100 .375 gm In Sodium Chloride 0.9% 100 ml @ 25 mls/hr IVPB Q8H [facility] Rx#: [id number] Output: Gastric Drainage 450 Drainage 100 120 Right Abdomen 100 120 Urine 1250 1300 1200 Other: Voiding Method Indwelling Catheter Indwelling Catheter # Voids 1 - Labs CBC & Chem 7: 07/01/22 05:34 07/01/22 05:34 Labs: Abnormal Lab Results - Last 24 Hours (Table) 07/01/22 07/01/22 Range/Units 05:34 05:34 WBC 17.87 H (4.50-10.00) X 10*3/uL RBC 4.11 L (4.40-5.60) X 10*6/uL Hgb 12.7 L (13.0-17.0) g/dL Hct 38.5 L (39.6-50.0) % Plt Count 477 H (140-440) X 10*3/uL Immature Gran # 0.50 H (0.00-0.04) X 10*3/uL Neutrophils # 14.14 H (1.80-7.70) X 10*3/uL Monocytes # 1.07 H (0.20-1.00) X 10*3/uL Carbon Dioxide 31.0 H (20.0-27.5) mmol/L Anion Gap 8.00 L (10.00-18.00) mmol/L BUN/Creatinine Ratio 11.50 L (12.00-20.00) Ratio Glucose 124 H (70-110) mg/dL Calcium 8.1 L (8.7-10.3) mg/dL
[2022-07-01] MEDS: SODIUM CHLORIDE 0.9% 1,000 ML IV SCH (15:34)
[2022-07-02] MEDS: ACETAMINOPHEN IV (For NPO) 1,000 MG in EMPTY BAG 1 BAG IVPB SCH ×4 (00:13→18:12)
[2022-07-02] MEDS: KETOROLAC 15 MG/ML 1 ML VIAL IVP SCH ×3 (00:14→12:19)
[2022-07-02] MEDS: HEPARIN SODIUM,PORCINE/PF 5,000 UNIT/0.5 ML SYRINGE SQ SCH ×2 (00:14→09:41)
[2022-07-02] MEDS: HYDROmorphone 1 MG/ML 1 ML SYRINGE IVP PRN ×8 (01:01→21:49)
[2022-07-02] MEDS: PIPERACILLIN-TAZOBACTAM 3.375 GM in SODIUM CHLORIDE 0.9% 100 ML IVPB SCH ×3 (03:25→19:28)
--- NOTE | 2022-07-02 09:08 | P.PN ---
Progress Note - Text Progress Note Date: 07/02/22 Patient remains resting temporally in bed. He denies any significant pain. He's had no significant output through his colostomy. On exam vital signs are stable. Abdomen soft. Incisions clean dry tach. Status post Cindy procedure for perforated diverticulitis. Patient will continue continue NG tube drainage. We will remove his nasogastric tube once his bowel function has returned.
[2022-07-02] MEDS: DOCUSATE 100 MG CAP PO SCH ×2 (09:31→19:53)
[2022-07-02] MEDS: SIMETHICONE 40 MG/0.6 ML DROPS 2,000 MG/30 ML BOTTLE PO SCH ×4 (09:32→19:53)
[2022-07-02] MEDS: PANTOPRAZOLE 40 MG/10 ML VIAL IV SCH (09:42)
[2022-07-02] MEDS: D5-0.45% NACL WITH KCL 20MEQ/L 1,000 ML IV SCH (10:25)
--- NOTE | 2022-07-02 11:26 | P.PN ---
Subjective Progress Note Date: 06/29/22 Principal diagnosis: Abdominal pain. Patient still not feeling very well, still having abdominal pain. He did not have a bowel movement yet. He is feeling constipated. No nausea or vomiting. Tolerating diet however. Objective - Vital Signs Vital signs: Vital Signs Temp 98.1 F 06/29/22 11:03 Pulse 71 06/29/22 11:03 Resp 18 06/29/22 11:03 BP 147/95 06/29/22 11:03 Pulse Ox 98 06/29/22 11:03 FiO2 Intake & Output 06/28/22 06/29/22 06/29/22 18:59 06:59 18:59 Other: Voiding Method Toilet Toilet # Bowel Movements 0 - Exam Constitutional: No acute distress, conversant, pleasant Eyes:Anicteric sclerae, moist conjunctiva, no lid-lag, PERRLA, ENMT: Oropharynx clear, no erythema, exudates Neck: Supple, FROM, no masses, or JVD, No carotid bruits, No thyromegaly Lungs: Clear to auscultation, Clear to percussion, Normal respiratory effort, no accessory muscle use Cardiovascular: Heart regular in rate and rhythm, No murmurs, gallops, or rubs, No peripheral edema Abdominal: Soft, diffuse abdominal tenderness, no guarding, rebound or rigidity, Normoactive bowel sounds, No hepatomegaly, No splenomegaly, No palpable mass Skin: Normal temperature, tone, texture, turgor, no induration, No subcutaneous nodules, No rash, lesions, No ulcers Extremities: No digital cyanosis, No clubbing, Pedal pulses intact and symmetric al, Radial pulses intact and symmetrical, No calf tenderness Psychiatric: Alert and oriented to person, place and time, appropriate affect, intact judgement Neuro: Muscles Strength 5/5 in all 4 extremities, Sensation to light touch grossly present throughout, Cranial nerves II-XII grossly intact, no focal sensory deficits - Labs CBC & Chem 7: 07/01/22 05:34 07/01/22 05:34 Labs: Abnormal Lab Results - Last 24 Hours (Table) 06/29/22 06/29/22 Range/Units 05:27 05:27 WBC 16.94 H (4.50-10.00) X 10*3/uL RBC 4.32 L (4.40-5.60) X 10*6/uL Hct 38.8 L (39.6-50.0) % Absolute Nucleated RBC 0.03 H (0.00-0.00) X 10*3/uL Immature Gran # 0.71 H (0.00-0.04) X 10*3/uL Neutrophils # 12.86 H (1.80-7.70) X 10*3/uL Monocytes # 1.14 H (0.20-1.00) X 10*3/uL NRBC/100 WBC Diff 0.2 H (0.0-0.0) /100 WBCS Sodium 136 L (137-145) mmol/L Potassium 3.3 L (3.5-5.1) mmol/L Chloride 93 L (98-107) mmol/L Carbon Dioxide 33 H (22-30) mmol/L BUN 8 L (9-20) mg/dL Glucose 106 H (74-99) mg/dL Calcium 8.3 L (8.4-10.2) mg/dL Microbiology - Last 24 Hours (Table) 06/22/22 14:43 Blood Culture - Final Blood No Growth after 144 hours 06/22/22 14:43 Blood Culture - Final Blood No Growth after 144 hours Assessment and Plan Plan: #Sepsis #Perforated sigmoid diverticulitis with pneumoperitoneum with worsening leukocytosis On Zosyn and Flagyl. Scheduled Tylenol and Toradol IV, Dilaudid IV as needed for pain management. Blood cultures are negative IVF Surgery on board. Worsening leukocytosis d/w infectious disease will obtain CT abd and pelvis to follow up #Hypokalemia #Transaminitis #Morbid obesity Replace K and follow Monitor LFTs
--- NOTE | 2022-07-02 11:33 | P.PN ---
Subjective Progress Note Date: 06/30/22 Principal diagnosis: Abdominal pain. Due to worsening wbc repeat CT abdomen obtained and that showed worsening perforation of diverticulitis. He was taken to the OR for sigmoid colectomy with end colostomy. Currently doing well, pain is controlled. Objective - Vital Signs Vital signs: Vital Signs Temp 98.3 F 07/02/22 03:45 Pulse 85 07/02/22 03:45 Resp 18 07/02/22 03:45 BP 128/85 07/02/22 03:45 Pulse Ox 95 07/02/22 03:45 FiO2 Intake & Output 07/01/22 07/02/22 07/02/22 18:59 06:59 18:59 Intake Total 2300 1250 Output Total 2840 1780 1340 Balance -540 -530 -1340 Intake: Intake, IV Titration 2300 1250 Amount ACETAMINOPHEN IV (For NPO 200 200 ) 1,000 mg In Empty Bag 1 bag @ 400 mls/hr IVPB Q6HR [facility] Rx#:[id number] D5-0.45% NaCl with KCl 1660 950 20Meq/l 1,000 ml @ 80 mls /hr IV .[id number] [facility] Rx#: [id number] Piperacillin-Tazobactam 3 200 100 .375 gm In Sodium Chloride 0.9% 100 ml @ 25 mls/hr IVPB Q8H [facility] Rx#: [id number] Sodium Chloride 0.9% 1, 240 000 ml @ 0 mls/hr IV .[facility] Rx#:[id number] Output: Gastric Drainage 700 350 Drainage 140 80 40 Right Abdomen 140 80 40 Urine 2000 1350 1100 Stool 100 Oral Regurgitation 100 Other: Voiding Method Indwelling Catheter Indwelling Catheter # Voids 1 2 - Exam Constitutional: No acute distress, conversant, pleasant Eyes:Anicteric sclerae, moist conjunctiva, no lid-lag, PERRLA, ENMT: Oropharynx clear, no erythema, exudates Neck: Supple, FROM, no masses, or JVD, No carotid bruits, No thyromegaly Lungs: Clear to auscultation, Clear to percussion, Normal respiratory effort, no accessory muscle use Cardiovascular: Heart regular in rate and rhythm, No murmurs, gallops, or rubs, No peripheral edema Abdominal: Soft, diffuse abdominal tenderness, no guarding, rebound or rigidity, Normoactive bowel sounds, No hepatomegaly, No splenomegaly, No palpable mass Skin: Normal temperature, tone, texture, turgor, no induration, No subcutaneous nodules, No rash, lesions, No ulcers Extremities: No digital cyanosis, No clubbing, Pedal pulses intact and symmetrical, Radial pulses intact and symmetrical, No calf tenderness Psychiatric: Alert and oriented to person, place and time, appropriate affect, intact judgement Neuro: Muscles Strength 5/5 in all 4 extremities, Sensation to light touch grossly present throughout, Cranial nerves II-XII grossly intact, no focal sensory deficits - Labs CBC & Chem 7: 07/01/22 05:34 07/01/22 05:34 Assessment and Plan Plan: #Sepsis #Perforated sigmoid diverticulitis with pneumoperitoneum with worsening leukocytosis On Zosyn and Flagyl. Scheduled Tylenol and Toradol IV, Dilaudid IV as needed for pain management. Blood cultures are negative IVF Surgery on board. Worsening leukocytosis prompted repeat CT abd and pelvis which showed worsening perforation of the sigmoid diverticulitis, Had Sigmoid colectomy with end colostomy on 06/29 Currently with NG tube and colostomy bag. Awaiting bowel function Impaired perfusion to the right upper pole shown on CT Seen by urology No further management needed, view likely due to the extension of the infection into the retroperitoneal space. Resolved issues #Hypokalemia #Transaminitis #Morbid obesity Outpatient weight loss #DVT prophylaxis Lovenox Anticipated discharge home in 3-4 days
--- NOTE | 2022-07-02 11:34 | P.PN ---
Subjective Progress Note Date: 07/01/22 Principal diagnosis: Abdominal pain. He states that pain is controlled. Not passing gas yet. No nausea, NG tube is in. Objective - Vital Signs Vital signs: Vital Signs Temp 98.3 F 07/02/22 03:45 Pulse 85 07/02/22 03:45 Resp 18 07/02/22 03:45 BP 128/85 07/02/22 03:45 Pulse Ox 95 07/02/22 03:45 FiO2 Intake & Output 07/01/22 07/02/22 07/02/22 18:59 06:59 18:59 Intake Total 2300 1250 Output Total 2840 1780 1340 Balance -540 -530 -1340 Intake: Intake, IV Titration 2300 1250 Amount ACETAMINOPHEN IV (For NPO 200 200 ) 1,000 mg In Empty Bag 1 bag @ 400 mls/hr IVPB Q6HR [facility] Rx#:[id number] D5-0.45% NaCl with KCl 1660 950 20Meq/l 1,000 ml @ 80 mls /hr IV .[id number] [facility] Rx#: [id number] Piperacillin-Tazobactam 3 200 100 .375 gm In Sodium Chloride 0.9% 100 ml @ 25 mls/hr IVPB Q8H [facility] Rx#: [id number] Sodium Chloride 0.9% 1, 240 000 ml @ 0 mls/hr IV .[facility] Rx#:[id number] Output: Gastric Drainage 700 350 Drainage 140 80 40 Right Abdomen 140 80 40 Urine 2000 1350 1100 Stool 100 Oral Regurgitation 100 Other: Voiding Method Indwelling Catheter Indwelling Catheter # Voids 1 2 - Exam Constitutional: No acute distress, conversant, pleasant Eyes:Anicteric sclerae, moist conjunctiva, no lid-lag, PERRLA, ENMT: Oropharynx clear, no erythema, exudates Neck: Supple, FROM, no masses, or JVD, No carotid bruits, No thyromegaly Lungs: Clear to auscultation, Clear to percussion, Normal respiratory effort, no accessory muscle use Cardiovascular: Heart regular in rate and rhythm, No murmurs, gallops, or rubs, No peripheral edema Abdominal: Soft, diffuse abdominal tenderness, no guarding, rebound or rigidity, Normoactive bowel sounds, No hepatomegaly, No splenomegaly, No palpable mass Skin: Normal temperature, tone, texture, turgor, no induration, No subcutaneous nodules, No rash, lesions, No ulcers Extremities: No digital cyanosis, No clubbing, Pedal pulses intact and symmetrical, Radial pulses intact and symmetrical, No calf tenderness Psychiatric: Alert and oriented to person, place and time, appropriate affect, intact judgement Neuro: Muscles Strength 5/5 in all 4 extremities, Sensation to light touch grossly present throughout, Cranial nerves II-XII grossly intact, no focal sensory deficits - Labs CBC & Chem 7: 07/01/22 05:34 07/01/22 05:34 Assessment and Plan Plan: #Sepsis #Perforated sigmoid diverticulitis with pneumoperitoneum with worsening leukocytosis On Zosyn and Flagyl. Scheduled Tylenol and Toradol IV, Dilaudid IV as needed for pain management. Blood cultures are negative IVF Surgery on board. Worsening leukocytosis prompted repeat CT abd and pelvis which showed worsening perforation of the sigmoid diverticulitis, Had Sigmoid colectomy with end colostomy on 06/29 Currently with NG tube and colostomy bag. Awaiting bowel function Impaired perfusion to the right upper pole shown on CT Seen by urology No further management needed, view likely due to the extension of the infection into the retroperitoneal space. Resolved issues #Hypokalemia #Transaminitis #Morbid obesity Outpatient weight loss #DVT prophylaxis Lovenox Anticipated discharge home in 3-4 days
--- NOTE | 2022-07-02 14:44 | P.PN ---
Subjective Progress Note Date: 07/02/22 Principal diagnosis: Abdominal pain. He denies any significant pain. He's had no significant output through his colostomy. Objective - Vital Signs Vital signs: Vital Signs Temp 98.4 F 07/02/22 11:31 Pulse 81 07/02/22 11:31 Resp 16 07/02/22 11:31 BP 146/90 07/02/22 11:31 Pulse Ox 95 07/02/22 11:31 FiO2 Intake & Output 07/01/22 07/02/22 07/02/22 18:59 06:59 18:59 Intake Total 2300 1250 Output Total 2840 1780 1340 Balance -540 -530 -1340 Intake: Intake, IV Titration 2300 1250 Amount ACETAMINOPHEN IV (For NPO 200 200 ) 1,000 mg In Empty Bag 1 bag @ 400 mls/hr IVPB Q6HR [facility] Rx#:[id number] D5-0.45% NaCl with KCl 1660 950 20Meq/l 1,000 ml @ 80 mls /hr IV .[id number] [facility] Rx#: [id number] Piperacillin-Tazobactam 3 200 100 .375 gm In Sodium Chloride 0.9% 100 ml @ 25 mls/hr IVPB Q8H [facility] Rx#: [id number] Sodium Chloride 0.9% 1, 240 000 ml @ 0 mls/hr IV .[facility] Rx#:[id number] Output: Gastric Drainage 700 350 Drainage 140 80 40 Right Abdomen 140 80 40 Urine 2000 1350 1100 Stool 100 Oral Regurgitation 100 Other: Voiding Method Indwelling Catheter Indwelling Catheter Indwelling Catheter # Voids 1 2 - Exam Constitutional: No acute distress, conversant, pleasant Eyes:Anicteric sclerae, moist conjunctiva, no lid-lag, PERRLA, ENMT: Oropharynx clear, no erythema, exudates Neck: Supple, FROM, no masses, or JVD, No carotid bruits, No thyromegaly Lungs: Clear to auscultation, Clear to percussion, Normal respiratory effort, no accessory muscle use Cardiovascular: Heart regular in rate and rhythm, No murmurs, gallops, or rubs, No peripheral edema Abdominal: Soft, diffuse abdominal tenderness, no guarding, rebound or rigidity, Normoactive bowel sounds, No hepatomegaly, No splenomegaly, No palpable mass Skin: Normal temperature, tone, texture, turgor, no induration, No subcutaneous nodules, No rash, lesions, No ulcers Extremities: No digital cyanosis, No clubbing, Pedal pulses intact and symmetrical, Radial pulses intact and symmetrical, No calf tenderness Psychiatric: Alert and oriented to person, place and time, appropriate affect, intact judgement Neuro: Muscles Strength 5/5 in all 4 extremities, Sensation to light touch grossly present throughout, Cranial nerves II-XII grossly intact, no focal sensory deficits - Labs CBC & Chem 7: 07/01/22 05:34 07/01/22 05:34 Assessment and Plan Plan: #Sepsis #Perforated sigmoid diverticulitis with pneumoperitoneum with worsening leukocytosis On Zosyn and Flagyl. Scheduled Tylenol and Toradol IV, Dilaudid IV as needed for pain management. Blood cultures are negative IVF Surgery on board. Worsening leukocytosis prompted repeat CT abd and pelvis which showed worsening perforation of the sigmoid diverticulitis, Had Sigmoid colectomy with end colostomy on 06/29 Currently with NG tube and colostomy bag. Awaiting bowel function Impaired perfusion to the right upper pole shown on CT Seen by urology No further management needed, view likely due to the extension of the infection into the retroperitoneal space. Resolved issues #Hypokalemia #Transaminitis #Morbid obesity Outpatient weight loss #DVT prophylaxis Lovenox Anticipated discharge home in 3-4 days
[2022-07-02 16:46] LABS: Ionized Calcium 4.9 mg/dL (4.5-5.3)
[2022-07-02 16:55] LABS: African American GFR (CKD) >90 (>60 ml/min/1.73 sqM); Anion Gap 11 mmol/L; Blood Urea Nitrogen 12 mg/dL (9-20); Calcium 8.9 mg/dL (8.4-10.2); Carbon Dioxide 28 mmol/L (22-30); Chloride 97 mmol/L (98-107); Glucose 104 mg/dL (74-99); Magnesium 2.1 mg/dL (1.6-2.3); Non-African American GFR(CKD) >90 (>60 ml/min/1.73 sqM); Phosphorus 3.2 mg/dL (2.5-4.5); Potassium 4.1 mmol/L (3.5-5.1); Sodium 136 mmol/L (137-145)
[2022-07-02] MEDS: SODIUM CHLORIDE 0.9% 1,000 ML IV SCH (19:52)
[2022-07-02] MEDS ORDERED: MVI, ADULT NO.4 WITH VIT K 10 ML, TRACE (CONC-1ML/DOSE) 1 ML in AMINO ACID 5%-D20W+LYTE... IV SCH ×3 (22:00)
[2022-07-03] MEDS: HYDROmorphone 1 MG/ML 1 ML SYRINGE IVP PRN ×7 (00:18→21:06)
--- NOTE | 2022-07-03 00:30 | P.PN ---
Subjective Progress Note Date: 07/01/22 Principal diagnosis: Acute complicated diverticulitis Patient is a 41-year-old male presented to the hospital with abdominal pain with a recent diagnosis of diverticulitis failing outpatient oral Augmentin therapy with repeat CAT scan shows perforation. Patient was taken to the OR 06/29/2022 status post laparotomy and diverting colostomy on today's evaluation that is 07/01/2022, the patient continues to be afebrile, the patient abdominal pain is controlled with the current medication, patient did have some nausea but no vomiting no chest pain shortness of breath or cough Objective - Vital Signs Vital signs: Vital Signs Temp 98.1 F 07/01/22 11:18 Pulse 81 07/01/22 11:18 Resp 16 07/01/22 11:18 BP 130/89 07/01/22 11:18 Pulse Ox 94 L 07/01/22 11:18 FiO2 Intake & Output 06/30/22 07/01/22 07/01/22 18:59 06:59 18:59 Intake Total 1999 Output Total 1350 1300 1770 Balance -1350 700 -1770 Intake: Intake, IV Titration 2000 Amount ACETAMINOPHEN IV (For NPO 200 ) 1,000 mg In Empty Bag 1 bag @ 400 mls/hr IVPB Q6HR [facility] Rx#:[id number] D5-0.45% NaCl with KCl 1700 20Meq/l 1,000 ml @ 150 mls/hr IV .[id number] [facility] Rx# :[id number] Piperacillin-Tazobactam 3 100 .375 gm In Sodium Chloride 0.9% 100 ml @ 25 mls/hr IVPB Q8H [facility] Rx#: [id number] Output: Gastric Drainage 450 Drainage 100 120 Right Abdomen 100 120 Urine 1250 1300 1200 Other: Voiding Method Indwelling Catheter Indwelling Catheter # Voids 1 - Exam GENERAL DESCRIPTION: Middle-aged male lying in bed in no distress RESPIRATORY SYSTEM: Unlabored breathing , decreased breath sounds at bases HEART: S1 S2 regular rate and rhythm , ABDOMEN: Soft , mild tenderness EXTREMITIES: No edema feet - Labs CBC & Chem 7: 07/01/22 05:34 07/02/22 16:26 Labs: Abnormal Lab Results - Last 24 Hours (Table) 07/01/22 07/01/22 Range/Units 05:34 05:34 WBC 17.87 H (4.50-10.00) X 10*3/uL RBC 4.11 L (4.40-5.60) X 10*6/uL Hgb 12.7 L (13.0-17.0) g/dL Hct 38.5 L (39.6-50.0) % Plt Count 477 H (140-440) X 10*3/uL Immature Gran # 0.50 H (0.00-0.04) X 10*3/uL Neutrophils # 14.14 H (1.80-7.70) X 10*3/uL Monocytes # 1.07 H (0.20-1.00) X 10*3/uL Carbon Dioxide 31.0 H (20.0-27.5) mmol/L Anion Gap 8.00 L (10.00-18.00) mmol/L BUN/Creatinine Ratio 11.50 L (12.00-20.00) Ratio Glucose 124 H (70-110) mg/dL Calcium 8.1 L (8.7-10.3) mg/dL Assessment and Plan (1) Acute diverticulitis Current Visit: Yes Status: Acute Code(s): K57.92 - DVTRCLI OF INTEST, PART UNSP, W/O PERF OR ABSCESS W/O BLEED SNOMED Code(s): 173802363 (2) Failure of outpatient treatment Current Visit: Yes Status: Acute Code(s): Z78.9 - OTHER SPECIFIED HEALTH STATUS SNOMED Code(s): 447727215 Plan: 1patient presented to hospital with sepsis in this patient did have a fever tachycardia elevated white count source is acute complicated diverticulitis with perforation and will need to cover for the enteric gram-negative both aerobes and anaerobes. 2patient seemed to have failed medical therapy in this patient who is status post laparotomy and diverting colostomy, no OR culture were done 3-patient seemed to showing clinical improvement and will continue with the Zosyn and will monitor clinical course closely Time with Patient: Less than 30
--- NOTE | 2022-07-03 00:31 | P.PN ---
Subjective Progress Note Date: 06/25/22 Principal diagnosis: Acute complicated diverticulitis Patient is a 41-year-old male presented to the hospital with abdominal pain with a recent diagnosis of diverticulitis failing outpatient oral Augmentin therapy with repeat CAT scan shows perforation. Patient was taken to the OR 06/29/2022 status post laparotomy and diverting colostomy on today's evaluation that is 07/02/2022, the patient remains to be afebrile, the patient abdominal pain is controlled with the current medication, patient denies nausea, vomiting no chest pain shortness of breath or cough Objective - Vital Signs Vital signs: Vital Signs Temp 98.4 F 07/02/22 11:31 Pulse 81 07/02/22 11:31 Resp 16 07/02/22 11:31 BP 146/90 07/02/22 11:31 Pulse Ox 95 07/02/22 11:31 FiO2 Intake & Output 07/01/22 07/02/22 07/02/22 18:59 06:59 18:59 Intake Total 2300 1250 Output Total 2840 1780 1340 Balance -540 -530 -1340 Intake: Intake, IV Titration 2300 1250 Amount ACETAMINOPHEN IV (For NPO 200 200 ) 1,000 mg In Empty Bag 1 bag @ 400 mls/hr IVPB Q6HR [facility] Rx#:[id number] D5-0.45% NaCl with KCl 1660 950 20Meq/l 1,000 ml @ 80 mls /hr IV .[id number] [facility] Rx#: [id number] Piperacillin-Tazobactam 3 200 100 .375 gm In Sodium Chloride 0.9% 100 ml @ 25 mls/hr IVPB Q8H [facility] Rx#: [id number] Sodium Chloride 0.9% 1, 240 000 ml @ 0 mls/hr IV .[facility] Rx#:[id number] Output: Gastric Drainage 700 350 Drainage 140 80 40 Right Abdomen 140 80 40 Urine 2000 1350 1100 Stool 100 Oral Regurgitation 100 Other: Voiding Method Indwelling Catheter Indwelling Catheter Indwelling Catheter # Voids 1 2 - Exam GENERAL DESCRIPTION: Middle-aged male lying in bed in no distress RESPIRATORY SYSTEM: Unlabored breathing , decreased breath sounds at bases HEART: S1 S2 regular rate and rhythm , ABDOMEN: Soft , no tenderness EXTREMITIES: No edema feet - Labs CBC & Chem 7: 07/01/22 05:34 07/02/22 16:26 Assessment and Plan (1) Acute diverticulitis Current Visit: Yes Status: Acute Code(s): K57.92 - DVTRCLI OF INTEST, PART UNSP, W/O PERF OR ABSCESS W/O BLEED SNOMED Code(s): 442632679 (2) Failure of outpatient treatment Current Visit: Yes Status: Acute Code(s): Z78.9 - OTHER SPECIFIED HEALTH STATUS SNOMED Code(s): 142788981 Plan: 1patient presented to hospital with sepsis in this patient did have a fever tachycardia elevated white count source is acute complicated diverticulitis with perforation and will need to cover for the enteric gram-negative both aerobes and anaerobes. 2patient seemed to have failed medical therapy in this patient who is status p ost laparotomy and diverting colostomy, no OR culture were done 3-patient seemed to showing clinical improvement and white count is trending down, the patient will continue with the Zosyn and will monitor clinical course closely Time with Patient: Less than 30
[2022-07-03] MEDS: D5-0.45% NACL WITH KCL 20MEQ/L 1,000 ML IV SCH ×2 (03:36→13:21)
[2022-07-03] MEDS: PIPERACILLIN-TAZOBACTAM 3.375 GM in SODIUM CHLORIDE 0.9% 100 ML IVPB SCH ×3 (04:07→19:17)
[2022-07-03] MEDS: PANTOPRAZOLE 40 MG/10 ML VIAL IV SCH (08:13)
[2022-07-03] MEDS: SIMETHICONE 40 MG/0.6 ML DROPS 2,000 MG/30 ML BOTTLE PO SCH ×4 (08:13→21:09)
[2022-07-03] MEDS: DOCUSATE 100 MG CAP PO SCH ×2 (08:13→19:18)
[2022-07-03] MEDS: ENOXAPARIN 40 MG/0.4 ML SYRINGE SQ SCH (08:13)
[2022-07-03] MEDS: ONDANSETRON 4 MG/2 ML VIAL IVP PRN (08:14)
[2022-07-03 09:07] LABS: Basophils # (A) 0.12 X 10*3/uL (0.00-0.10); Basophils % (A) 0.7 %; Eosinophils # (A) 0.36 X 10*3/uL (0.04-0.35); Eosinophils % (A) 2.1 %; HCT 38.8 % (39.6-50.0); Immature Grans, Automated 2.2 %; Lymphocytes # (A) 1.53 X 10*3/uL (0.90-5.00); MCH 30.6 pg (27.0-32.0); MCHC 33.5 g/dL (32.0-37.0); MCV 91.3 fL (80.0-97.0); Mean Platelet Volume 9.9 fL (9.5-12.2); Monocytes # (A) 0.82 X 10*3/uL (0.20-1.00); Monocytes % (A) 4.8 %; NRBC Per 100 WBC 0 /100 WBCS (0.0-0.0); Neutrophils # (A) 13.82 X 10*3/uL (1.80-7.70); Neutrophils % (A) 81.2 %; Platelet Count 563 X 10*3/uL (140-440); RBC 4.25 X 10*6/uL (4.40-5.60); RDW 13.3 % (11.5-14.5); WBC 17.02 X 10*3/uL (4.50-10.00)
[2022-07-03 09:16] LABS: African American GFR (CKD) 121.7 (60.0-200.0); Albumin 3.5 g/dL (3.8-4.9); Albumin/Globulin Ratio 1.35 (1.60-3.17); Anion Gap 7.3 mmol/L (10.00-18.00); BUN/Creat Ratio 13.11 Ratio (12.00-20.00); Blood Urea Nitrogen 11.8 mg/dL (9.0-27.0); Calcium 8.8 mg/dL (8.7-10.3); Carbon Dioxide 29.7 mmol/L (20.0-27.5); Globulin 2.6 g/dL (1.6-3.3); Magnesium 2.1 mg/dL (1.5-2.4); Phosphorus 3.9 mg/dL (2.4-5.1); Total Bilirubin 0.4 mg/dL (0.30-1.20); Total Protein 6.1 g/dL (6.2-8.2)
--- NOTE | 2022-07-03 10:36 | P.PN ---
Progress Note - Text Progress Note Date: 07/03/22 Patient feels better today. He's had some output through his colostomy. On exam vital signs are stable. Abdomen soft. There is liquid brown stools colostomy. Patient will have his nasogastric tube removed. We'll start on clear liquids.
[2022-07-03 12:06] LABS: Glucose,Whole Blood 117 mg/dL (70-110)
--- NOTE | 2022-07-03 12:09 | P.PN ---
Subjective Progress Note Date: 07/03/22 Principal diagnosis: Abdominal pain. Patient states that he had a rough night last night because of worsening abdominal pain, he was treated with IV pain medications, his pain currently under control. He told me that he is starting to pass some flatus. No nausea or vomiting. No fevers. Objective - Vital Signs Vital signs: Vital Signs Temp 98.3 F 07/03/22 04:13 Pulse 89 07/03/22 04:13 Resp 18 07/03/22 04:13 BP 132/88 07/03/22 04:13 Pulse Ox 94 L 07/03/22 04:13 FiO2 Intake & Output 07/02/22 07/03/22 07/03/22 18:59 06:59 18:59 Intake Total 960 580 Output Total 1380 1490 Balance -420 -910 Weight 138.346 kg Intake: Intake, IV Titration 960 580 Amount D5-0.45% NaCl with KCl 960 20Meq/l 1,000 ml @ 80 mls /hr IV .[id number] [facility] Rx#: [id number] Lactated Ringers 1,000 ml 240 @ 0 mls/hr IV .[facility] Rx#:[id number] Mvi, Adult No.4 with Vit 240 K 10 ml Trace (Conc-1Ml/ Dose) 1 ml In Amino Acid 5%-D20w+Lytes*E* 1,000 ml @ 30 mls/hr IV .Q24H [facility] Rx#:[id number] Piperacillin-Tazobactam 3 100 .375 gm In Sodium Chloride 0.9% 100 ml @ 25 mls/hr IVPB Q8H [facility] Rx#: [id number] Output: Gastric Drainage 650 Drainage 80 15 Right Abdomen 80 15 Urine 1100 725 Stool 100 100 Oral Regurgitation 100 Other: Voiding Method Indwelling Catheter Indwelling Catheter Urinal # Voids 6 - Exam Constitutional: No acute distress, conversant, pleasant Eyes:Anicteric sclerae, moist conjunctiva, no lid-lag, PERRLA, ENMT: Oropharynx clear, no erythema, exudates Neck: Supple, FROM, no masses, or JVD, No carotid bruits, No thyromegaly Lungs: Clear to auscultation, Clear to percussion, Normal respiratory effort, no accessory muscle use Cardiovascular: Heart regular in rate and rhythm, No murmurs, gallops, or rubs, No peripheral edema Abdominal: Soft, diffuse abdominal tenderness, no guarding, rebound or rigidity, Normoactive bowel sounds, No hepatomegaly, No splenomegaly, No palpable mass Skin: Normal temperature, tone, texture, turgor, no induration, No subcutaneous nodules, No rash, lesions, No ulcers Extremities: No digital cyanosis, No clubbing, Pedal pulses intact and symmetrical, Radial pulses intact and symmetrical, No calf tenderness Psychiatric: Alert and oriented to person, place and time, appropriate affect, intact judgement Neuro: Muscles Strength 5/5 in all 4 extremities, Sensation to light touch grossly present throughout, Cranial nerves II-XII grossly intact, no focal sensory deficits - Labs CBC & Chem 7: 07/03/22 06:06 07/03/22 06:06 Labs: Abnormal Lab Results - Last 24 Hours (Table) 07/02/22 07/03/22 07/03/22 Range/Units 16:26 06:06 06:06 WBC 17.02 H (4.50-10.00) X 10*3/uL RBC 4.25 L (4.40-5.60) X 10*6/uL Hct 38.8 L (39.6-50.0) % Plt Count 563 H (140-440) X 10*3/uL Immature Gran # 0.37 H (0.00-0.04) X 10*3/uL Neutrophils # 13.82 H (1.80-7.70) X 10*3/uL Eosinophils # 0.36 H (0.04-0.35) X 10*3/uL Basophils # 0.12 H (0.00-0.10) X 10*3/uL Sodium 136 L (137-145) mmol/L Chloride 97 L (98-107) mmol/L Carbon Dioxide 29.7 H (20.0-27.5) mmol/L Anion Gap 7.30 L (10.00-18.00) mmol/L Glucose 104 H 121 H (74-99) mg/dL Total Protein 6.1 L (6.2-8.2) g/dL Albumin 3.5 L (3.8-4.9) g/dL Albumin/Globulin Ratio 1.35 L (1.60-3.17) g/dL Triglycerides 197.00 H (0.00-149.00) mg/dL Assessment and Plan Plan: #Sepsis #Perforated sigmoid diverticulitis with pneumoperitoneum with worsening leukocytosis On Zosyn Scheduled Tylenol and Toradol IV, Dilaudid IV as needed for pain management. Blood cultures are negative IVF Surgery on board. Worsening leukocytosis prompted repeat CT abd and pelvis which showed worsening perforation of the sigmoid diverticulitis, Had Sigmoid colectomy with end colostomy on 06/29 Post op NG tube and colostomy bag were placed. Bowel function seems to be starting to come back, NG to be removed today according to surgery, start clears. Impaired perfusion to the right upper pole shown on CT Seen by urology No further management needed, view likely due to the extension of the infection into the retroperitoneal space. Resolved issues #Hypokalemia #Transaminitis #Morbid obesity Outpatient weight loss #DVT prophylaxis Lovenox #Weakness PT/OT Anticipated discharge home in 2-3 days
[2022-07-03] MEDS ORDERED: HYDROmorphone 0.5 MG/0.5 ML SYRINGE IVP PRN (12:11)
[2022-07-03] MEDS: SODIUM CHLORIDE 0.9% 1,000 ML IV SCH (17:10)
[2022-07-03] MEDS ORDERED: FAT EMULSION 20% 500 ML in EMPTY BAG 1 BAG IV SCH (18:00)
[2022-07-03 18:14] LABS: Glucose,Whole Blood 111 mg/dL (70-110)
[2022-07-03] MEDS: 1: MVI, ADULT NO.4 WITH VIT K 10 ML, TRACE (CONC-1ML/DOSE) 1 ML in AMINO ACID 5%-D20W+LY IV SCH ×3 (21:59)
[2022-07-03 23:42] LABS: Glucose,Whole Blood 158 mg/dL (70-110)
[2022-07-04] MEDS: HYDROmorphone 1 MG/ML 1 ML SYRINGE IVP PRN ×6 (00:03→19:31)
[2022-07-04] MEDS: D5-0.45% NACL WITH KCL 20MEQ/L 1,000 ML IV SCH ×2 (02:32→17:00)
[2022-07-04] MEDS: PIPERACILLIN-TAZOBACTAM 3.375 GM in SODIUM CHLORIDE 0.9% 100 ML IVPB SCH ×3 (03:07→19:30)
[2022-07-04 05:58] LABS: Glucose,Whole Blood 142 mg/dL (70-110)
[2022-07-04] MEDS: PANTOPRAZOLE 40 MG/10 ML VIAL IV SCH (09:09)
[2022-07-04] MEDS: 1: MVI, ADULT NO.4 WITH VIT K 10 ML, TRACE (CONC-1ML/DOSE) 1 ML in AMINO ACID 5%-D20W+LY IV SCH ×6 (09:09→19:32)
[2022-07-04] MEDS: DOCUSATE 100 MG CAP PO SCH ×2 (09:09→20:25)
[2022-07-04] MEDS: ENOXAPARIN 40 MG/0.4 ML SYRINGE SQ SCH (09:09)
[2022-07-04] MEDS: SIMETHICONE 40 MG/0.6 ML DROPS 2,000 MG/30 ML BOTTLE PO SCH ×4 (09:11→20:21)
[2022-07-04 09:39] LABS: Basophils # (A) 0.13 X 10*3/uL (0.00-0.10); Basophils % (A) 0.8 %; Eosinophils # (A) 0.39 X 10*3/uL (0.04-0.35); Eosinophils % (A) 2.3 %; HCT 38.9 % (39.6-50.0); HGB 13.1 g/dL (13.0-17.0); Immature Grans, Automated 2.5 %; Lymphocytes # (A) 1.39 X 10*3/uL (0.90-5.00); MCH 31.1 pg (27.0-32.0); MCHC 33.7 g/dL (32.0-37.0); MCV 92.4 fL (80.0-97.0); Monocytes # (A) 0.88 X 10*3/uL (0.20-1.00); Monocytes % (A) 5.1 %; NRBC Per 100 WBC 0 /100 WBCS (0.0-0.0); Neutrophils # (A) 14.11 X 10*3/uL (1.80-7.70); Neutrophils % (A) 81.3 %; Platelet Count 544 X 10*3/uL (140-440); RBC 4.21 X 10*6/uL (4.40-5.60); RDW 13.3 % (11.5-14.5); WBC 17.33 X 10*3/uL (4.50-10.00)
[2022-07-04 09:59] LABS: African American GFR (CKD) 121.7 (60.0-200.0); Albumin 3.6 g/dL (3.8-4.9); Albumin/Globulin Ratio 1.38 (1.60-3.17); Anion Gap 12.5 mmol/L (10.00-18.00); Blood Urea Nitrogen 12.6 mg/dL (9.0-27.0); Calcium 8.9 mg/dL (8.7-10.3); Carbon Dioxide 26.5 mmol/L (20.0-27.5); Globulin 2.6 g/dL (1.6-3.3); Magnesium 2.4 mg/dL (1.5-2.4); Phosphorus 4.1 mg/dL (2.4-5.1); Potassium 4.1 mmol/L (3.5-5.5); Total Bilirubin 0.3 mg/dL (0.30-1.20); Total Protein 6.2 g/dL (6.2-8.2)
[2022-07-04 11:28] LABS: Glucose,Whole Blood 144 mg/dL (70-110)
--- NOTE | 2022-07-04 11:32 | P.PN ---
Subjective Progress Note Date: 07/03/22 Principal diagnosis: Acute complicated diverticulitis Patient is a 41-year-old male presented to the hospital with abdominal pain with a recent diagnosis of diverticulitis failing outpatient oral Augmentin therapy with repeat CAT scan shows perforation. Patient was taken to the OR 06/29/2022 status post laparotomy and diverting colostomy on today's evaluation that is 07/03/2022, the patient continues to be afebrile, the patient abdominal pain is controlled , the patient is breathing comfortably on room air, patient denies nausea, vomiting no chest pain shortness of breath or cough Objective - Vital Signs Vital signs: Vital Signs Temp 98.7 F 07/03/22 11:19 Pulse 78 07/03/22 11:19 Resp 16 07/03/22 11:19 BP 130/89 07/03/22 11:19 Pulse Ox 94 L 07/03/22 11:19 FiO2 Intake & Output 07/02/22 07/03/22 07/03/22 18:59 06:59 18:59 Intake Total 960 580 Output Total 1380 1490 Balance -420 -910 Weight 138.346 kg Intake: Intake, IV Titration 960 580 Amount D5-0.45% NaCl with KCl 960 20Meq/l 1,000 ml @ 80 mls /hr IV .[id number] [facility] Rx#: [id number] Lactated Ringers 1,000 ml 240 @ 0 mls/hr IV .[facility] Rx#:[id number] Mvi, Adult No.4 with Vit 240 K 10 ml Trace (Conc-1Ml/ Dose) 1 ml In Amino Acid 5%-D20w+Lytes*E* 1,000 ml @ 30 mls/hr IV .Q24H [facility] Rx#:[id number] Piperacillin-Tazobactam 3 100 .375 gm In Sodium Chloride 0.9% 100 ml @ 25 mls/hr IVPB Q8H [facility] Rx#: [id number] Output: Gastric Drainage 650 Drainage 80 15 Right Abdomen 80 15 Urine 1100 725 Stool 100 100 Oral Regurgitation 100 Other: Voiding Method Indwelling Catheter Indwelling Catheter Urinal # Voids 6 - Exam GENERAL DESCRIPTION: Middle-aged male lying in bed in no distress RESPIRATORY SYSTEM: Unlabored breathing , decreased breath sounds at bases HEART: S1 S2 regular rate and rhythm , ABDOMEN: Soft , no tenderness EXTREMITIES: No edema feet - Labs CBC & Chem 7: 07/04/22 05:14 07/04/22 05:14 Labs: Abnormal Lab Results - Last 24 Hours (Table) 07/02/22 07/03/22 07/03/22 Range/Units 16:26 06:06 06:06 WBC 17.02 H (4.50-10.00) X 10*3/uL RBC 4.25 L (4.40-5.60) X 10*6/uL Hct 38.8 L (39.6-50.0) % Plt Count 563 H (140-440) X 10*3/uL Immature Gran # 0.37 H (0.00-0.04) X 10*3/uL Neutrophils # 13.82 H (1.80-7.70) X 10*3/uL Eosinophils # 0.36 H (0.04-0.35) X 10*3/uL Basophils # 0.12 H (0.00-0.10) X 10*3/uL Sodium 136 L (137-145) mmol/L Chloride 97 L (98-107) mmol/L Carbon Dioxide 29.7 H (20.0-27.5) mmol/L Anion Gap 7.30 L (10.00-18.00) mmol/L Glucose 104 H 121 H (74-99) mg/dL POC Glucose (mg/dL) (70-110) mg/dL Total Protein 6.1 L (6.2-8.2) g/dL Albumin 3.5 L (3.8-4.9) g/dL Albumin/Globulin Ratio 1.35 L (1.60-3.17) g/dL Triglycerides 197.00 H (0.00-149.00) mg/dL 07/03/22 Range/Units 12:04 WBC (4.50-10.00) X 10*3/uL RBC (4.40-5.60) X 10*6/uL Hct (39.6-50.0) % Plt Count (140-440) X 10*3/uL Immature Gran # (0.00-0.04) X 10*3/uL Neutrophils # (1.80-7.70) X 10*3/uL Eosinophils # (0.04-0.35) X 10*3/uL Basophils # (0.00-0.10) X 10*3/uL Sodium (137-145) mmol/L Chloride (98-107) mmol/L Carbon Dioxide (20.0-27.5) mmol/L Anion Gap (10.00-18.00) mmol/L Glucose (74-99) mg/dL POC Glucose (mg/dL) 117 H (70-110) mg/dL Total Protein (6.2-8.2) g/dL Albumin (3.8-4.9) g/dL Albumin/Globulin Ratio (1.60-3.17) g/dL Triglycerides (0.00-149.00) mg/dL Assessment and Plan (1) Acute diverticulitis Current Visit: Yes Status: Acute Code(s): K57.92 - DVTRCLI OF INTEST, PART UNSP, W/O PERF OR ABSCESS W/O BLEED SNOMED Code(s): 201350174 (2) Failure of outpatient treatment Current Visit: Yes Status: Acute Code(s): Z78.9 - OTHER SPECIFIED HEALTH STATUS SNOMED Code(s): 711666649 Plan: 1patient presented to hospital with sepsis in this patient did have a fever tachycardia elevated white count source is acute complicated diverticulitis with perforation and will need to cover for the enteric gram-negative both aerobes and anaerobes. 2patient seemed to have failed medical therapy in this patient who is status post laparotomy and diverting colostomy, no OR culture were done 3-patient slowly clinically improving and will continue with the Zosyn and monitor clinical course closely Time with Patient: Less than 30
--- NOTE | 2022-07-04 11:38 | P.PN ---
Subjective Progress Note Date: 07/04/22 CHIEF COMPLAINT: Perforated Diverticulitis HISTORY OF PRESENT ILLNESS: Patient is postop day #4 status post sigmoid colectomy with end colostomy for perforated sigmoid diverticulitis. Patient did have worsening abdominal pain over the weekend. This has improved. He did require increase in IV Dilaudid over the weekend. He is now on Dilaudid 1 mg IV every 3 hours. He reports that he started having pain around the 2 hour rayshawn. He denies any nausea or vomiting. His ostomy is functioning. Afebrile. WBC 17.0-17.33 Hgb 13.1 sodium 137 potassium 4.1 creatinine 0.9 patient is also on TPN for nutrition support. NG tube was discontinued yesterday. Patient is sitting up at bedside chair. PHYSICAL EXAM: VITAL SIGNS: Reviewed. GENERAL: Well-developed in no acute distress. HEENT: No sclera icterus. Extraocular movements grossly intact. Moist buccal mucosa. Head is atraumatic, normocephalic. ABDOMEN: Soft. Nondistended. Incision clean dry and intact. He does have [address] that have old blood noted. Stoma pink stool and air noted in ostomy bag NEUROLOGIC: Alert and oriented. Cranial nerves II through XII grossly intact. ASSESSMENT: 1. Perforated sigmoid diverticulitis status post sigmoid colectomy with end colostomy 2. Leukocytosis 3. Moderate protein calorie malnutrition PLAN: -Change abdominal malik daily -Continue clear liquid diet -Add [place] to help with pain control -Continue IV antibiotics -Encouraged patient to increase activity level -Encouraged patient to use incentive spirometer -GI prophylaxis Protonix and DVT prophylaxis subcu heparin Physician Machine Fur Cleaner note has been reviewed by physician. Signing provider agrees with the documented findings, assessment, and plan of care. I have personally seen and examined the patient, reviewed the PREFINISH OPERATOR /PAs history, exam and MDM and agree with the assessment and plan as written. Based on total visit time, I have performed more than 50% of the visit. As above: Patient says his pain is better than it was 2 days ago. He thinks he is gradually improving. He is sitting up in a chair. He walked in the hallways the length of the cesar. He is having ostomy function with large volume of loose stool at this time. Malik were changed today. White blood cell count remains elevated. Continue clear liquids for now. Continue antibiotics. Continue increasing activity. Objective - Vital Signs Vital signs: Vital Signs Temp 98.0 F 07/04/22 03:44 Pulse 86 07/04/22 03:44 Resp 16 07/04/22 03:44 BP 149/81 07/04/22 03:44 Pulse Ox 96 07/04/22 03:44 FiO2 Intake & Output 07/03/22 07/04/22 07/04/22 18:59 06:59 18:59 Intake Total 1040 2920 Output Total 20 1815 Balance 1020 1105 Intake: Intake, IV Titration 800 2420 Amount Fat Emulsion 20% 500 ml 400 In Empty Bag 1 bag @ 42 mls/hr IV Q7D [facility] Rx#: [id number] Mvi, Adult No.4 with Vit 1200 K 10 ml Trace (Conc-1Ml/ Dose) 1 ml In Amino Acid 5%-D20w+Lytes*E* 1,000 ml @ 100 mls/hr IV .BY DURATION [facility] Rx#: [id number] Mvi, Adult No.4 with Vit 360 720 K 10 ml Trace (Conc-1Ml/ Dose) 1 ml In Amino Acid 5%-D20w+Lytes*E* 1,000 ml @ 30 mls/hr IV .Q24H [facility] Rx#:[id number] Piperacillin-Tazobactam 3 200 100 .375 gm In Sodium Chloride 0.9% 100 ml @ 25 mls/hr IVPB Q8H [facility] Rx#: [id number] Sodium Chloride 0.9% 1, 240 000 ml @ 20 mls/hr IV . Q24H [facility] Rx#:[id number] Oral 240 500 Output: Drainage 20 15 Right Abdomen 20 15 Urine 1800 Other: Voiding Method Urinal Urinal # Voids 5 - Labs CBC & Chem 7: 07/04/22 05:14 07/04/22 05:14 Labs: Abnormal Lab Results - Last 24 Hours (Table) 07/03/22 07/03/22 07/03/22 Range/Units 12:04 18:06 23:40 WBC (4.50-10.00) X 10*3/uL RBC (4.40-5.60) X 10*6/uL Hct (39.6-50.0) % Plt Count (140-440) X 10*3/uL Immature Gran # (0.00-0.04) X 10*3/uL Neutrophils # (1.80-7.70) X 10*3/uL Eosinophils # (0.04-0.35) X 10*3/uL Basophils # (0.00-0.10) X 10*3/uL Glucose (70-110) mg/dL POC Glucose (mg/dL) 117 H 111 H 158 H (70-110) mg/dL Albumin (3.8-4.9) g/dL Albumin/Globulin Ratio (1.60-3.17) g/dL 07/04/22 07/04/22 07/04/22 Range/Units 05:14 05:14 05:51 WBC 17.33 H (4.50-10.00) X 10*3/uL RBC 4.21 L (4.40-5.60) X 10*6/uL Hct 38.9 L (39.6-50.0) % Plt Count 544 H (140-440) X 10*3/uL Immature Gran # 0.43 H (0.00-0.04) X 10*3/uL Neutrophils # 14.11 H (1.80-7.70) X 10*3/uL Eosinophils # 0.39 H (0.04-0.35) X 10*3/uL Basophils # 0.13 H (0.00-0.10) X 10*3/uL Glucose 151 H (70-110) mg/dL POC Glucose (mg/dL) 142 H (70-110) mg/dL Albumin 3.6 L (3.8-4.9) g/dL Albumin/Globulin Ratio 1.38 L (1.60-3.17) g/dL 07/04/22 Range/Units 11:27 WBC (4.50-10.00) X 10*3/uL RBC (4.40-5.60) X 10*6/uL Hct (39.6-50.0) % Plt Count (140-440) X 10*3/uL Immature Gran # (0.00-0.04) X 10*3/uL Neutrophils # (1.80-7.70) X 10*3/uL Eosinophils # (0.04-0.35) X 10*3/uL Basophils # (0.00-0.10) X 10*3/uL Glucose (70-110) mg/dL POC Glucose (mg/dL) 144 H (70-110) mg/dL Albumin (3.8-4.9) g/dL Albumin/Globulin Ratio (1.60-3.17) g/dL
[2022-07-04] MEDS ORDERED: HYDROmorphone 2 MG/ML 1 ML SYRINGE IVP PRN (12:36)
[2022-07-04] MEDS: HYDROcodone/APAP 5-325MG 1 EACH TAB PO PRN ×2 (12:36→17:55)
--- NOTE | 2022-07-04 14:57 | P.PN ---
Subjective Progress Note Date: 07/04/22 Principal diagnosis: abdominal pain Hospital Course: 41-year-old malein significant past medical history presenting with sepsis secondary to acute perforated sigmoid diverticulitis. Patient has postop day 4 status post sigmoid colectomy with end colostomy. Infectious disease also following patient. Patient remains on Zosyn with clinical improvement. Curr ently tolerating minimal amounts of clear liquids. Subjective: Patient seen and examined at bedside. No acute events overnight. Patient claims that his oral intake is slowly improving. He has also started to walk. He continues to have abdominal pain around the incision and colostomy. He zuleyma es any worsening pain. He denies any chest pain or shortness of breath or urinary complaints. Pertinent positives and negatives as discussed above, a complete review of systems was performed and all other systems are negative. Vitals Signs Reviewed. General: nontoxic, no distress, appears at stated age Derm: warm, dry Head: atraumatic, normocephalic, symmetric Eyes: EOMI, no lid lag, anicteric sclera Mouth: no lip lesion, mucus membranes moist Cardiovascular: S1S2 reg, no murmur Lungs: CTA bilateral, no rhonchi, no rales , no accessory muscle use Abdominal: soft, mild tenderness to palpation all quadrants, no guarding, no appreciable organomegaly, midline incision covered in dressing, left sided colostomy with stool Ext: no gross muscle atrophy, no edema, no contractures Neuro: CN II-XI grossly intact, no focal neuro deficits Psych: Alert, oriented, appropriate affect Assessment and Plan: Sepsis Perforated sigmoid diverticulitis with pneumoperitoneum Leukocytosis -Status post sigmoid colectomy with end colostomy on 06/29 -Surgery following -Infectious disease following -Blood cultures negative -Continue Zosyn, improving clinically -Slowly advance diet, currently on clear liquids -Pain control Impaired perfusion to the right upper pole kidney, seen on CT -Evaluated by urology, no further management needed Morbid obesity -Counseled regarding lifestyle modifications -Needs outpatient follow Generalized weakness -PT/OT F: D5 half-normal at 80 mL an hour E: Replete as needed N: Clear liquids A: As tolerated DVT ppx: Lovenox Code status: Full code Anticipated discharge place: Home Anticipated discharge time: 2-3 days Objective - Vital Signs Vital signs: Vital Signs Temp 97.9 F 07/04/22 12:04 Pulse 87 07/04/22 12:04 Resp 20 07/04/22 12:04 BP 163/111 07/04/22 12:04 Pulse Ox 97 07/04/22 12:04 FiO2 Intake & Output 07/03/22 07/04/22 07/04/22 18:59 06:59 18:59 Intake Total 1040 2920 Output Total 20 1815 Balance 1020 1105 Weight 138.346 kg Intake: Intake, IV Titration 800 2420 Amount Fat Emulsion 20% 500 ml 400 In Empty Bag 1 bag @ 42 mls/hr IV Q7D [facility] Rx#: [id number] Mvi, Adult No.4 with Vit 1200 K 10 ml Trace (Conc-1Ml/ Dose) 1 ml In Amino Acid 5%-D20w+Lytes*E* 1,000 ml @ 100 mls/hr IV .BY DURATION [facility] Rx#: [id number] Mvi, Adult No.4 with Vit 360 720 K 10 ml Trace (Conc-1Ml/ Dose) 1 ml In Amino Acid 5%-D20w+Lytes*E* 1,000 ml @ 30 mls/hr IV .Q24H [facility] Rx#:[id number] Piperacillin-Tazobactam 3 200 100 .375 gm In Sodium Chloride 0.9% 100 ml @ 25 mls/hr IVPB Q8H [facility] Rx#: [id number] Sodium Chloride 0.9% 1, 240 000 ml @ 20 mls/hr IV . Q24H [facility] Rx#:[id number] Oral 240 500 Output: Drainage 20 15 Right Abdomen 20 15 Urine 1800 Other: Voiding Method Urinal Urinal # Voids 5 - Labs CBC & Chem 7: 07/04/22 05:14 07/04/22 05:14 Labs: Abnormal Lab Results - Last 24 Hours (Table) 07/03/22 07/03/22 07/04/22 Range/Units 18:06 23:40 05:14 WBC (4.50-10.00) X 10*3/uL RBC (4.40-5.60) X 10*6/uL Hct (39.6-50.0) % Plt Count (140-440) X 10*3/uL Immature Gran # (0.00-0.04) X 10*3/uL Neutrophils # (1.80-7.70) X 10*3/uL Eosinophils # (0.04-0.35) X 10*3/uL Basophils # (0.00-0.10) X 10*3/uL Glucose 151 H (70-110) mg/dL POC Glucose (mg/dL) 111 H 158 H (70-110) mg/dL Albumin 3.6 L (3.8-4.9) g/dL Albumin/Globulin Ratio 1.38 L (1.60-3.17) g/dL 07/04/22 07/04/22 07/04/22 Range/Units 05:14 05:51 11:27 WBC 17.33 H (4.50-10.00) X 10*3/uL RBC 4.21 L (4.40-5.60) X 10*6/uL Hct 38.9 L (39.6-50.0) % Plt Count 544 H (140-440) X 10*3/uL Immature Gran # 0.43 H (0.00-0.04) X 10*3/uL Neutrophils # 14.11 H (1.80-7.70) X 10*3/uL Eosinophils # 0.39 H (0.04-0.35) X 10*3/uL Basophils # 0.13 H (0.00-0.10) X 10*3/uL Glucose (70-110) mg/dL POC Glucose (mg/dL) 142 H 144 H (70-110) mg/dL Albumin (3.8-4.9) g/dL Albumin/Globulin Ratio (1.60-3.17) g/dL
[2022-07-04 16:52] LABS: Glucose,Whole Blood 117 mg/dL (70-110)
[2022-07-04] MEDS: SODIUM CHLORIDE 0.9% 1,000 ML IV SCH (19:36)
[2022-07-04 23:44] LABS: Glucose,Whole Blood 129 mg/dL (70-110)
[2022-07-05] MEDS: HYDROmorphone 1 MG/ML 1 ML SYRINGE IVP PRN ×6 (00:07→21:38)
[2022-07-05] MEDS: HYDROcodone/APAP 5-325MG 1 EACH TAB PO PRN ×5 (01:23→20:35)
[2022-07-05] MEDS: D5-0.45% NACL WITH KCL 20MEQ/L 1,000 ML IV SCH ×2 (03:29→16:55)
[2022-07-05] MEDS: PIPERACILLIN-TAZOBACTAM 3.375 GM in SODIUM CHLORIDE 0.9% 100 ML IVPB SCH ×3 (03:37→20:38)
[2022-07-05] MEDS: 1: MVI, ADULT NO.4 WITH VIT K 10 ML, TRACE (CONC-1ML/DOSE) 1 ML in AMINO ACID 5%-D20W+LY IV SCH ×6 (05:50→14:59)
[2022-07-05] MEDS: ONDANSETRON 4 MG/2 ML VIAL IVP PRN (05:56)
[2022-07-05 06:00] LABS: Glucose,Whole Blood 113 mg/dL (70-110)
[2022-07-05] MEDS: PANTOPRAZOLE 40 MG/10 ML VIAL IV SCH (09:55)
[2022-07-05] MEDS: DOCUSATE 100 MG CAP PO SCH ×2 (09:56→21:37)
[2022-07-05] MEDS: ENOXAPARIN 40 MG/0.4 ML SYRINGE SQ SCH (09:56)
[2022-07-05] MEDS: SIMETHICONE 40 MG/0.6 ML DROPS 2,000 MG/30 ML BOTTLE PO SCH ×4 (09:57→21:49)
[2022-07-05 10:37] LABS: Basophils # (A) 0.11 X 10*3/uL (0.00-0.10); Basophils % (A) 0.7 %; Eosinophils # (A) 0.37 X 10*3/uL (0.04-0.35); Eosinophils % (A) 2.3 %; HCT 40.7 % (39.6-50.0); Lymphocytes # (A) 1.84 X 10*3/uL (0.90-5.00); Lymphocytes % (A) 11.4 %; MCH 30.1 pg (27.0-32.0); MCHC 31.9 g/dL (32.0-37.0); MCV 94.2 fL (80.0-97.0); Mean Platelet Volume 9.8 fL (9.5-12.2); Monocytes # (A) 0.96 X 10*3/uL (0.20-1.00); NRBC Per 100 WBC 0 /100 WBCS (0.0-0.0); Neutrophils # (A) 12.35 X 10*3/uL (1.80-7.70); Neutrophils % (A) 76.6 %; Platelet Count 513 X 10*3/uL (140-440); RBC 4.32 X 10*6/uL (4.40-5.60); RDW 13.5 % (11.5-14.5); WBC 16.12 X 10*3/uL (4.50-10.00)
[2022-07-05 10:56] LABS: Glucose,Whole Blood 138 mg/dL (70-110)
--- NOTE | 2022-07-05 11:05 | P.PN ---
Subjective Progress Note Date: 07/05/22 CHIEF COMPLAINT: Perforated Diverticulitis HISTORY OF PRESENT ILLNESS: Patient is postop day #5 status post sigmoid colectomy with end colostomy for perforated sigmoid diverticulitis. Patient reports that his pain is controlled. His pain is better than yesterday. He denies any nausea or vomiting. His ostomy is functioning. He does report that the tops of his feet hurting. He was able to ambulate in the hallway. Afebrile. WBC is down from 17-6. Hgb 13 platelets 513. Abdominal cheri changed yesterday by nursing. TAMMY drain 40ml serosanguinous output. PHYSICAL EXAM: VITAL SIGNS: Reviewed. GENERAL: Well-developed in no acute distress. HEENT: No sclera icterus. Extraocular movements grossly intact. Moist buccal mucosa. Head is atraumatic, normocephalic. ABDOMEN: Soft. Nondistended. Incision clean dry and intact. [address] serosanguineous drainage. bridger pink stool and air noted in ostomy bag NEUROLOGIC: Alert and oriented. Cranial nerves II through XII grossly intact. Extremities: Patient has tenderness with palpation of the tops of his feet bilaterally. There is looks like possibly getting a bruise on the dorsal aspect of the right foot. Pulses are intact. No calf pain bilaterally ASSESSMENT: 1. Perforated sigmoid diverticulitis status post sigmoid colectomy with end colostomy 2. Leukocytosis 3. Moderate protein calorie malnutrition PLAN: -Continue clear liquid diet -Continue pain medication -Continue IV antibiotics -Av hose ordered for feet pain and swelling -Encouraged patient to increase activity level -Encouraged patient to use incentive spirometer -GI prophylaxis Protonix and DVT prophylaxis subcu heparin Physician Resident Buyer note has been reviewed by physician. Signing provider agrees with the documented findings, assessment, and plan of care. I have personally seen and examined the patient, reviewed the PROCESS ANALYST /PAs history, exam and MDM and agree with the assessment and plan as written. Based on total visit time, I have performed more than 50% of the visit. As above: Patient is doing better today. He is having some pain on the dorsum of each foot. It is improved from when it started. No calf or leg pain. White blood cell count improved today. Abdomen is soft with minimal distention. Good ostomy function. Will advance diet. Objective - Vital Signs Vital signs: Vital Signs Temp 97.6 F 07/05/22 08:01 Pulse 99 07/05/22 08:01 Resp 18 07/05/22 08:01 BP 137/91 07/05/22 08:01 Pulse Ox 96 07/05/22 04:07 FiO2 Intake & Output 07/04/22 07/05/22 07/05/22 18:59 06:59 18:59 Intake Total 2551 3151 Output Total 1595 20 Balance 2551 1556 -20 Weight 138.346 kg Intake: Intake, IV Titration 2551 2351 Amount Amino Acid 5%-D20w+Lytes* 1200 1000 E* 1,000 ml @ 100 mls/hr IV .BY DURATION [facility] Rx#: [id number] Mvi, Adult No.4 with Vit 1011 1011 K 10 ml Trace (Conc-1Ml/ Dose) 1 ml In Amino Acid 5%-D20w+Lytes*E* 1,000 ml @ 100 mls/hr IV .BY DURATION [facility] Rx#: [id number] Piperacillin-Tazobactam 3 100 100 .375 gm In Sodium Chloride 0.9% 100 ml @ 25 mls/hr IVPB Q8H [facility] Rx#: [id number] Sodium Chloride 0.9% 1, 240 240 000 ml @ 20 mls/hr IV . Q24H [facility] Rx#:[id number] Oral 800 Output: Drainage 20 20 Right Abdomen 20 20 Urine 1575 Other: Voiding Method Toilet Toilet Urinal Urinal - Labs CBC & Chem 7: 07/05/22 06:11 07/05/22 06:11 Labs: Abnormal Lab Results - Last 24 Hours (Table) 07/04/22 07/04/22 07/04/22 Range/Units 11:27 16:51 23:40 WBC (4.50-10.00) X 10*3/uL RBC (4.40-5.60) X 10*6/uL MCHC (32.0-37.0) g/dL Plt Count (140-440) X 10*3/uL Immature Gran # (0.00-0.04) X 10*3/uL Neutrophils # (1.80-7.70) X 10*3/uL Eosinophils # (0.04-0.35) X 10*3/uL Basophils # (0.00-0.10) X 10*3/uL POC Glucose (mg/dL) 144 H 117 H 129 H (70-110) mg/dL 07/05/22 07/05/22 07/05/22 Range/Units 05:58 06:11 10:54 WBC 16.12 H (4.50-10.00) X 10*3/uL RBC 4.32 L (4.40-5.60) X 10*6/uL MCHC 31.9 L (32.0-37.0) g/dL Plt Count 513 H (140-440) X 10*3/uL Immature Gran # 0.49 H (0.00-0.04) X 10*3/uL Neutrophils # 12.35 H (1.80-7.70) X 10*3/uL Eosinophils # 0.37 H (0.04-0.35) X 10*3/uL Basophils # 0.11 H (0.00-0.10) X 10*3/uL POC Glucose (mg/dL) 113 H 138 H (70-110) mg/dL
[2022-07-05 12:31] LABS: Magnesium 2.3 mg/dL (1.5-2.4); Phosphorus 4.1 mg/dL (2.4-5.1)
[2022-07-05 13:00] LABS: African American GFR (CKD) 121.7 (60.0-200.0); Anion Gap 11.8 mmol/L (10.00-18.00); BUN/Creat Ratio 17.11 Ratio (12.00-20.00); Blood Urea Nitrogen 15.4 mg/dL (9.0-27.0); Calcium 8.9 mg/dL (8.7-10.3); Carbon Dioxide 27.2 mmol/L (20.0-27.5); Potassium 4.5 mmol/L (3.5-5.5)
--- NOTE | 2022-07-05 13:36 | P.PN ---
Subjective Progress Note Date: 07/05/22 Principal diagnosis: abdominal pain Hospital Course: 41-year-old malein significant past medical history presenting with sepsis secondary to acute perforated sigmoid diverticulitis. Patient has postop day 5 status post sigmoid colectomy with end colostomy. Infectious disease also following patient. Patient remains on Zosyn with clinical improvement. Currently tolerating clear liquids. Subjective: Patient seen and examined at bedside. No acute events overnight. Patient claims that his oral intake is slowly improving. He continues to have abdominal pain around the incision and colostomy. He denies any worsening pain. He is also complaining of bilateral feet pain on the dorsal aspect, which started after he walked yesterday. He denies any chest pain or shortness of breath or urinary complaints. Pertinent positives and negatives as discussed above, a complete review of systems was performed and all other systems are negative. Vitals Signs Reviewed. General: nontoxic, no distress, appears at stated age Derm: warm, dry Head: atraumatic, normocephalic, symmetric Eyes: EOMI, no lid lag, anicteric sclera Mouth: no lip lesion, mucus membranes moist Cardiovascular: S1S2 reg, no murmur Lungs: CTA bilateral, no rhonchi, no rales , no accessory muscle use Abdominal: soft, mild tenderness to palpation all quadrants, no guarding, no appreciable organomegaly, midline incision covered in dressing, left sided colostomy with stool Ext: no gross muscle atrophy, no edema, no contractures, bilateral dorsal foot tenderness Neuro: CN II-XI grossly intact, no focal neuro deficits Psych: Alert, oriented, appropriate affect Assessment and Plan: Sepsis Perforated sigmoid diverticulitis with pneumoperitoneum Leukocytosis -Status post sigmoid colectomy with end colostomy on 06/29 -Surgery following -Infectious disease following -Blood cultures negative -Continue Zosyn, improving clinically -Slowly advance diet, currently on clear liquids -Pain control Feet pain, bilateral - likely secondary to prolonged imbolization - normal electrolytes - sarbjit hose ordered by surgery Impaired perfusion to the right upper pole kidney, seen on CT -Evaluated by urology, no further management needed Morbid obesity -Counseled regarding lifestyle modifications -Needs outpatient follow Generalized weakness -PT/OT F: D5 half-normal at 80 mL an hour E: Replete as needed N: Clear liquids A: As tolerated DVT ppx: Lovenox Code status: Full code Anticipated discharge place: Home Anticipated discharge time: 2-3 days Objective - Vital Signs Vital signs: Vital Signs Temp 98.7 F 07/05/22 12:36 Pulse 88 07/05/22 12:36 Resp 20 07/05/22 12:36 BP 157/92 07/05/22 12:36 Pulse Ox 96 07/05/22 12:36 FiO2 Intake & Output 07/04/22 07/05/22 07/05/22 18:59 06:59 18:59 Intake Total 2551 3151 Output Total 1595 670 Balance 2551 1556 -670 Weight 138.346 kg Intake: Intake, IV Titration 2551 2351 Amount Amino Acid 5%-D20w+Lytes* 1200 1000 E* 1,000 ml @ 100 mls/hr IV .BY DURATION [facility] Rx#: [id number] Mvi, Adult No.4 with Vit 1011 1011 K 10 ml Trace (Conc-1Ml/ Dose) 1 ml In Amino Acid 5%-D20w+Lytes*E* 1,000 ml @ 100 mls/hr IV .BY DURATION [facility] Rx#: [id number] Piperacillin-Tazobactam 3 100 100 .375 gm In Sodium Chloride 0.9% 100 ml @ 25 mls/hr IVPB Q8H [facility] Rx#: [id number] Sodium Chloride 0.9% 1, 240 240 000 ml @ 20 mls/hr IV . Q24H [facility] Rx#:[id number] Oral 800 Output: Drainage 20 20 Right Abdomen 20 20 Urine 1575 650 Other: Voiding Method Toilet Toilet Urinal Urinal # Voids 1 - Labs CBC & Chem 7: 07/05/22 06:11 07/05/22 06:11 Labs: Abnormal Lab Results - Last 24 Hours (Table) 07/04/22 07/04/22 07/05/22 Range/Units 16:51 23:40 05:58 WBC (4.50-10.00) X 10*3/uL RBC (4.40-5.60) X 10*6/uL MCHC (32.0-37.0) g/dL Plt Count (140-440) X 10*3/uL Immature Gran # (0.00-0.04) X 10*3/uL Neutrophils # (1.80-7.70) X 10*3/uL Eosinophils # (0.04-0.35) X 10*3/uL Basophils # (0.00-0.10) X 10*3/uL Glucose (70-110) mg/dL POC Glucose (mg/dL) 117 H 129 H 113 H (70-110) mg/dL 07/05/22 07/05/22 07/05/22 Range/Units 06:11 06:11 10:54 WBC 16.12 H (4.50-10.00) X 10*3/uL RBC 4.32 L (4.40-5.60) X 10*6/uL MCHC 31.9 L (32.0-37.0) g/dL Plt Count 513 H (140-440) X 10*3/uL Immature Gran # 0.49 H (0.00-0.04) X 10*3/uL Neutrophils # 12.35 H (1.80-7.70) X 10*3/uL Eosinophils # 0.37 H (0.04-0.35) X 10*3/uL Basophils # 0.11 H (0.00-0.10) X 10*3/uL Glucose 120 H (70-110) mg/dL POC Glucose (mg/dL) 138 H (70-110) mg/dL
[2022-07-05] MEDS: SODIUM CHLORIDE 0.9% 1,000 ML IV SCH (16:55)
[2022-07-05 17:13] LABS: Glucose,Whole Blood 125 mg/dL (70-110)
--- NOTE | 2022-07-05 22:44 | P.PN ---
Subjective Progress Note Date: 07/04/22 Principal diagnosis: Acute complicated diverticulitis Patient is a 41-year-old male presented to the hospital with abdominal pain with a recent diagnosis of diverticulitis failing outpatient oral Augmentin therapy with repeat CAT scan shows perforation. Patient was taken to the OR 06/29/2022 status post laparotomy and diverting colostomy on today's evaluation that is 07/04/2022, the patient remains to be afebrile, the patient abdominal pain is controlled with the current meds , the patient is breathing comfortably on room air, patient denies nausea, vomiting no chest pain shortness of breath or cough Objective - Vital Signs Vital signs: Vital Signs Temp 98.0 F 07/04/22 03:44 Pulse 86 07/04/22 03:44 Resp 16 07/04/22 03:44 BP 149/81 07/04/22 03:44 Pulse Ox 96 07/04/22 03:44 FiO2 Intake & Output 07/03/22 07/04/22 07/04/22 18:59 06:59 18:59 Intake Total 1040 2920 Output Total 20 1815 Balance 1020 1105 Intake: Intake, IV Titration 800 2420 Amount Fat Emulsion 20% 500 ml 400 In Empty Bag 1 bag @ 42 mls/hr IV Q7D [facility] Rx#: [id number] Mvi, Adult No.4 with Vit 1200 K 10 ml Trace (Conc-1Ml/ Dose) 1 ml In Amino Acid 5%-D20w+Lytes*E* 1,000 ml @ 100 mls/hr IV .BY DURATION [facility] Rx#: [id number] Mvi, Adult No.4 with Vit 360 720 K 10 ml Trace (Conc-1Ml/ Dose) 1 ml In Amino Acid 5%-D20w+Lytes*E* 1,000 ml @ 30 mls/hr IV .Q24H [facility] Rx#:[id number] Piperacillin-Tazobactam 3 200 100 .375 gm In Sodium Chloride 0.9% 100 ml @ 25 mls/hr IVPB Q8H [facility] Rx#: [id number] Sodium Chloride 0.9% 1, 240 000 ml @ 20 mls/hr IV . Q24H [facility] Rx#:[id number] Oral 240 500 Output: Drainage 20 15 Right Abdomen 20 15 Urine 1800 Other: Voiding Method Urinal Urinal # Voids 5 - Exam GENERAL DESCRIPTION: Middle-aged male lying in bed in no distress RESPIRATORY SYSTEM: Unlabored breathing , decreased breath sounds at bases HEART: S1 S2 regular rate and rhythm , ABDOMEN: Soft , no tenderness EXTREMITIES: No edema feet - Labs CBC & Chem 7: 07/05/22 06:11 07/05/22 06:11 Labs: Abnormal Lab Results - Last 24 Hours (Table) 07/03/22 07/03/22 07/03/22 Range/Units 12:04 18:06 23:40 WBC (4.50-10.00) X 10*3/uL RBC (4.40-5.60) X 10*6/uL Hct (39.6-50.0) % Plt Count (140-440) X 10*3/uL Immature Gran # (0.00-0.04) X 10*3/uL Neutrophils # (1.80-7.70) X 10*3/uL Eosinophils # (0.04-0.35) X 10*3/uL Basophils # (0.00-0.10) X 10*3/uL Glucose (70-110) mg/dL POC Glucose (mg/dL) 117 H 111 H 158 H (70-110) mg/dL Albumin (3.8-4.9) g/dL Albumin/Globulin Ratio (1.60-3.17) g/dL 07/04/22 07/04/22 07/04/22 Range/Units 05:14 05:14 05:51 WBC 17.33 H (4.50-10.00) X 10*3/uL RBC 4.21 L (4.40-5.60) X 10*6/uL Hct 38.9 L (39.6-50.0) % Plt Count 544 H (140-440) X 10*3/uL Immature Gran # 0.43 H (0.00-0.04) X 10*3/uL Neutrophils # 14.11 H (1.80-7.70) X 10*3/uL Eosinophils # 0.39 H (0.04-0.35) X 10*3/uL Basophils # 0.13 H (0.00-0.10) X 10*3/uL Glucose 151 H (70-110) mg/dL POC Glucose (mg/dL) 142 H (70-110) mg/dL Albumin 3.6 L (3.8-4.9) g/dL Albumin/Globulin Ratio 1.38 L (1.60-3.17) g/dL 07/04/22 Range/Units 11:27 WBC (4.50-10.00) X 10*3/uL RBC (4.40-5.60) X 10*6/uL Hct (39.6-50.0) % Plt Count (140-440) X 10*3/uL Immature Gran # (0.00-0.04) X 10*3/uL Neutrophils # (1.80-7.70) X 10*3/uL Eosinophils # (0.04-0.35) X 10*3/uL Basophils # (0.00-0.10) X 10*3/uL Glucose (70-110) mg/dL POC Glucose (mg/dL) 144 H (70-110) mg/dL Albumin (3.8-4.9) g/dL Albumin/Globulin Ratio (1.60-3.17) g/dL Assessment and Plan (1) Acute diverticulitis Current Visit: Yes Status: Acute Code(s): K57.92 - DVTRCLI OF INTEST, PART UNSP, W/O PERF OR ABSCESS W/O BLEED SNOMED Code(s): 089936952 (2) Failure of outpatient treatment Current Visit: Yes Status: Acute Code(s): Z78.9 - OTHER SPECIFIED HEALTH STATUS SNOMED Code(s): 354623648 Plan: 1patient presented to hospital with sepsis in this patient did have a fever tachycardia elevated white count source is acute complicated diverticulitis with perforation and will need to cover for the enteric gram-negative both aerobes and anaerobes. 2patient seemed to have failed medical therapy in this patient who is status post laparotomy and diverting colostomy, no OR culture were done 3-patient has shown some clinical improvement and will continue with the Zosyn and monitor clinical course closely
--- NOTE | 2022-07-05 22:46 | P.PN ---
Subjective Progress Note Date: 07/05/22 Principal diagnosis: Acute complicated diverticulitis Patient is a 41-year-old male presented to the hospital with abdominal pain with a recent diagnosis of diverticulitis failing outpatient oral Augmentin therapy with repeat CAT scan shows perforation. Patient was taken to the OR 06/29/2022 status post laparotomy and diverting colostomy on today's evaluation that is 07/05/2022, the patient continues to be afebrile, the patient abdominal pain is controlled , the patient is breathing comfortably on room air, patient denies nausea, vomiting, the patient did have output in his colostomy bag, the patient denies chest pain shortness of breath or cough Objective - Vital Signs Vital signs: Vital Signs Temp 98.7 F 07/05/22 12:36 Pulse 88 07/05/22 12:36 Resp 20 07/05/22 12:36 BP 157/92 07/05/22 12:36 Pulse Ox 96 07/05/22 12:36 FiO2 Intake & Output 07/04/22 07/05/22 07/05/22 18:59 06:59 18:59 Intake Total 2551 3151 Output Total 1595 20 Balance 2551 1556 -20 Weight 138.346 kg Intake: Intake, IV Titration 2551 2351 Amount Amino Acid 5%-D20w+Lytes* 1200 1000 E* 1,000 ml @ 100 mls/hr IV .BY DURATION [facility] Rx#: [id number] Mvi, Adult No.4 with Vit 1011 1011 K 10 ml Trace (Conc-1Ml/ Dose) 1 ml In Amino Acid 5%-D20w+Lytes*E* 1,000 ml @ 100 mls/hr IV .BY DURATION [facility] Rx#: [id number] Piperacillin-Tazobactam 3 100 100 .375 gm In Sodium Chloride 0.9% 100 ml @ 25 mls/hr IVPB Q8H [facility] Rx#: [id number] Sodium Chloride 0.9% 1, 240 240 000 ml @ 20 mls/hr IV . Q24H [facility] Rx#:[id number] Oral 800 Output: Drainage 20 20 Right Abdomen 20 20 Urine 1575 Other: Voiding Method Toilet Toilet Urinal Urinal - Exam GENERAL DESCRIPTION: Middle-aged male lying in bed in no distress RESPIRATORY SYSTEM: Unlabored breathing , decreased breath sounds at bases HEART: S1 S2 regular rate and rhythm , ABDOMEN: Soft , no tenderness EXTREMITIES: No edema feet - Labs CBC & Chem 7: 07/05/22 06:11 07/05/22 06:11 Labs: Abnormal Lab Results - Last 24 Hours (Table) 07/04/22 07/04/22 07/05/22 Range/Units 16:51 23:40 05:58 WBC (4.50-10.00) X 10*3/uL RBC (4.40-5.60) X 10*6/uL MCHC (32.0-37.0) g/dL Plt Count (140-440) X 10*3/uL Immature Gran # (0.00-0.04) X 10*3/uL Neutrophils # (1.80-7.70) X 10*3/uL Eosinophils # (0.04-0.35) X 10*3/uL Basophils # (0.00-0.10) X 10*3/uL POC Glucose (mg/dL) 117 H 129 H 113 H (70-110) mg/dL 07/05/22 07/05/22 Range/Units 06:11 10:54 WBC 16.12 H (4.50-10.00) X 10*3/uL RBC 4.32 L (4.40-5.60) X 10*6/uL MCHC 31.9 L (32.0-37.0) g/dL Plt Count 513 H (140-440) X 10*3/uL Immature Gran # 0.49 H (0.00-0.04) X 10*3/uL Neutrophils # 12.35 H (1.80-7.70) X 10*3/uL Eosinophils # 0.37 H (0.04-0.35) X 10*3/uL Basophils # 0.11 H (0.00-0.10) X 10*3/uL POC Glucose (mg/dL) 138 H (70-110) mg/dL Assessment and Plan (1) Acute diverticulitis Current Visit: Yes Status: Acute Code(s): K57.92 - DVTRCLI OF INTEST, PART UNSP, W/O PERF OR ABSCESS W/O BLEED SNOMED Code(s): 451177961 (2) Failure of outpatient treatment Current Visit: Yes Status: Acute Code(s): Z78.9 - OTHER SPECIFIED HEALTH STATUS SNOMED Code(s): 422325092 Plan: 1patient presented to hospital with sepsis in this patient did have a fever tachycardia elevated white count source is acute complicated diverticulitis with perforation and will need to cover for the enteric gram-negative both aerobes and anaerobes. 2patient seemed to have failed medical therapy in this patient who is status post laparotomy and diverting colostomy, no OR culture were done 3-patient has shown some clinical improvement however the patient white count remains to be elevated we will recheck his inflammatory markers with a.m. lab continue with the Zosyn Time with Patient: Less than 30
[2022-07-05] MEDS ORDERED: FLUCONAZOLE 100 MG TAB PO ONE (23:00)
[2022-07-06 00:14] LABS: Glucose,Whole Blood 137 mg/dL (70-110)
[2022-07-06] MEDS: HYDROcodone/APAP 5-325MG 1 EACH TAB PO PRN ×5 (00:54→20:20)
[2022-07-06] MEDS: 1: MVI, ADULT NO.4 WITH VIT K 10 ML, TRACE (CONC-1ML/DOSE) 1 ML in AMINO ACID 5%-D20W+LY IV SCH ×6 (01:31→10:47)
[2022-07-06] MEDS: HYDROmorphone 1 MG/ML 1 ML SYRINGE IVP PRN ×6 (01:49→21:31)
[2022-07-06] MEDS: PIPERACILLIN-TAZOBACTAM 3.375 GM in SODIUM CHLORIDE 0.9% 100 ML IVPB SCH ×3 (03:47→21:04)
[2022-07-06 05:19] LABS: Glucose,Whole Blood 128 mg/dL (70-110)
[2022-07-06] MEDS: D5-0.45% NACL WITH KCL 20MEQ/L 1,000 ML IV SCH ×2 (05:52→16:43)
[2022-07-06] MEDS: DOCUSATE 100 MG CAP PO SCH ×2 (09:07→21:04)
[2022-07-06] MEDS: ENOXAPARIN 40 MG/0.4 ML SYRINGE SQ SCH (09:07)
[2022-07-06] MEDS: PANTOPRAZOLE 40 MG/10 ML VIAL IV SCH (09:08)
[2022-07-06 10:39] LABS: Basophils % (A) 0.7 %; Eosinophils # (A) 0.38 X 10*3/uL (0.04-0.35); Eosinophils % (A) 2.5 %; HCT 37.7 % (39.6-50.0); HGB 12.4 g/dL (13.0-17.0); Immature Grans, Automated 2.9 %; Lymphocytes # (A) 1.53 X 10*3/uL (0.90-5.00); MCH 30.5 pg (27.0-32.0); MCHC 32.9 g/dL (32.0-37.0); MCV 92.6 fL (80.0-97.0); Monocytes # (A) 1.16 X 10*3/uL (0.20-1.00); Monocytes % (A) 7.6 %; NRBC Per 100 WBC 0 /100 WBCS (0.0-0.0); Neutrophils # (A) 11.74 X 10*3/uL (1.80-7.70); Neutrophils % (A) 76.3 %; Platelet Count 466 X 10*3/uL (140-440); RBC 4.07 X 10*6/uL (4.40-5.60); RDW 13.8 % (11.5-14.5); WBC 15.36 X 10*3/uL (4.50-10.00)
[2022-07-06] MEDS: SIMETHICONE 40 MG/0.6 ML DROPS 2,000 MG/30 ML BOTTLE PO SCH ×4 (10:50→22:27)
[2022-07-06 11:05] LABS: African American GFR (CKD) 107.1 (60.0-200.0); Anion Gap 10.1 mmol/L (10.00-18.00); BUN/Creat Ratio 14.7 Ratio (12.00-20.00); Blood Urea Nitrogen 14.7 mg/dL (9.0-27.0); C Reactive Protein 5.9 mg/dL (0.00-0.80); Calcium 9.1 mg/dL (8.7-10.3); Carbon Dioxide 26.9 mmol/L (20.0-27.5); Magnesium 2.6 mg/dL (1.5-2.4); Non-African American GFR(CKD) 92.4 (60.0-200.0); Phosphorus 4.3 mg/dL (2.4-5.1); Potassium 4.7 mmol/L (3.5-5.5)
--- NOTE | 2022-07-06 11:15 | P.PN ---
Subjective Progress Note Date: 07/06/22 Principal diagnosis: abdominal pain Hospital Course: 41-year-old malein significant past medical history presenting with sepsis secondary to acute perforated sigmoid diverticulitis. Patient has postop day 5 status post sigmoid colectomy with end colostomy. Infectious disease also following patient. Patient remains on Zosyn with clinical improvement. Currently tolerating clear liquids, advancing to full liquids. Subjective: Patient seen and examined at bedside. No acute events overnight. Patient claims that his oral intake is slowly improving. Abdominal pain improving. His feet are more swollen today, with worsening pain. He has had gout flares in the past, which have felt similar to this. He denies any chest pain or shortness of breath or urinary complaints. Pertinent positives and negatives as discussed above, a complete review of systems was performed and all other systems are negative. Vitals Signs Reviewed. General: nontoxic, no distress, appears at stated age Derm: warm, dry Head: atraumatic, normocephalic, symmetric Eyes: EOMI, no lid lag, anicteric sclera Mouth: no lip lesion, mucus membranes moist Cardiovascular: S1S2 reg, no murmur Lungs: CTA bilateral, no rhonchi, no rales , no accessory muscle use Abdominal: soft, mild tenderness to palpation all quadrants, no guarding, no appreciable organomegaly, midline incision covered in dressing, left sided colostomy with stool Ext: no gross muscle atrophy, no contractures, bilateral dorsal foot tenderness and swelling, no MTP swelling bilaterally. Neuro: CN II-XI grossly intact, no focal neuro deficits Psych: Alert, oriented, appropriate affect Assessment and Plan: Sepsis Perforated sigmoid diverticulitis with pneumoperitoneum Leukocytosis -Status post sigmoid colectomy with end colostomy on 06/29 -Surgery following -Infectious disease following -Blood cultures negative -Continue Zosyn, improving clinically -Slowly advance diet, on full liquids -Pain control Feet pain and edema, bilateral - gout vs pseudogout vs immobilization vs venous stasis - xrays pending - ibuprofen for pain Impaired perfusion to the right upper pole kidney, seen on CT -Evaluated by urology, no further management needed Morbid obesity -Counseled regarding lifestyle modifications -Needs outpatient follow Generalized weakness -PT/OT F: D5 half-normal at 80 mL an hour E: Replete as needed N: full liquids A: As tolerated DVT ppx: Lovenox Code status: Full code Anticipated discharge place: Home Anticipated discharge time: 2-3 days Objective - Vital Signs Vital signs: Vital Signs Temp 97.6 F 07/06/22 07:52 Pulse 91 07/06/22 07:52 Resp 16 07/06/22 07:52 BP 135/78 07/06/22 07:52 Pulse Ox 96 07/06/22 07:52 FiO2 Intake & Output 07/05/22 07/06/22 07/06/22 18:59 06:59 18:59 Intake Total 1000 1011 Output Total 670 1895 1100 Balance 330 -884 -1100 Intake: Intake, IV Titration 1000 1011 Amount Amino Acid 5%-D20w+Lytes* 1000 E* 1,000 ml @ 100 mls/hr IV .BY DURATION [facility] Rx#: [id number] Mvi, Adult No.4 with Vit 1011 K 10 ml Trace (Conc-1Ml/ Dose) 1 ml In Amino Acid 5%-D20w+Lytes*E* 1,000 ml @ 100 mls/hr IV .BY DURATION [facility] Rx#: [id number] Output: Drainage 20 20 Right Abdomen 20 20 Urine 650 1875 1100 Other: Voiding Method Toilet Toilet Urinal Urinal Urinal # Voids 3 3 2 - Labs CBC & Chem 7: 07/06/22 06:07 07/05/22 06:11 Labs: Abnormal Lab Results - Last 24 Hours (Table) 07/05/22 07/05/22 07/06/22 Range/Units 06:11 17:11 00:03 WBC (4.50-10.00) X 10*3/uL RBC (4.40-5.60) X 10*6/uL Hgb (13.0-17.0) g/dL Hct (39.6-50.0) % Plt Count (140-440) X 10*3/uL Immature Gran # (0.00-0.04) X 10*3/uL Neutrophils # (1.80-7.70) X 10*3/uL Monocytes # (0.20-1.00) X 10*3/uL Eosinophils # (0.04-0.35) X 10*3/uL Glucose 120 H (70-110) mg/dL POC Glucose (mg/dL) 125 H 137 H (70-110) mg/dL 07/06/22 07/06/22 Range/Units 05:17 06:07 WBC 15.36 H (4.50-10.00) X 10*3/uL RBC 4.07 L (4.40-5.60) X 10*6/uL Hgb 12.4 L (13.0-17.0) g/dL Hct 37.7 L (39.6-50.0) % Plt Count 466 H (140-440) X 10*3/uL Immature Gran # 0.45 H (0.00-0.04) X 10*3/uL Neutrophils # 11.74 H (1.80-7.70) X 10*3/uL Monocytes # 1.16 H (0.20-1.00) X 10*3/uL Eosinophils # 0.38 H (0.04-0.35) X 10*3/uL Glucose (70-110) mg/dL POC Glucose (mg/dL) 128 H (70-110) mg/dL
--- NOTE | 2022-07-06 11:41 | P.PN ---
Subjective Progress Note Date: 07/06/22 CHIEF COMPLAINT: Perforated Diverticulitis HISTORY OF PRESENT ILLNESS: Patient is postop day #6 status post sigmoid colectomy with end colostomy for perforated sigmoid diverticulitis. Patient complains that his feet hurt worse then his abdominal pain. He reports improvement in his abdominal pain. Denies any nausea vomiting. He is currently on a full liquid diet. However, he is mostly eating only the clear liquids he does not tolerate dairy products. Again he is complaining of pain on the dorsal aspects of his feet. He reports that it's similar to his previous gout attacks. He was supposed to be started on allopurinol in the outpatient setting for an elevated uric acid level. TAMMY drain 20 mL serosanguineous output this morning. Afebrile. WBC trending downwards 15.36 Hgb 12.4 platelets 466 creatinine 1.0 CRP 5.90 PHYSICAL EXAM: VITAL SIGNS: Reviewed. GENERAL: Well-developed in no acute distress. ABDOMEN: Soft. Nondistended. Incision clean dry and intact. [address] serosanguineous drainage. bridger pink stool and air noted in ostomy bag NEUROLOGIC: Alert and oriented. Cranial nerves II through XII grossly intact. Extremities: patient is tenderness to palpation of the dorsal aspect of his feet. There is some erythema noted more on the right than the left. Minimal swelling. No calf tenderness. ASSESSMENT: 1. Perforated sigmoid diverticulitis status post sigmoid colectomy with end colostomy 2. Leukocytosis 3. Moderate protein calorie malnutrition PLAN: -Continue Full Liquid diet with no dairy products -Check uric acid level -Notified medicine service regarding possible gout flare up. Will await their further recommendations -Continue pain medication -Continue IV antibiotics -Encouraged patient to increase activity level -Encouraged patient to use incentive spirometer -GI prophylaxis Protonix and DVT prophylaxis subcu heparin Physician Hair Or Beauty Salon Assistant note has been reviewed by physician. Signing provider agrees with the documented findings, assessment, and plan of care. I have personally seen and examined the patient, reviewed the MUD MIXER OPERATOR /PAs history, exam and MDM and agree with the assessment and plan as written. Based on total visit time, I have performed more than 50% of the visit. As above: Patient complaining of bilateral foot pain. He states this is very similar to previous attacks of gout that he has had. Denies calf or thigh discomfort. Tolerating diet. We'll advance diet. Initiate gout treatment. Objective - Vital Signs Vital signs: Vital Signs Temp 97.6 F 07/06/22 07:52 Pulse 91 07/06/22 07:52 Resp 16 07/06/22 07:52 BP 135/78 07/06/22 07:52 Pulse Ox 96 07/06/22 07:52 FiO2 Intake & Output 07/05/22 07/06/22 07/06/22 18:59 06:59 18:59 Intake Total 1000 1011 Output Total 670 1895 1100 Balance 330 -884 -1100 Intake: Intake, IV Titration 1000 1011 Amount Amino Acid 5%-D20w+Lytes* 1000 E* 1,000 ml @ 100 mls/hr IV .BY DURATION [facility] Rx#: [id number] Mvi, Adult No.4 with Vit 1011 K 10 ml Trace (Conc-1Ml/ Dose) 1 ml In Amino Acid 5%-D20w+Lytes*E* 1,000 ml @ 100 mls/hr IV .BY DURATION [facility] Rx#: [id number] Output: Drainage 20 20 Right Abdomen 20 20 Urine 650 1875 1100 Other: Voiding Method Toilet Toilet Urinal Urinal Urinal # Voids 3 3 2 - Labs CBC & Chem 7: 07/06/22 06:07 07/06/22 06:07 Labs: Abnormal Lab Results - Last 24 Hours (Table) 07/05/22 07/05/22 07/06/22 Range/Units 06:11 17:11 00:03 WBC (4.50-10.00) X 10*3/uL RBC (4.40-5.60) X 10*6/uL Hgb (13.0-17.0) g/dL Hct (39.6-50.0) % Plt Count (140-440) X 10*3/uL Immature Gran # (0.00-0.04) X 10*3/uL Neutrophils # (1.80-7.70) X 10*3/uL Monocytes # (0.20-1.00) X 10*3/uL Eosinophils # (0.04-0.35) X 10*3/uL Glucose 120 H (70-110) mg/dL POC Glucose (mg/dL) 125 H 137 H (70-110) mg/dL Magnesium (1.5-2.4) mg/dL C-Reactive Protein (0.00-0.80) mg/dL 07/06/22 07/06/22 07/06/22 Range/Units 05:17 06:07 06:07 WBC 15.36 H (4.50-10.00) X 10*3/uL RBC 4.07 L (4.40-5.60) X 10*6/uL Hgb 12.4 L (13.0-17.0) g/dL Hct 37.7 L (39.6-50.0) % Plt Count 466 H (140-440) X 10*3/uL Immature Gran # 0.45 H (0.00-0.04) X 10*3/uL Neutrophils # 11.74 H (1.80-7.70) X 10*3/uL Monocytes # 1.16 H (0.20-1.00) X 10*3/uL Eosinophils # 0.38 H (0.04-0.35) X 10*3/uL Glucose 138 H (70-110) mg/dL POC Glucose (mg/dL) 128 H (70-110) mg/dL Magnesium 2.6 H (1.5-2.4) mg/dL C-Reactive Protein 5.90 H (0.00-0.80) mg/dL
[2022-07-06 11:52] LABS: Glucose,Whole Blood 131 mg/dL (70-110)
--- NOTE | 2022-07-06 12:04 | XR ---
EXAMINATION TYPE: XR foot complete bilateral DATE OF EXAM: 07/06/2022 11:32 AM INDICATION: Patient age:Male; 41 years old; Reason for study: swelling and pain; COMPARISON: None TECHNIQUE: Bilateral feet were examined in the AP, oblique, and lateral projections. FINDINGS: Left: No evidence of any acute osseous pathology. . Joints are preserved. Accessory ossicle next to the cuboid bone on the left. Calcaneal Achilles enthesophyte and plantar sp urring present. Soft tissue swelling around the foot is noted most pronounced in the dorsal aspect. Right: No evidence of any acute osseous pathology. No evidence of soft tissue swelling. Joints are p reserved. Accessory ossicle next to the cuboid bone on the left. Calcaneal Achilles enthesophyte and plantar sp urring present. IMPRESSION: 1. No evidence of acute fracture. 2. Soft tissue swelling of the feet.
[2022-07-06] MEDS: FLUCONAZOLE 100 MG TAB PO SCH (13:42)
[2022-07-06] MEDS: SODIUM CHLORIDE 0.9% 1,000 ML IV SCH (16:43)
[2022-07-06 18:08] LABS: Glucose,Whole Blood 128 mg/dL (70-110)
[2022-07-06] MEDS: IBUPROFEN 600 MG TAB PO PRN (19:37)
[2022-07-06] MEDS: 1: MVI, ADULT NO.4 WITH VIT K 10 ML, TRACE (CONC-1ML/DOSE) 1 ML, SODIUM CHLORIDE 4MEQ/ML IV SCH ×7 (21:34)
[2022-07-07 00:16] LABS: Glucose,Whole Blood 146 mg/dL (70-110)
[2022-07-07] MEDS: HYDROmorphone 1 MG/ML 1 ML SYRINGE IVP PRN ×5 (00:16→18:56)
[2022-07-07] MEDS: HYDROcodone/APAP 5-325MG 1 EACH TAB PO PRN ×6 (02:06→22:24)
[2022-07-07] MEDS: ONDANSETRON 4 MG/2 ML VIAL IVP PRN (04:09)
[2022-07-07] MEDS: PIPERACILLIN-TAZOBACTAM 3.375 GM in SODIUM CHLORIDE 0.9% 100 ML IVPB SCH ×3 (04:09→21:23)
[2022-07-07 06:16] LABS: Glucose,Whole Blood 131 mg/dL (70-110)
[2022-07-07] MEDS: 1: MVI, ADULT NO.4 WITH VIT K 10 ML, TRACE (CONC-1ML/DOSE) 1 ML in AMINO ACID 5%-D20W+LY IV SCH ×3 (06:48)
[2022-07-07] MEDS: D5-0.45% NACL WITH KCL 20MEQ/L 1,000 ML IV SCH ×2 (06:49→16:40)
[2022-07-07] MEDS: 1: MVI, ADULT NO.4 WITH VIT K 10 ML, TRACE (CONC-1ML/DOSE) 1 ML, SODIUM CHLORIDE 4MEQ/ML IV SCH ×22 (07:33→16:39)
[2022-07-07 08:00] LABS: African American GFR (CKD) >90 (>60 ml/min/1.73 sqM); Anion Gap 12 mmol/L; Blood Urea Nitrogen 16 mg/dL (9-20); Calcium 8.9 mg/dL (8.4-10.2); Carbon Dioxide 27 mmol/L (22-30); Chloride 96 mmol/L (98-107); Glucose 147 mg/dL (74-99); Magnesium 2.1 mg/dL (1.6-2.3); Non-African American GFR(CKD) >90 (>60 ml/min/1.73 sqM); Phosphorus 4.5 mg/dL (2.5-4.5); Potassium 4.6 mmol/L (3.5-5.1); Sodium 135 mmol/L (137-145)
[2022-07-07] MEDS: IBUPROFEN 600 MG TAB PO PRN (09:55)
[2022-07-07] MEDS: DOCUSATE 100 MG CAP PO SCH ×2 (09:56→21:24)
[2022-07-07] MEDS: ENOXAPARIN 40 MG/0.4 ML SYRINGE SQ SCH (09:56)
[2022-07-07] MEDS: PANTOPRAZOLE 40 MG/10 ML VIAL IV SCH (09:56)
[2022-07-07] MEDS: SIMETHICONE 40 MG/0.6 ML DROPS 2,000 MG/30 ML BOTTLE PO SCH ×4 (10:04→22:23)
--- NOTE | 2022-07-07 10:55 | P.PN ---
Subjective Progress Note Date: 07/07/22 CHIEF COMPLAINT: Perforated Diverticulitis HISTORY OF PRESENT ILLNESS: Patient is postop day #7 status post sigmoid colectomy with end colostomy for perforated sigmoid diverticulitis. Patient complaining again mostly of feet pain. Home reports that the pain is slightly less than yesterday. Medicine service did add ibuprofen. Patient continues to have improvement in his abdominal pain. Ostomy is functioning. Denies any nausea or vomiting. TAMMY drain 10 mL serosanguineous output. afebrile. Uric acid low at 3.0 PHYSICAL EXAM: VITAL SIGNS: Reviewed. GENERAL: Well-developed in no acute distress. ABDOMEN: Soft. Nondistended. Incision clean dry and intact. 3 abdominal cheri with serosanguineous drainage. stoma pink. stool noted in ostomy bag NEUROLOGIC: Alert and oriented. Cranial nerves II through XII grossly intact. Extremities: patient is tenderness to palpation of the dorsal aspect of his feet. Patient started to have erythema on the left great toe ASSESSMENT: 1. Perforated sigmoid diverticulitis status post sigmoid colectomy with end colostomy 2. Leukocytosis 3. Moderate protein calorie malnutrition PLAN: -Continue Full Liquid diet with no dairy products -Medicine service to manage patient's bilateral feet pain and possible gout -Continue pain medication -Continue IV antibiotics -Encouraged patient to increase activity level -Encouraged patient to use incentive spirometer -GI prophylaxis Protonix and DVT prophylaxis subcu lovenox Physician Staff Physical Therapist note has been reviewed by physician. Signing provider agrees with the documented findings, assessment, and plan of care. I have personally seen and examined the patient, reviewed the MEDICAL IMAGING TECHNICIAN /PAs history, exam and MDM and agree with the assessment and plan as written. Based on total visit time, I have performed more than 50% of the visit. As above: Patient still complaining of foot pain bilaterally. More erythema over the toe. He is tolerating his diet. We'll advance to low fiber diet at this time. Remove TAMMY drain. Continue local wound care at wick sites. Will begin low-dose IV steroids for suspected gout. Objective - Vital Signs Vital signs: Vital Signs Temp 98.2 F 07/07/22 04:05 Pulse 84 07/07/22 04:05 Resp 16 07/07/22 04:05 BP 127/80 07/07/22 04:05 Pulse Ox 96 07/07/22 04:05 FiO2 Intake & Output 07/06/22 07/07/22 07/07/22 18:59 06:59 18:59 Output Total 1700 1110 Balance -1700 -1110 Output: Drainage 10 Right Abdomen 10 Urine 1700 1100 Other: Voiding Method Urinal Urinal # Voids 4 # Bowel Movements 1 - Labs CBC & Chem 7: 07/07/22 07:29 07/07/22 07:29 Labs: Abnormal Lab Results - Last 24 Hours (Table) 07/06/22 07/06/22 07/06/22 Range/Units 06:07 06:07 11:50 Sodium (137-145) mmol/L Chloride (98-107) mmol/L Glucose 138 H (70-110) mg/dL POC Glucose (mg/dL) 131 H (70-110) mg/dL Uric Acid 3.0 L (3.7-8.7) mg/dL Magnesium 2.6 H (1.5-2.4) mg/dL C-Reactive Protein 5.90 H (0.00-0.80) mg/dL 07/06/22 07/07/22 07/07/22 Range/Units 18:06 00:13 06:14 Sodium (137-145) mmol/L Chloride (98-107) mmol/L Glucose (70-110) mg/dL POC Glucose (mg/dL) 128 H 146 H 131 H (70-110) mg/dL Uric Acid (3.7-8.7) mg/dL Magnesium (1.5-2.4) mg/dL C-Reactive Protein (0.00-0.80) mg/dL 07/07/22 Range/Units 07:29 Sodium 135 L (137-145) mmol/L Chloride 96 L (98-107) mmol/L Glucose 147 H (70-110) mg/dL POC Glucose (mg/dL) (70-110) mg/dL Uric Acid (3.7-8.7) mg/dL Magnesium (1.5-2.4) mg/dL C-Reactive Protein (0.00-0.80) mg/dL
[2022-07-07 11:00] LABS: Basophils % (A) 0.7 %; Eosinophils # (A) 0.37 X 10*3/uL (0.04-0.35); Eosinophils % (A) 2.5 %; HCT 37.8 % (39.6-50.0); HGB 12.3 g/dL (13.0-17.0); Immature Grans, Automated 3.1 %; Lymphocytes # (A) 1.45 X 10*3/uL (0.90-5.00); Lymphocytes % (A) 9.9 %; MCH 30.4 pg (27.0-32.0); MCHC 32.5 g/dL (32.0-37.0); MCV 93.6 fL (80.0-97.0); Mean Platelet Volume 10.2 fL (9.5-12.2); Monocytes # (A) 1.39 X 10*3/uL (0.20-1.00); Monocytes % (A) 9.5 %; NRBC Per 100 WBC 0 /100 WBCS (0.0-0.0); Neutrophils # (A) 10.84 X 10*3/uL (1.80-7.70); Neutrophils % (A) 74.3 %; Platelet Count 422 X 10*3/uL (140-440); RBC 4.04 X 10*6/uL (4.40-5.60); RDW 13.3 % (11.5-14.5); WBC 14.61 X 10*3/uL (4.50-10.00)
[2022-07-07] MEDS: FLUCONAZOLE 100 MG TAB PO SCH (11:02)
[2022-07-07 11:37] LABS: Glucose,Whole Blood 148 mg/dL (70-110)
--- NOTE | 2022-07-07 12:46 | P.PN ---
Subjective Progress Note Date: 07/07/22 Principal diagnosis: abdominal pain Hospital Course: 41-year-old male without significant past medical history presenting with sepsis secondary to acute perforated sigmoid diverticulitis. Patient is status post sigmoid colectomy with end colostomy. Infectious disease also following patient. Patient remains on Zosyn with clinical improvement. Currently to lerating full liquids. Subjective: Patient seen and examined at bedside. No acute events overnight. Patient claims that his oral intake is slowly improving. Abdominal pain improving. He continues to complain about foot pain L>R. He is having trouble ambulating due to pain. He denies any chest pain or shortness of breath or urinary complaints. Pertinent positives and negatives as discussed above, a complete review of systems was performed and all other systems are negative. Vitals Signs Reviewed. General: nontoxic, no distress, appears at stated age Derm: warm, dry Head: atraumatic, normocephalic, symmetric Eyes: EOMI, no lid lag, anicteric sclera Mouth: no lip lesion, mucus membranes moist Cardiovascular: S1S2 reg, no murmur Lungs: CTA bilateral, no rhonchi, no rales , no accessory muscle use Abdominal: soft, mild tenderness to palpation all quadrants, no guarding, no appreciable organomegaly, midline incision covered in dressing, left sided colostomy with stool Ext: no gross muscle atrophy, no contractures, bilateral dorsal foot tenderness and swelling, no MTP swelling bilaterally Neuro: CN II-XI grossly intact, no focal neuro deficits Psych: Alert, oriented, appropriate affect Assessment and Plan: Sepsis Perforated sigmoid diverticulitis with pneumoperitoneum Leukocytosis -Status post sigmoid colectomy with end colostomy on 06/29 -Surgery following -Infectious disease following -Blood cultures negative -Continue Zosyn, improving clinically -Slowly advance diet, on full liquids -also on TPN, on fluconazole -Pain control Feet pain and edema, bilateral - gout vs pseudogout vs immobilization vs venous stasis - xrays - no acute fracture, soft tissue swelling - ibuprofen for pain - ortho consulted Impaired perfusion to the right upper pole kidney, seen on CT -Evaluated by urology, no further management needed Morbid obesity -Counseled regarding lifestyle modifications -Needs outpatient follow Generalized weakness -PT/OT F: TPN E: Replete as needed N: full liquids, and TPN A: As tolerated DVT ppx: Lovenox Code status: Full code Anticipated discharge place: Home Anticipated discharge time: 2-3 days Objective - Vital Signs Vital signs: Vital Signs Temp 98.5 F 07/07/22 11:34 Pulse 88 07/07/22 11:34 Resp 17 07/07/22 11:34 BP 143/88 07/07/22 11:34 Pulse Ox 95 07/07/22 11:34 FiO2 Intake & Output 07/06/22 07/07/22 07/07/22 18:59 06:59 18:59 Output Total 1700 1110 200 Balance -1700 -1110 -200 Output: Drainage 10 Right Abdomen 10 Urine 1700 1100 Stool 200 Other: Voiding Method Urinal Urinal # Voids 4 4 # Bowel Movements 1 - Labs CBC & Chem 7: 07/07/22 07:29 07/07/22 07:29 Labs: Abnormal Lab Results - Last 24 Hours (Table) 07/06/22 07/06/22 07/07/22 Range/Units 06:07 18:06 00:13 WBC (4.50-10.00) X 10*3/uL RBC (4.40-5.60) X 10*6/uL Hgb (13.0-17.0) g/dL Hct (39.6-50.0) % Immature Gran # (0.00-0.04) X 10*3/uL Neutrophils # (1.80-7.70) X 10*3/uL Monocytes # (0.20-1.00) X 10*3/uL Eosinophils # (0.04-0.35) X 10*3/uL Sodium (137-145) mmol/L Chloride (98-107) mmol/L Glucose (74-99) mg/dL POC Glucose (mg/dL) 128 H 146 H (70-110) mg/dL Uric Acid 3.0 L (3.7-8.7) mg/dL 07/07/22 07/07/22 07/07/22 Range/Units 06:14 07:29 07:29 WBC 14.61 H (4.50-10.00) X 10*3/uL RBC 4.04 L (4.40-5.60) X 10*6/uL Hgb 12.3 L (13.0-17.0) g/dL Hct 37.8 L (39.6-50.0) % Immature Gran # 0.46 H (0.00-0.04) X 10*3/uL Neutrophils # 10.84 H (1.80-7.70) X 10*3/uL Monocytes # 1.39 H (0.20-1.00) X 10*3/uL Eosinophils # 0.37 H (0.04-0.35) X 10*3/uL Sodium 135 L (137-145) mmol/L Chloride 96 L (98-107) mmol/L Glucose 147 H (74-99) mg/dL POC Glucose (mg/dL) 131 H (70-110) mg/dL Uric Acid (3.7-8.7) mg/dL 07/07/22 Range/Units 11:35 WBC (4.50-10.00) X 10*3/uL RBC (4.40-5.60) X 10*6/uL Hgb (13.0-17.0) g/dL Hct (39.6-50.0) % Immature Gran # (0.00-0.04) X 10*3/uL Neutrophils # (1.80-7.70) X 10*3/uL Monocytes # (0.20-1.00) X 10*3/uL Eosinophils # (0.04-0.35) X 10*3/uL Sodium (137-145) mmol/L Chloride (98-107) mmol/L Glucose (74-99) mg/dL POC Glucose (mg/dL) 148 H (70-110) mg/dL Uric Acid (3.7-8.7) mg/dL
--- NOTE | 2022-07-07 15:08 | P.CNOR ---
History of Present Illness - [facility] Consult date: 07/07/22 Consult reason: joint pain (Left foot pain and swelling) History of present illness: Patient is a 41-year-old male who has been admitted to [facility] for about 2 weeks with regards to abdominal issues. He is being followed by multiple medical specialties. Patient did note today he has had lili e discomfort in the ankle/foot region along with swelling. X-ray of the foot was done, our orthopedic team was consulted. Patient was evaluated today at bedside, he is resting comfortably in his hos pital bed. Patient states that he's had no recent trauma, like stated above he's been in the hospital later that her about 2 weeks with significant abdominal issues. Patient states he does have a previous history of gout. He does not take allopurinol currently. He has a holistic-type medication that he does utilize on occasion. Patient states that the pain initially was in the ankle and migrated to the top of the foot and then has progressed to the big toe. Patient notes it more on the left lower extremity than the right lower extremity. States that prior to his hospital admission he was dealing with some gout in his left knee. Patient denies any previous orthopedic surgery to the le ft foot/ankle. Besides the swelling and discomfort in the foot he has no other orthopedic complaints at this time. Review of Systems Constitutional: Reports as per [facility] Past Medical History Past Medical History: No Reported History History of Any Multi-Drug Resistant Organisms: None Reported Past Surgical History: Cholecystectomy, Orthopedic Surgery Additional Past Surgical History / Comment(s): sinus Past Anesthesia/Blood Transfusion Reactions: No Reported Reaction Additional Past Anesthesia/Blood Transfusion Reaction / Comm: Nauea Past Psychological History: No Psychological Hx Reported Smoking Status: Never smoker Past Alcohol Use History: None Reported Past Drug Use History: None Reported Medications and Allergies Home Medications Medication Instructions Recorded Confirmed Type Omeprazole 20 mg PO DAILY 04/05/21 06/22/22 History Amoxic-Pot Clav 875-125Mg 1 tab PO Q12HR #20 tab 06/21/22 06/22/22 Rx [Augmentin 875-125] Ondansetron Odt [Zofran Odt] 4 mg PO Q8HR PRN #10 tab 06/21/22 06/22/22 Rx Testosterone Cypionate 200 mg IM Q14D 06/21/22 06/22/22 History [Depo-Testosterone] Allergies Allergy/AdvReac Type Severity Reaction Status Date / Time No Known Allergies Allergy Verified 06/22/22 16:06 Physical Examination Left lower extremity: Obvious open lesions or sores are visualized throughout the extremity There is some mild erythema noted on the dorsum of the foot and near the great big toe. There is some mild soft tissue swelling in the dorsum of the midfoot and forefoot. No obvious fluctuance is appreciated on exam surrounding the ankle and foot on the left side Patient demonstrates mild tenderness with palpation on the dorsum of the foot, he does demonstrate significant tenderness with palpation of the great toe. Patient is nontender with palpation to the medial and lateral malleolus, is nontender with palpation to the lower leg and knee Passive range of motion of the hip and knee reproduced no pain. Plantar flexion dorsiflexion are intact, minimal discomfort is reproduced. EHL and FHL are intact, there is pain with movement Calf is soft, no tenderness with palpation Sensory exam to light touch is intact throughout the extremity, dorsalis pedis pulses 2+ Results - Labs Labs: Abnormal Lab Results - Last 24 Hours (Table) 07/06/22 07/06/22 07/07/22 Range/Units 06:07 18:06 00:13 WBC (4.50-10.00) X 10*3/uL RBC (4.40-5.60) X 10*6/uL Hgb (13.0-17.0) g/dL Hct (39.6-50.0) % Immature Gran # (0.00-0.04) X 10*3/uL Neutrophils # (1.80-7.70) X 10*3/uL Monocytes # (0.20-1.00) X 10*3/uL Eosinophils # (0.04-0.35) X 10*3/uL Sodium (137-145) mmol/L Chloride (98-107) mmol/L Glucose (74-99) mg/dL POC Glucose (mg/dL) 128 H 146 H (70-110) mg/dL Uric Acid 3.0 L (3.7-8.7) mg/dL 07/07/22 07/07/22 07/07/22 Range/Units 06:14 07:29 07:29 WBC 14.61 H (4.50-10.00) X 10*3/uL RBC 4.04 L (4.40-5.60) X 10*6/uL Hgb 12.3 L (13.0-17.0) g/dL Hct 37.8 L (39.6-50.0) % Immature Gran # 0.46 H (0.00-0.04) X 10*3/uL Neutrophils # 10.84 H (1.80-7.70) X 10*3/uL Monocytes # 1.39 H (0.20-1.00) X 10*3/uL Eosinophils # 0.37 H (0.04-0.35) X 10*3/uL Sodium 135 L (137-145) mmol/L Chloride 96 L (98-107) mmol/L Glucose 147 H (74-99) mg/dL POC Glucose (mg/dL) 131 H (70-110) mg/dL Uric Acid (3.7-8.7) mg/dL 07/07/22 Range/Units 11:35 WBC (4.50-10.00) X 10*3/uL RBC (4.40-5.60) X 10*6/uL Hgb (13.0-17.0) g/dL Hct (39.6-50.0) % Immature Gran # (0.00-0.04) X 10*3/uL Neutrophils # (1.80-7.70) X 10*3/uL Monocytes # (0.20-1.00) X 10*3/uL Eosinophils # (0.04-0.35) X 10*3/uL Sodium (137-145) mmol/L Chloride (98-107) mmol/L Glucose (74-99) mg/dL POC Glucose (mg/dL) 148 H (70-110) mg/dL Uric Acid (3.7-8.7) mg/dL H & H 06/22/22 06/23/22 06/24/22 Range/Units 14:43 06:21 06:48 Hgb 14.6 13.6 13.2 (13.0-17.5) gm/dL Hct 45.7 41.9 40.8 (39.0-53.0) % 06/25/22 06/26/22 06/27/22 Range/Units 06:54 05:16 05:18 Hgb 11.9 L 12.1 L 12.7 L (13.0-17.5) gm/dL Hct 36.1 L 36.1 L 38.4 L (39.0-53.0) % 06/28/22 06/29/22 06/30/22 Range/Units 06:45 05:27 08:08 Hgb 12.8 L 13.3 13.1 (13.0-17.5) gm/dL Hct 38.1 L 38.8 L 38.9 L (39.0-53.0) % 07/01/22 07/03/22 07/04/22 Range/Units 05:34 06:06 05:14 Hgb 12.7 L 13.0 13.1 (13.0-17.5) gm/dL Hct 38.5 L 38.8 L 38.9 L (39.0-53.0) % 07/05/22 07/06/22 07/07/22 Range/Units 06:11 06:07 07:29 Hgb 13.0 12.4 L 12.3 L (13.0-17.5) gm/dL Hct 40.7 37.7 L 37.8 L (39.0-53.0) % Coagulation 06/23/22 Range/Units 09:00 INR 1.2 H (<1.2) Result Diagrams: 07/07/22 07:29 07/07/22 07:29 - Diagnostic results Ankle/Foot x-ray: report reviewed, image reviewed (Images and reports reviewed of the left foot. Images demonstrated no acute fractures or dislocations. No acute osseous abnormalities appreciated.) Assessment and Plan Assessment: Left foot pain Left foot swelling Left foot gouty arthropathy Other medical comorbidities Plan: I was able to discuss the case, this including both physical exam findings and imaging studies with my attending Dr. Samayoa. No orthopedic surgical intervention is recommended at this time This patient's recent abdominal surgery, defer medical treatment to primary team. Patient states that he has taken a few doses of ibuprofen which seemed to have helped significantly. Weight-bear as tolerated Ice and elevate the extremity to help alleviate symptoms GI and DVT prophylaxis per primary medical service Other expert medical writer and recommendations Orthopedically patient is stable, please contact our service with any questions regarding patient. Time with Patient: Less than 30
[2022-07-07] MEDS: methylPREDNISolone SOD SUCCI 125 MG/2 ML VIAL IV SCH ×2 (15:26→22:23)
[2022-07-07 17:58] LABS: Glucose,Whole Blood 108 mg/dL (70-110)
[2022-07-07] MEDS: SODIUM CHLORIDE 0.9% 1,000 ML IV SCH (18:01)
[2022-07-07] MEDS: IBUPROFEN 800 MG TAB PO SCH (18:48)
[2022-07-08] MEDS: 1: MVI, ADULT NO.4 WITH VIT K 10 ML, TRACE (CONC-1ML/DOSE) 1 ML, SODIUM CHLORIDE 4MEQ/ML IV SCH ×16 (00:18→06:55)
[2022-07-08] MEDS: HYDROmorphone 1 MG/ML 1 ML SYRINGE IVP PRN ×4 (00:29→21:05)
[2022-07-08] MEDS: HYDROcodone/APAP 5-325MG 1 EACH TAB PO PRN ×3 (03:49→17:29)
[2022-07-08] MEDS: PIPERACILLIN-TAZOBACTAM 3.375 GM in SODIUM CHLORIDE 0.9% 100 ML IVPB SCH ×3 (05:31→19:52)
[2022-07-08 05:59] LABS: Glucose,Whole Blood 140 mg/dL (70-110)
[2022-07-08] MEDS: SIMETHICONE 40 MG/0.6 ML DROPS 2,000 MG/30 ML BOTTLE PO SCH ×4 (06:11→21:07)
[2022-07-08] MEDS: D5-0.45% NACL WITH KCL 20MEQ/L 1,000 ML IV SCH (06:56)
[2022-07-08 08:12] LABS: African American GFR (CKD) >90 (>60 ml/min/1.73 sqM); Anion Gap 14 mmol/L; Blood Urea Nitrogen 21 mg/dL (9-20); Calcium 9.7 mg/dL (8.4-10.2); Carbon Dioxide 26 mmol/L (22-30); Chloride 96 mmol/L (98-107); Glucose 137 mg/dL (74-99); Magnesium 2.1 mg/dL (1.6-2.3); Non-African American GFR(CKD) >90 (>60 ml/min/1.73 sqM); Phosphorus 4.3 mg/dL (2.5-4.5); Potassium 5.3 mmol/L (3.5-5.1); Sodium 136 mmol/L (137-145)
[2022-07-08] MEDS: PANTOPRAZOLE 40 MG/10 ML VIAL IV SCH (09:08)
[2022-07-08] MEDS: ENOXAPARIN 40 MG/0.4 ML SYRINGE SQ SCH (09:08)
[2022-07-08] MEDS: IBUPROFEN 800 MG TAB PO SCH ×3 (09:09→21:04)
[2022-07-08] MEDS: DOCUSATE 100 MG CAP PO SCH ×2 (09:09→21:04)
[2022-07-08] MEDS: methylPREDNISolone SOD SUCCI 125 MG/2 ML VIAL IV SCH ×2 (09:09→21:04)
[2022-07-08] MEDS: FLUCONAZOLE 100 MG TAB PO SCH (09:10)
[2022-07-08 11:14] LABS: Basophils # (A) 0.03 X 10*3/uL (0.00-0.10); Basophils % (A) 0.2 %; Eosinophils # (A) 0.04 X 10*3/uL (0.04-0.35); Eosinophils % (A) 0.2 %; HCT 38.9 % (39.6-50.0); HGB 12.9 g/dL (13.0-17.0); Immature Grans, Automated 1.2 %; Lymphocytes # (A) 0.97 X 10*3/uL (0.90-5.00); Lymphocytes % (A) 5.3 %; MCH 30.9 pg (27.0-32.0); MCHC 33.2 g/dL (32.0-37.0); MCV 93.1 fL (80.0-97.0); Mean Platelet Volume 10.4 fL (9.5-12.2); Monocytes % (A) 2.2 %; NRBC Per 100 WBC 0 /100 WBCS (0.0-0.0); Neutrophils # (A) 16.59 X 10*3/uL (1.80-7.70); Neutrophils % (A) 90.9 %; Platelet Count 474 X 10*3/uL (140-440); RBC 4.18 X 10*6/uL (4.40-5.60); RDW 13.2 % (11.5-14.5); WBC 18.25 X 10*3/uL (4.50-10.00)
[2022-07-08 12:44] LABS: Glucose,Whole Blood 128 mg/dL (70-110)
--- NOTE | 2022-07-08 13:32 | P.PN ---
Subjective Progress Note Date: 07/08/22 CHIEF COMPLAINT: Perforated Diverticulitis HISTORY OF PRESENT ILLNESS: Patient is postop day #8 status post sigmoid colectomy with end colostomy for perforated sigmoid diverticulitis. Patient started on IV steroids yesterday for possible gout in his feet. Patient also on Motrin per medicine service. Patient starting to report improvement in his feet. He was able to ambulate in the hallway. His abdominal pain is controlled and improving each day. His ostomy is functioning. Denies any nausea vomiting. Didn't tolerate a full liquid diet this morning with some toast. TPN was discontinued yesterday. TAMMY drain discontinued yesterday. Afebrile. WBC is up from 14.61-18.25 this could be related to patient's IV steroids. Hemoglobin 12.9 Patient seen and examined with Dr. serrato who is covering for Dr. Lind PHYSICAL EXAM: VITAL SIGNS: Reviewed. GENERAL: Well-developed in no acute distress. ABDOMEN: Soft. Nondistended. Incision clean dry and intact. 3 abdominal cheri with serosanguineous drainage. stoma pink. stool noted in ostomy bag NEUROLOGIC: Alert and oriented. Cranial nerves II through XII grossly intact. Extremities: patient has less tenderness to palpation of the dorsal aspect of his feet. The erythema on the dorsal aspect of feet and left great toe have decreased. Swelling around left great toe also decreased. ASSESSMENT: 1. Perforated sigmoid diverticulitis status post sigmoid colectomy with end colostomy 2. Leukocytosis 3. Moderate protein calorie malnutrition PLAN: -Advance diet to low fiber with no dairy products -Patient is stable for discharge tomorrow from surgical standpoint -Discharge antibiotics per ID service -Hep-Lock IV fluids -Management of gout per medicine service -Continue IV steroids for gout. Further management with steroids per medicine service -Continue pain medication -Continue IV antibiotics -Encouraged patient to increase activity level -Encouraged patient to use incentive spirometer -GI prophylaxis Protonix and DVT prophylaxis subcu lovenox [employer] note has been reviewed by physician. Signing provider agrees with the documented findings, assessment, and plan of care. Objective - Vital Signs Vital signs: Vital Signs Temp 98.6 F 07/08/22 13:00 Pulse 96 07/08/22 13:00 Resp 16 07/08/22 13:00 BP 132/80 07/08/22 13:00 Pulse Ox 97 07/08/22 13:00 FiO2 Intake & Output 07/07/22 07/08/22 07/08/22 18:59 06:59 18:59 Output Total 350 1900 100 Balance -350 -1900 -100 Weight 138.346 kg 138.346 kg Output: Urine 1750 Stool 350 150 100 Other: Voiding Method Urinal Urinal # Voids 3 4 # Bowel Movements 1 - Labs CBC & Chem 7: 07/08/22 07:01 07/08/22 09:47 Labs: Abnormal Lab Results - Last 24 Hours (Table) 07/08/22 07/08/22 07/08/22 Range/Units 05:57 07:01 07:01 WBC 18.25 H (4.50-10.00) X 10*3/uL RBC 4.18 L (4.40-5.60) X 10*6/uL Hgb 12.9 L (13.0-17.0) g/dL Hct 38.9 L (39.6-50.0) % Plt Count 474 H (140-440) X 10*3/uL Immature Gran # 0.22 H (0.00-0.04) X 10*3/uL Neutrophils # 16.59 H (1.80-7.70) X 10*3/uL Sodium 136 L (137-145) mmol/L Potassium 5.3 H (3.5-5.1) mmol/L Chloride 96 L (98-107) mmol/L BUN 21 H (9-20) mg/dL Glucose 137 H (74-99) mg/dL POC Glucose (mg/dL) 140 H (70-110) mg/dL 07/08/22 Range/Units 12:41 WBC (4.50-10.00) X 10*3/uL RBC (4.40-5.60) X 10*6/uL Hgb (13.0-17.0) g/dL Hct (39.6-50.0) % Plt Count (140-440) X 10*3/uL Immature Gran # (0.00-0.04) X 10*3/uL Neutrophils # (1.80-7.70) X 10*3/uL Sodium (137-145) mmol/L Potassium (3.5-5.1) mmol/L Chloride (98-107) mmol/L BUN (9-20) mg/dL Glucose (74-99) mg/dL POC Glucose (mg/dL) 128 H (70-110) mg/dL
--- NOTE | 2022-07-08 13:48 | P.PN ---
Subjective Progress Note Date: 07/08/22 Principal diagnosis: abdominal pain Hospital Course: 41-year-old male without significant past medical history presenting with sepsis secondary to acute perforated sigmoid diverticulitis. Patient is status post sigmoid colectomy with end colostomy. Infectious disease also following patient. Patient remains on Zosyn with clinical improvement. Currently to lerating low fiber diet. Likely discharge tomorrow. Subjective: Patient seen and examined at bedside. No acute events overnight. Patient claims that his oral intake is slowly improving. Abdominal pain improving. Foot pain improving. He denies any chest pain or shortness of breath or urinary co mplaints. Pertinent positives and negatives as discussed above, a complete review of systems was performed and all other systems are negative. Vitals Signs Reviewed. General: nontoxic, no distress, appears at stated age Derm: warm, dry Head: atraumatic, normocephalic, symmetric Eyes: EOMI, no lid lag, anicteric sclera Mouth: no lip lesion, mucus membranes moist Cardiovascular: S1S2 reg, no murmur Lungs: CTA bilateral, no rhonchi, no rales , no accessory muscle use Abdominal: soft, mild tenderness to palpation all quadrants, no guarding, no appreciable organomegaly, midline incision covered in dressing, left sided colostomy with stool Ext: no gross muscle atrophy, no contractures, bilateral dorsal foot tenderness and swelling, no MTP swelling bilaterally Neuro: CN II-XI grossly intact, no focal neuro deficits Psych: Alert, oriented, appropriate affect Assessment and Plan: Sepsis Perforated sigmoid diverticulitis with pneumoperitoneum Leukocytosis -Status post sigmoid colectomy with end colostomy on 06/29 -Surgery following -Infectious disease following -Blood cultures negative -Continue Zosyn, improving clinically -Slowly advance diet, on low fiber diet - on fluconazole per ID - off TPN -Pain control Feet pain and edema, bilateral - gout vs pseudogout vs immobilization vs venous stasis - xrays - no acute fracture, soft tissue swelling - ibuprofen for pain - steroids as well - unlikely to be gout given bilateral swelling and no particular joint involvement, appears more dependent edema improving with elevation - ortho consulted - no interventions - continue current therapy - will benefit from uric acid levels as outpatient, and consideration of allupurinol if elevated Impaired perfusion to the right upper pole kidney, seen on CT -Evaluated by urology, no further management needed Morbid obesity -Counseled regarding lifestyle modifications -Needs outpatient follow Generalized weakness -PT/OT F: oral E: Replete as needed N: low fiber diet A: As tolerated DVT ppx: Lovenox Code status: Full code Anticipated discharge place: Home Anticipated discharge time: tomorrow Objective - Vital Signs Vital signs: Vital Signs Temp 98.6 F 07/08/22 13:00 Pulse 96 07/08/22 13:00 Resp 16 07/08/22 13:00 BP 132/80 07/08/22 13:00 Pulse Ox 97 07/08/22 13:00 FiO2 Intake & Output 07/07/22 07/08/22 07/08/22 18:59 06:59 18:59 Output Total 350 1900 100 Balance -350 -1900 -100 Weight 138.346 kg 138.346 kg Output: Urine 1750 Stool 350 150 100 Other: Voiding Method Urinal Urinal # Voids 3 4 # Bowel Movements 1 - Labs CBC & Chem 7: 07/08/22 07:01 07/08/22 09:47 Labs: Abnormal Lab Results - Last 24 Hours (Table) 07/08/22 07/08/22 07/08/22 Range/Units 05:57 07:01 07:01 WBC 18.25 H (4.50-10.00) X 10*3/uL RBC 4.18 L (4.40-5.60) X 10*6/uL Hgb 12.9 L (13.0-17.0) g/dL Hct 38.9 L (39.6-50.0) % Plt Count 474 H (140-440) X 10*3/uL Immature Gran # 0.22 H (0.00-0.04) X 10*3/uL Neutrophils # 16.59 H (1.80-7.70) X 10*3/uL Sodium 136 L (137-145) mmol/L Potassium 5.3 H (3.5-5.1) mmol/L Chloride 96 L (98-107) mmol/L BUN 21 H (9-20) mg/dL Glucose 137 H (74-99) mg/dL POC Glucose (mg/dL) 140 H (70-110) mg/dL 07/08/22 Range/Units 12:41 WBC (4.50-10.00) X 10*3/uL RBC (4.40-5.60) X 10*6/uL Hgb (13.0-17.0) g/dL Hct (39.6-50.0) % Plt Count (140-440) X 10*3/uL Immature Gran # (0.00-0.04) X 10*3/uL Neutrophils # (1.80-7.70) X 10*3/uL Sodium (137-145) mmol/L Potassium (3.5-5.1) mmol/L Chloride (98-107) mmol/L BUN (9-20) mg/dL Glucose (74-99) mg/dL POC Glucose (mg/dL) 128 H (70-110) mg/dL
[2022-07-08] MEDS: SODIUM CHLORIDE 0.9% 1,000 ML IV SCH (17:17)
--- NOTE | 2022-07-08 22:19 | P.PN ---
Subjective Progress Note Date: 07/06/22 Principal diagnosis: Acute complicated diverticulitis Patient is a 41-year-old male presented to the hospital with abdominal pain with a recent diagnosis of diverticulitis failing outpatient oral Augmentin therapy with repeat CAT scan shows perforation. Patient was taken to the OR 06/29/2022 status post laparotomy and diverting colostomy on today's evaluation that is 07/06/2022, the patient remains to be afebrile, the patient abdominal pain is controlled , the patient is breathing comfortably on room air, patient denies nausea, vomiting, the patient did have output in his colostomy bag, the patient denies chest pain shortness of breath or cough, patient complaining of pain mostly in the feet area concerning for gout Objective - Vital Signs Vital signs: Vital Signs Temp 98.5 F 07/06/22 11:34 Pulse 88 07/06/22 11:34 Resp 18 07/06/22 11:34 BP 128/81 07/06/22 11:34 Pulse Ox 96 07/06/22 11:34 FiO2 Intake & Output 07/05/22 07/06/22 07/06/22 18:59 06:59 18:59 Intake Total 1000 1011 Output Total 670 1895 1100 Balance 330 -174 -1100 Intake: Intake, IV Titration 1000 1011 Amount Amino Acid 5%-D20w+Lytes* 1000 E* 1,000 ml @ 100 mls/hr IV .BY DURATION [facility] Rx#: [id number] Mvi, Adult No.4 with Vit 1011 K 10 ml Trace (Conc-1Ml/ Dose) 1 ml In Amino Acid 5%-D20w+Lytes*E* 1,000 ml @ 100 mls/hr IV .BY DURATION [facility] Rx#: [id number] Output: Drainage 20 20 Right Abdomen 20 20 Urine 650 1875 1100 Other: Voiding Method Toilet Toilet Urinal Urinal Urinal # Voids 3 3 2 - Exam GENERAL DESCRIPTION: Middle-aged male lying in bed in no distress RESPIRATORY SYSTEM: Unlabored breathing , decreased breath sounds at bases HEART: S1 S2 regular rate and rhythm , ABDOMEN: Soft , no tenderness EXTREMITIES: No edema feet - Labs CBC & Chem 7: 07/08/22 07:01 07/08/22 09:47 Labs: Abnormal Lab Results - Last 24 Hours (Table) 07/05/22 07/05/22 07/06/22 Range/Units 06:11 17:11 00:03 WBC (4.50-10.00) X 10*3/uL RBC (4.40-5.60) X 10*6/uL Hgb (13.0-17.0) g/dL Hct (39.6-50.0) % Plt Count (140-440) X 10*3/uL Immature Gran # (0.00-0.04) X 10*3/uL Neutrophils # (1.80-7.70) X 10*3/uL Monocytes # (0.20-1.00) X 10*3/uL Eosinophils # (0.04-0.35) X 10*3/uL Glucose 120 H (70-110) mg/dL POC Glucose (mg/dL) 125 H 137 H (70-110) mg/dL Magnesium (1.5-2.4) mg/dL C-Reactive Protein (0.00-0.80) mg/dL 07/06/22 07/06/22 07/06/22 Range/Units 05:17 06:07 06:07 WBC 15.36 H (4.50-10.00) X 10*3/uL RBC 4.07 L (4.40-5.60) X 10*6/uL Hgb 12.4 L (13.0-17.0) g/dL Hct 37.7 L (39.6-50.0) % Plt Count 466 H (140-440) X 10*3/uL Immature Gran # 0.45 H (0.00-0.04) X 10*3/uL Neutrophils # 11.74 H (1.80-7.70) X 10*3/uL Monocytes # 1.16 H (0.20-1.00) X 10*3/uL Eosinophils # 0.38 H (0.04-0.35) X 10*3/uL Glucose 138 H (70-110) mg/dL POC Glucose (mg/dL) 128 H (70-110) mg/dL Magnesium 2.6 H (1.5-2.4) mg/dL C-Reactive Protein 5.90 H (0.00-0.80) mg/dL 07/06/22 Range/Units 11:50 WBC (4.50-10.00) X 10*3/uL RBC (4.40-5.60) X 10*6/uL Hgb (13.0-17.0) g/dL Hct (39.6-50.0) % Plt Count (140-440) X 10*3/uL Immature Gran # (0.00-0.04) X 10*3/uL Neutrophils # (1.80-7.70) X 10*3/uL Monocytes # (0.20-1.00) X 10*3/uL Eosinophils # (0.04-0.35) X 10*3/uL Glucose (70-110) mg/dL POC Glucose (mg/dL) 131 H (70-110) mg/dL Magnesium (1.5-2.4) mg/dL C-Reactive Protein (0.00-0.80) mg/dL Assessment and Plan (1) Acute diverticulitis Current Visit: Yes Status: Acute Code(s): K57.92 - DVTRCLI OF INTEST, PART UNSP, W/O PERF OR ABSCESS W/O BLEED SNOMED Code(s): 603243046 (2) Failure of outpatient treatment Current Visit: Yes Status: Acute Code(s): Z78.9 - OTHER SPECIFIED HEALTH STATUS SNOMED Code(s): 224991548 Plan: 1patient presented to hospital with sepsis in this patient did have a fever tachycardia elevated white count source is acute complicated diverticulitis with perforation and will need to cover for the enteric gram-negative both aerobes and anaerobes. 2patient seemed to have failed medical therapy in this patient who is status post laparotomy and diverting colostomy, no OR culture were done 3-patient has shown some clinical improvement however the patient white count seems to be trending down with the addition of Diflucan to continue along with the Zosyn Time with Patient: Less than 30
--- NOTE | 2022-07-08 22:21 | P.PN ---
Subjective Progress Note Date: 07/07/22 Principal diagnosis: Acute complicated diverticulitis Patient is a 41-year-old male presented to the hospital with abdominal pain with a recent diagnosis of diverticulitis failing outpatient oral Augmentin therapy with repeat CAT scan shows perforation. Patient was taken to the OR 06/29/2022 status post laparotomy and diverting colostomy on today's evaluation that is 07/07/2022, the patient denies any fever or any chills, the patient is breathing comfortably on room air, patient denies nausea, vomiting, the patient did have output in his colostomy bag, the patient denies chest pain shortness of breath or cough, Objective - Vital Signs Vital signs: Vital Signs Temp 98.5 F 07/07/22 11:34 Pulse 88 07/07/22 11:34 Resp 17 07/07/22 11:34 BP 143/88 07/07/22 11:34 Pulse Ox 95 07/07/22 11:34 FiO2 Intake & Output 07/06/22 07/07/22 07/07/22 18:59 06:59 18:59 Output Total 1700 1110 200 Balance -1700 -1110 -200 Output: Drainage 10 Right Abdomen 10 Urine 1700 1100 Stool 200 Other: Voiding Method Urinal Urinal # Voids 4 4 # Bowel Movements 1 - Exam GENERAL DESCRIPTION: Middle-aged male lying in bed in no distress RESPIRATORY SYSTEM: Unlabored breathing , decreased breath sounds at bases HEART: S1 S2 regular rate and rhythm , ABDOMEN: Soft , no tenderness EXTREMITIES: No edema feet - Labs CBC & Chem 7: 07/08/22 07:01 07/08/22 09:47 Labs: Abnormal Lab Results - Last 24 Hours (Table) 07/06/22 07/06/22 07/07/22 Range/Units 06:07 18:06 00:13 WBC (4.50-10.00) X 10*3/uL RBC (4.40-5.60) X 10*6/uL Hgb (13.0-17.0) g/dL Hct (39.6-50.0) % Immature Gran # (0.00-0.04) X 10*3/uL Neutrophils # (1.80-7.70) X 10*3/uL Monocytes # (0.20-1.00) X 10*3/uL Eosinophils # (0.04-0.35) X 10*3/uL Sodium (137-145) mmol/L Chloride (98-107) mmol/L Glucose (74-99) mg/dL POC Glucose (mg/dL) 128 H 146 H (70-110) mg/dL Uric Acid 3.0 L (3.7-8.7) mg/dL 07/07/22 07/07/22 07/07/22 Range/Units 06:14 07:29 07:29 WBC 14.61 H (4.50-10.00) X 10*3/uL RBC 4.04 L (4.40-5.60) X 10*6/uL Hgb 12.3 L (13.0-17.0) g/dL Hct 37.8 L (39.6-50.0) % Immature Gran # 0.46 H (0.00-0.04) X 10*3/uL Neutrophils # 10.84 H (1.80-7.70) X 10*3/uL Monocytes # 1.39 H (0.20-1.00) X 10*3/uL Eosinophils # 0.37 H (0.04-0.35) X 10*3/uL Sodium 135 L (137-145) mmol/L Chloride 96 L (98-107) mmol/L Glucose 147 H (74-99) mg/dL POC Glucose (mg/dL) 131 H (70-110) mg/dL Uric Acid (3.7-8.7) mg/dL 07/07/22 Range/Units 11:35 WBC (4.50-10.00) X 10*3/uL RBC (4.40-5.60) X 10*6/uL Hgb (13.0-17.0) g/dL Hct (39.6-50.0) % Immature Gran # (0.00-0.04) X 10*3/uL Neutrophils # (1.80-7.70) X 10*3/uL Monocytes # (0.20-1.00) X 10*3/uL Eosinophils # (0.04-0.35) X 10*3/uL Sodium (137-145) mmol/L Chloride (98-107) mmol/L Glucose (74-99) mg/dL POC Glucose (mg/dL) 148 H (70-110) mg/dL Uric Acid (3.7-8.7) mg/dL Assessment and Plan (1) Acute diverticulitis Current Visit: Yes Status: Acute Code(s): K57.92 - DVTRCLI OF INTEST, PART UNSP, W/O PERF OR ABSCESS W/O BLEED SNOMED Code(s): 766286335 (2) Failure of outpatient treatment Current Visit: Yes Status: Acute Code(s): Z78.9 - OTHER SPECIFIED HEALTH STATUS SNOMED Code(s): 202093784 Plan: 1patient presented to hospital with sepsis in this patient did have a fever tachycardia elevated white count source is acute complicated diverticulitis with perforation and will need to cover for the enteric gram-negative both aerobes and anaerobes. 2patient seemed to have failed medical therapy in this patient who is status post laparotomy and diverting colostomy, no OR culture were done 3-patient slowly clinically improving and the white count is trending down to 14,000 today to continue with the Zosyn and Diflucan Time with Patient: Less than 30
--- NOTE | 2022-07-08 22:22 | P.PN ---
Subjective Progress Note Date: 07/08/22 Principal diagnosis: Acute complicated diverticulitis Patient is a 41-year-old male presented to the hospital with abdominal pain with a recent diagnosis of diverticulitis failing outpatient oral Augmentin therapy with repeat CAT scan shows perforation. Patient was taken to the OR 06/29/2022 status post laparotomy and diverting colostomy on today's evaluation that is 07/08/2022, the patient remains to be afebrile, the patient is breathing comfortably on room air, patient denies nausea, vomiting, the patient did have output in his colostomy bag and abdominal pain is currently controlled, the patient denies chest pain shortness of breath or cough, Objective - Vital Signs Vital signs: Vital Signs Temp 97.6 F 07/08/22 04:05 Pulse 77 07/08/22 04:05 Resp 16 07/08/22 04:05 BP 141/85 07/08/22 04:05 Pulse Ox 94 L 07/08/22 04:05 FiO2 Intake & Output 07/07/22 07/08/22 07/08/22 18:59 06:59 18:59 Output Total 350 1900 100 Balance -350 -1900 -100 Weight 138.346 kg 138.346 kg Output: Urine 1750 Stool 350 150 100 Other: Voiding Method Urinal Urinal # Voids 3 4 # Bowel Movements 1 - Exam GENERAL DESCRIPTION: Middle-aged male lying in bed in no distress RESPIRATORY SYSTEM: Unlabored breathing , decreased breath sounds at bases HEART: S1 S2 regular rate and rhythm , ABDOMEN: Soft , no tenderness EXTREMITIES: No edema feet - Labs CBC & Chem 7: 07/08/22 07:01 07/08/22 09:47 Labs: Abnormal Lab Results - Last 24 Hours (Table) 07/08/22 07/08/22 07/08/22 Range/Units 05:57 07:01 07:01 WBC 18.25 H (4.50-10.00) X 10*3/uL RBC 4.18 L (4.40-5.60) X 10*6/uL Hgb 12.9 L (13.0-17.0) g/dL Hct 38.9 L (39.6-50.0) % Plt Count 474 H (140-440) X 10*3/uL Immature Gran # 0.22 H (0.00-0.04) X 10*3/uL Neutrophils # 16.59 H (1.80-7.70) X 10*3/uL Sodium 136 L (137-145) mmol/L Potassium 5.3 H (3.5-5.1) mmol/L Chloride 96 L (98-107) mmol/L BUN 21 H (9-20) mg/dL Glucose 137 H (74-99) mg/dL POC Glucose (mg/dL) 140 H (70-110) mg/dL Assessment and Plan (1) Acute diverticulitis Current Visit: Yes Status: Acute Code(s): K57.92 - DVTRCLI OF INTEST, PART UNSP, W/O PERF OR ABSCESS W/O BLEED SNOMED Code(s): 957584378 (2) Failure of outpatient treatment Current Visit: Yes Status: Acute Code(s): Z78.9 - OTHER SPECIFIED HEALTH STATUS SNOMED Code(s): 856771754 Plan: 1patient presented to hospital with sepsis in this patient did have a fever tachycardia elevated white count source is acute complicated diverticulitis with perforation and will need to cover for the enteric gram-negative both aerobes and anaerobes. 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
[2022-07-09] MEDS: HYDROcodone/APAP 5-325MG 1 EACH TAB PO PRN ×2 (02:32→06:11)
[2022-07-09] MEDS: PIPERACILLIN-TAZOBACTAM 3.375 GM in SODIUM CHLORIDE 0.9% 100 ML IVPB SCH (04:38)
[2022-07-09 05:01] VITALS: BP 137/76; PULSE 89; RESP 20; TEMP 98.7
[2022-07-09] MEDS: IBUPROFEN 800 MG TAB PO SCH (08:40)
[2022-07-09] MEDS: DOCUSATE 100 MG CAP PO SCH (08:41)
[2022-07-09] MEDS: PANTOPRAZOLE 40 MG/10 ML VIAL IV SCH (08:42)
[2022-07-09] MEDS: ENOXAPARIN 40 MG/0.4 ML SYRINGE SQ SCH (08:42)
[2022-07-09] MEDS: methylPREDNISolone SOD SUCCI 125 MG/2 ML VIAL IV SCH (08:42)
[2022-07-09] MEDS: FLUCONAZOLE 100 MG TAB PO SCH (08:42)
[2022-07-09] MEDS: SIMETHICONE 40 MG/0.6 ML DROPS 2,000 MG/30 ML BOTTLE PO SCH (08:43)
--- NOTE | 2022-07-09 13:04 | P.DS ---
Providers Date of admission: 06/22/22 15:45 Expected date of discharge: 07/09/22 Attending physician: Shree Kaba MD Consults: 06/23/22 08:37 Consult Physician Routine Consulting Provider: Sirisha Cortez Consult Reason/Comments: Failed outpatient antibiotics diverticulitis Do you want consulting provider notified?: Yes 06/29/22 17:26 Consult Physician Routine Consulting Provider: Leeroy Oconnor Consult Reason/Comments: Abnormal right kidney on CAT scan Do you want consulting provider notified?: Yes, Notify in am 07/07/22 12:29 Consult Physician Routine Consulting Provider: Delio Samayoa Consult Reason/Comments: left ankle/foot edema and pain, unsure if there is joint involvement Do you want consulting provider notified?: Yes Primary care physician: Papa Foster [facility] Course: Discharge Diagnosis: Sepsis Perforated sigmoid diverticulitis with pneumoperitoneum Leukocytosis Bilateral pedal edema and pain Impaired perfusion to the right upper pole kidney Morbid obesity Generalized weakness Hospital Course: 41-year-old male without significant past medical history who initially presented with acute sigmoid diverticulitis. He failed outpatient therapy with Augmentin. Patient again presented with worsening fevers and chills. Repeat CT abdomen pelvis showed perforated sigmoid diverticulitis with pneumoperitoneum. Surgery and infectious disease consultation. Patient opted for conservative management initially. Despite being on IV antibiotics, patient continued to have worsening abdominal pain and repeat CT demonstrated worsening abscess in the sigmoid colon region. He then had exploratory laparotomy with sigmoid colectomy and end colostomy on 06/29. One of the CT imaging, also demonstrated possible impaired perfusion to the right upper pole of kidney. Urology was consulted, transient finding likely secondary to infection extending into the retroperitoneum, no intervention per urology recommended. After surgery, patient was briefly on TPN and his diet was slowly advanced. At discharge, patient was able to tolerate low fiber diet. Towards the end of his hospitalization he did have bilateral pedal edema as well as pain concerning for possible gouty arthritis. He was evaluated by orthopedics as well. X-ray findings were not consistent with any signs of joint involvement. Significant pedal edema likely secondary to venous stasis and dependency. However patient did improve with short course of steroids and NSAIDs. At discharge he will be completing another 7 days of IV Zosyn and oral fluconazole. We will also discharge with a total of 5 days of steroids as longer steroid duration might hinder with wound healing. Patient will follow up with PCP as well as surgery in the outpatient setting. Patient seen and examined at bedside. Vital signs reviewed and stable. General: nontoxic, no distress, appears at stated age Derm: warm, dry Head: atraumatic, normocephalic, symmetric Eyes: EOMI, no lid lag, anicteric sclera Mouth: no lip lesion, mucus membranes moist Cardiovascular: S1S2 reg, no murmur Lungs: CTA bilateral, no rhonchi, no rales , no accessory muscle use Abdominal: soft, mild tenderness to palpation all quadrants, no guarding, no appreciable organomegaly, midline incision covered in dressing, left sided colostomy with stool Ext: no gross muscle atrophy, no contractures, bilateral dorsal foot improving tenderness and swelling, no MTP swelling bilaterally Neuro: CN II-XI grossly intact, no focal neuro deficits Psych: Alert, oriented, appropriate affect A total of 46 minutes of time were spent preparing this complex discharge summary. Patient was discharged on 07/09/22 at 8:21. Patient Condition at Discharge: Fair Plan - Discharge Summary Discharge Rx Participant: No New Discharge Prescriptions: New Fluconazole [Diflucan] 200 mg PO DAILY #14 tab Ibuprofen [Motrin] 800 mg PO TID #20 tab Piperacillin-Tazobactam [Zosyn] 3.375 gm IVPB Q8H each HYDROcodone/APAP 5-325MG [Pecos 5-325] 1 tab PO Q6HR PRN 3 Days #12 tab PRN Reason: Pain predniSONE [Deltasone] 40 mg PO DAILY #8 tab Continue Omeprazole 20 mg PO DAILY Ondansetron Odt [Zofran ODT] 4 mg PO Q8HR PRN #10 tab PRN Reason: Nausea Testosterone Cypionate [Depo-Testosterone] 200 mg IM Q14D Discontinued Amoxic-Pot Clav 875-125Mg [Augmentin 875-125] 1 tab PO Q12HR #20 tab Discharge Medication List Omeprazole 20 mg PO DAILY 04/05/21 [History] Ondansetron Odt [Zofran ODT] 4 mg PO Q8HR PRN #10 tab 06/21/22 [Rx] Testosterone Cypionate [Depo-Testosterone] 200 mg IM Q14D 06/21/22 [History] HYDROcodone/APAP 5-325MG [Pecos 5-325] 1 tab PO Q6HR PRN 3 Days #12 tab 07/08/22 [Rx] Fluconazole [Diflucan] 200 mg PO DAILY #14 tab 07/09/22 [Rx] Ibuprofen [Motrin] 800 mg PO TID #20 tab 07/09/22 [Rx] Piperacillin-Tazobactam [Zosyn] 3.375 gm IVPB Q8H each 07/09/22 [Rx] predniSONE [Deltasone] 40 mg PO DAILY #8 tab 07/09/22 [Rx] Follow up Appointment(s)/Referral(s): Torsten Lind MD [Medical Doctor] - 1 Week Papa Kitchen MD [Primary Care Provider] - 1-2 days Patient Instructions/Handouts: Diverticulitis (DC), Colostomy Care (GEN), Diverticulitis Diet (DC) Activity/Diet/Wound Care/Special Instructions: Colostomy Care Recommendations for Home: Last Pouching System change: 07.08.2022 Mr Patton will have the follow colostomy care supplies for home on discharge from [facility]: [facility] one piece cut to fit pouching system #[id number] with filter (3) [facility] two [facility] flange moldable #[id number] (3) [employer] pouch with filter #[id number] (3) Ostomy powder (1) No sting prep pads (12) Mr Patton is to empty the pouching system while sitting on the toilet or facing the toilet when the bag is 1/2 to 1/3 full until he transitions to disposable daily use pouches. The entire pouching system is to be changed every 3- 5 days until he transitions to daily disposable wear pouches Ostomy samples will be sent to Mr Patton after discharge from the hospital from [facility] in approximately 5-7 days from the day of discharge No driving while taking [place] No lifting over 10 pounds You may shower. No soaking or tub baths for 2 weeks Very light activity until you are reevaluated at your follow up appointment with your surgeon Follow a low fiber diet until seen by surgeon NURSE TO CALL [facility] WHEN PT D/C SO THEY CAN RELEASE THE ANTIBIOTICS: call Discharge Disposition: HOME WITH HOME HEALTH SERVICES
== END 2022-07-09 12:16 | disposition home health service (06) | DRG 854 ==
LOC: EC 14:28 → 5NMEDONC 15:45
PROVIDERS: ADMIT Internal Medicine; ATTEND Internal Medicine
PROC: 0D1N0Z4 Bypass Sigmoid Colon to Cutaneous, Open Approach (ICD-10-PCS; 2022-06-29)
PROC: 3E0436Z Introduction of Nutritional Substance into Central Vein, Percutaneous Approach (ICD-10-PCS; 2022-06-29)
PROC: 0DTN0ZZ Resection of Sigmoid Colon, Open Approach (ICD-10-PCS; principal; 2022-06-29 16:53)
DX: A41.9 Sepsis, unspecified organism (principal); E44.0 Moderate protein-calorie malnutrition; K57.20 Diverticulitis of large intestine with perforation and abscess without bleeding; Z68.41 Body mass index [BMI] 40.0-44.9, adult; E66.01 Morbid (severe) obesity due to excess calories; I77.810 Thoracic aortic ectasia; I08.0 Rheumatic disorders of both mitral and aortic valves; K66.8 Other specified disorders of peritoneum; K66.0 Peritoneal adhesions (postprocedural) (postinfection); R74.01 Elevation of levels of liver transaminase levels; E55.9 Vitamin D deficiency, unspecified; R74.8 Abnormal levels of other serum enzymes; R94.31 Abnormal electrocardiogram [ECG] [EKG]; K59.00 Constipation, unspecified; N28.1 Cyst of kidney, acquired; M79.89 Other specified soft tissue disorders; R60.0 Localized edema; I87.8 Other specified disorders of veins; E87.6 Hypokalemia; R26.2 Difficulty in walking, not elsewhere classified; Z90.49 Acquired absence of other specified parts of digestive tract; Z84.1 Family history of disorders of kidney and ureter
CPT/HCPCS: 36415; 36573; 64999; 74018; 74177; 80048; 80053; 82330; 83605; 83735; 84100; 84132; 84478; 84550; 85025; 85610; 86140; 86850; 86900; 86901; 87040; 88307; 93005; 93306; 94760; 96361; 96365; 96375; 96376; 99285